=== PATIENT | female | born 1955 | race African-American/Black ===

== ENCOUNTER 2017-02-12 09:29 | Inpatient (IN) | payer MEDICARE, MEDICAID ==
[~2017-02-12] VITALS: Ht 152.4 cm; Wt 63.6 kg
--- NOTE | ~2017-02-12 | HEMODYNAMI ---
PATIENT:SARAH ROBERTS MEDICAL RECORD: [id number] : 57 LOCATION:[address] ADMISSION DATE: 02/12/17 Generatedon:02/16/201715:29 Patient name: SARAH ROBERTS Patient #: [id number] SSN: : 1955 Date of study: 02/16/2017 Page: Of Hemodynamic Procedure Report Patient Data Patient Demographics Procedure consent was obtained First Name: SARAH Gender: Female Last Name: ARMANDO : 1955 [facility] Initial: JOHN Age: 61 year(s) Patient #: [id number] Race: Black Additional ID: [id number] Contact details [address]: [address] [place] [address] State: [place] City: [place] Zip code: [address] Admission Admission Data Admission Date: 02/12/2017 Admission Time: 9:29 Room #: [facility] Procedure Procedure Types Cath Procedure Peripheral Cath Diagnostic Procedure Abd/Extremity Procedure Description Procedure Date Procedure Date: 02/16/2017 Procedure Start Time: 14:59 Procedure Staff Name Function Geoff Ureña MD Performing Physician Jamaal Steward RT Scrub Laquita Hernandez RN Nurse Jamaal Steward RT Monitor Procedure Data Cath Procedure Fluoroscopy Diagnostic fluoroscopy Total fluoroscopy Time: 2.4 time: 2.4 min min Diagnostic fluoroscopy Total fluoroscopy dose: 278 dose: 278 mGy mGy Contrast Material Contrast Material Type Amount (ml) Isovue 300 47 Entry Location Entry Primary Successful Side Size Upsize Upsize Entry Closure Succes sful Closure Location (Fr) 1 (Fr) 2 (Fr) Remarks Device Remarks Femoral Left 5 Fr Exoseal artery Diagnostic catheters Device Type Used For End Catheter Placement Merit UHF Pigtail VESSEL SIZING 5Fr 65CM catheter Procedure Medications Medication Administration Route Dosage Fentanyl I.V. 50 mcg Versed I.V. 1 mg Hemodynamics Rest Heart Rate: 91 (bpm) Snapshots Pre Cath Intra NCS Post Cath Vital Signs Time Heart Resp SPO2 NIBP (mmHg) Rhythm Pain Sedation Rate (ipm) (%) Status Level (bpm) 14:23:29 91 27 96 116/85(99) NSR 0 (11) 10(A) , No pain 14:27:29 90 27 97 115/91(101) NSR 0 (11) 10(A) , No pain 14:31:30 91 33 93 117/82(101) NSR 0 (11) 10(A) , No pain 14:35:32 92 28 91 118/87(103) NSR 0 (11) 10(A) , No pain 14:39:32 92 29 95 121/89(105) NSR 0 (11) 10(A) , No pain 14:43:32 92 26 97 121/94(102) NSR 0 (11) 10(A) , No pain 14:47:35 91 25 98 118/82(100) NSR 0 (11) 10(A) , No pain 14:51:37 88 17 99 123/89(109) NSR 0 (11) 10(A) , No pain 14:55:43 91 30 100 119/82(99) NSR 0 (11) 10(A) , No pain 14:59:46 91 27 98 127/84(106) NSR 0 (11) 10(A) , No pain 15:03:50 92 21 94 123/92(109) NSR 0 (11) 9(A) , No pain 15:07:52 93 25 95 122/93(109) NSR 0 (11) 9(A) , No pain 15:11:51 93 14 94 122/96(108) NSR 0 (11) 9(A) , No pain 15:15:55 93 15 93 114/87(110) NSR 0 (11) 9(A) , No pain 15:19:57 93 19 96 116/84(103) NSR 0 (11) 9(A) , No pain 15:23:59 92 18 96 122/86(101) NSR 0 (11) 9(A) , No pain 15:28:02 91 16 96 120/84(112) NSR 0 (11) 9(A) , No pain Medications Time Medication Route Dose Verified Delivered Reason Notes Effectivene ss by by 15:00:03 Fentanyl I.V. 50 Laquita Laquita for mcg Mary Mary sedation RN RN 15:00:14 Versed I.V. 1 mg Laquita Laquita for Mary Hernandez sedation RN finisher card tender Log Time Note 13:43:24 Time tracking: Regular hours 13:43:32 Plan of Care:Hemodynamics will remain stable., Cardiac rhythm will remain stable., Comfort level will be maintained., Respiratory function will remain adequate., Patient/ family verbilizes understanding of procedure., Procedure tolerated without complication., Recovers from procedure without complications.. 13:43:43 Patient received from PCU to [facility] 2 Alert and oriented. Tansferred to table in Supine position. 13:43:44 Correct patient and procedure confirmed by team. 13:43:45 Signed procedure consent form obtained from patient. 13:43:46 ECG and BP/O2 sat monitors applied to patient. 13:43:47 Full Disclosure recording started 13:43:48 - 13:43:53 H&P Date Dictated: 02/16/2017 Within 30 days and on chart.. 13:43:55 Pre-procedure instructions explained to patient. 13:43:56 Pre-op teaching completed and patient verbalized understanding. 13:43:58 Family in waiting room. 13:43:59 Patient NPO since Midnight. 13:44:06 Use device set IR Diagnostic 13:44:07 Acist Syringe opened to sterile field. 13:44:08 Acist Hand Control opened to sterile field. 13:44:08 Acist Manifold opened to sterile field. 13:44:09 Bag Decanter opened to sterile field. 13:44:09 Sterile Angiographic Pack opened to sterile field. 13:44:21 Is the patient allergic to Iodine/contrast media? No. 13:44:24 Is patient on blood thinner?No 13:44:25 Patient diabetic? Yes. 13:44:27 If diabetic: On Metformin? No 13:44:28 - 13:44:29 ----Pre-sedation anethsthesia assessment.---- 13:44:34 Previous problem with sedation/anesthesia? No ? 13:44:35 Snore? Yes 13:44:36 Sleep apnea? No 13:44:39 Deviated septum? No 13:44:41 Opens mouth fully? Yes 13:44:43 Sticks out tongue? Yes 13:44:51 Airway obstruction? Yes copd asthma 13:44:55 Dentures? No ? 13:53:14 Pre procedure: right dorsailis pedis pulse Inaccessible 13:53:19 Pre procedure: right posterior tibial pulse Inaccessible 13:53:33 Pre procedure: right dorsailis pedis pulse 0-Absent 13:53:39 Pre procedure: left posterior tibial pulse Doppler 13:53:49 pt has aka on right side 14:18:35 Vital chart was started 14:18:36 Baseline sample Acquired. 14:18:44 Rhythm: sinus rhythm 14:43:08 Jamaal Steward RT (R) (CV) sent for patient. Start room use. 14:57:09 Physician arrived 14:57:10 --------ALL STOP TIME OUT------ 14:57:10 Final Timeout: patient, procedure, and site verified with staff and physician. All members of the team are in agreement. 14:57:55 Left groin site verified by team. 14:58:39 Physical assessment completed. ASA score P 3 - A patient with severe systemic disease as per Geoff Ureña MD. 14:58:44 Sedation plan: IV Moderate Sedation Versed, Fentanyl 14:59:02 Procedure started. 14:59:30 Local anesthetic to left femerol artery with Lidocaine 1% by Geoff Ureña MD.INITIAL ACCESS ONLY 15:00:03 Fentanyl 50 mcg I.V. was administered by Laquita Hernandez RN; for sedation; 15:00:14 Versed 1 mg I.V. was administered by Laquita Hernandez RN; for sedation; 15:00:28 A 5 Fr sheath was inserted into the Left Femoral artery 15:00:36 Terumo 5Fr Marathon Sheath opened to sterile field. 15:00:36 Cook DOC .035 guide wire opened to sterile field. 15:00:37 PERCUTANEOUS ENTRY 19GA needle opened to sterile field. 15:00:57 A [email or web address] UHF Pigtail VESSEL SIZING 5Fr 65CM catheter was advanced over the wire and used for . 15:08:30 BasixTOUCH Inflation Syringe opened to sterile field. 15:08:30 Cook GILLETTE 260 guide wire opened to sterile field. 15::28 Entrust 8 x 40 Stent was deployed across Undefined1 . 15:10:56 Inflation number: 1 A Cordis Powerflex Pro 8.0 x 40 x 80cm balloon was prepped and advanced across the Undefined1, then inflated to 0 ANAND for 0:01 (min:sec). 15:15:44 ANGIOSEAL-VIP PLUS 6 FR opened to sterile field. 15:19:23 Sheath removed intact; hemostasis achieved with Exoseal to the Left Femoral artery. 15:19:38 Procedure ended.(Physican Out) 15:21:34 Fluoroscopy time 02.40 minutes. 15:21:38 Fluoroscopy dose: 278 mGy 15:21:38 Flurop Dose total: 278 15:21:44 Contrast amount:Isovue 300 47ml. 15:21:46 Sharps counted by scrub and verified by R.N. 15:21:48 Insertion/operative site no bleeding no hematoma. 15:21:53 Post-op/insertion site Left Femoral artery dressed using a 4 x 4 and Tegaderm. 15:21:55 Post Procedure Pulses reassessed and unchanged 15:22:02 Post-procedure physical assessment completed. ASA score P 3 - A patient with severe systemic disease as per Geoff Ureña MD. 15:22:04 Post procedure rhythm: unchanged. 15:25:09 Procedure and supply charges have been captured, reviewed, submitted an d are correct. 15:29:05 Report given to PCU. 15:29:09 Patient transfered to PCU with Bed. 15:29:54 Vital chart was stopped Intervention Summary Intervention Notes Time ActionType Lesion and Equipment Action# Pressure Duration Attributes Used 15:: Deploy self Undefined1 Entrust 8 1 expanding x 40 stent Stent 15::56 Inflate Undefined1 Cordis 1 0 00:01 balloon Powerflex Pro 8.0 x 40 x 80cm balloon Device Usage Item Name Manufacture Quantity Catalog Number Hospital Part Current Minimal Lot# / Charge Number Stock Stock Serial# Code Acist Syringe Acist 1 77133 [id number] 672278 028018 20 Medical Systems Inc Acist Hand Acist 1 81337 219196 619222 074786 5 Control Medical Systems Inc Acist Acist 1 26999 208247 432015 648053 5 Manifold Medical Systems Inc Bag Decanter Microtek 1 2002S 358172 87486 507749 5 Medical Inc. Sterile Cardinal 1 [id number] 767496 238743 5 Angiographic Health Pack Terumo 5Fr Terumo 1 [id number] 446675 010885 551216 40 Marathon Sheath Cook DOC .035 Cook Medical 1 [id number] 952721 159678 5 [id number] guide wire PERCUTANEOUS Cook Medical 1 [id number] 676316 481115 5 [id number] ENTRY 19GA needle Merit F Merit 1 [id number] 118556 217322 5 Pigtail Medical VESSEL SIZING 5Fr 65CM catheter BasixTOUCH Merit 1 [id number] 134251 993341 697151 5 Inflation Medical Syringe Cook GILLETTE Cook Medical 1 [id number] 550654 849388 5 [id number] 260 guide wire Entrust 8 x Ev3 1 [id number] 650493 967893 563099 5 [id number] 40 Stent [id number] Cordis Cardinal 1 [id number] 582041 318490 820279 5 Powerflex Pro Health 8.0 x 40 x 80cm balloon ANGIOSEAL-VIP St Mervin 1 [id number] 871300 608957 5 [id number] PLUS 6 FR Signature Audit [place] Stage Time Signature Unsigned Intra-Procedure 02/16/2017 Jamaal 3:29:51 PM Shuffield RT (R) (CV) Signatures Monitor : Jamaal Signature : Jaradield RT Date : Time : [facility] [place] [address] [place] [address]
--- NOTE | 2017-02-12 09:57 | NUR ---
ARRIVE TO ROOM VIA HOME ELECTRIC WHEELCHAIR. ALERT AND ORIENTED X4. TRANSFER TO BED FROM WHEELCHAIR WITH OUT ASSISTANCE. RT AKA. LT LEG COLD TO TOUCH. FAINT PULSE PALPATED. NONSKID SOCK PLACED ON LT FOOT. INSTRUCT NOT TO EAT OR DRINK ANYTHING UNTIL CTA AFRO AND DOPPLER COMPLETE. DENIES ANY NEEDS. CONTINUE ADMISSION PROCESS. BED LOCKED AND LOW. CALL LIGHT IN REACH. TWO SIDERAILS UP.
[2017-02-12] MEDS ORDERED: TEMAZEPAM30 MG PO (10:25)
[2017-02-12] MEDS ORDERED: LIPITOR20 MG PO (10:27)
[2017-02-12] MEDS ORDERED: PROVENTIL HFA6.7 GM INH (10:27)
[2017-02-12 10:28] LABS: BASOPHILS 0.1 % (0-2); EOSINOPHILS 0.6 % (0-7); HEMOGLOBIN 13.1 g/dL (12-16); IMMATURE GRANULOCYTES 0.1 % (0-5); LYMPHOCYTES 38.8 % (15-50); MCH 24.8 pg (26.0-34.0); MCHC 31.2 g/dL (31.0-37.0); MCV 79.4 fL (80.0-100.0); MEAN PLATELET VOLUME 9.9 fL (7.4-10.4); MONOCYTES 6.5 % (2-11); NEUTROPHILS 53.9 % (40-80); PLATELET COUNT 314 10x3/uL (130-400); RBC 5.29 10x6/uL (4.00-5.40); RDW 14.6 % (11.5-14.5)
[2017-02-12] MEDS ORDERED: COUMADIN5 MG PO (10:28)
[2017-02-12] MEDS ORDERED: CYCLOBENZAPRINE10 MG PO (10:30)
[2017-02-12] MEDS ORDERED: FLUTICASONE PRO16 GM NASAL (10:31)
[2017-02-12] MEDS ORDERED: HUMALOG MIX 50/53 ML SC ×2 (10:32→10:33)
[2017-02-12] MEDS ORDERED: LIDODERM 5 %1 PATCH TRANSDERM (10:35)
[2017-02-12] MEDS ORDERED: LEVEMIR100 U/M1 SC (10:35)
[2017-02-12] MEDS ORDERED: SYNTHROID137 MCG PO (10:36)
[2017-02-12] MEDS ORDERED: LYRICA50 MG PO (10:37)
[2017-02-12] MEDS ORDERED: LISINOPRIL5 MG PO (10:37)
[2017-02-12 10:38] LABS: APTT 70.6 SECONDS (22.8-39.4)
[2017-02-12] MEDS ORDERED: METOPROLOL TART25 MG PO (10:39)
[2017-02-12] MEDS ORDERED: PROTONIX40 MG PO (10:40)
[2017-02-12] MEDS ORDERED: MIRALAX17 GM PO (10:40)
[2017-02-12] MEDS ORDERED: ULTRAM50 MG PO (10:41)
[2017-02-12 10:51] LABS: ALBUMIN 3.6 g/dL (3.4-5.0); ALKALINE PHOSPHATASE 84 U/L (46-116); ALT (SGPT) 50 U/L (10-68); BILIRUBIN - TOTAL 0.21 mg/dL (0.2-1.3); CALC OSMOLALITY 285 mosm/kg (275-300); CALCIUM 10.1 mg/dL (8.5-10.1); CARBON DIOXIDE 26.5 mmol/L (21.0-32.0); CHLORIDE - SERUM 107 mmol/L (98-107); CREATININE - SERUM 0.8 mg/dL (0.6-1.3); GLUCOSE 148 mg/dL (74-106); POTASSIUM - SERUM 4.3 mmol/L (3.5-5.1); PROTEIN - SERUM 7.8 g/dL (6.4-8.2); SODIUM 142 mmol/L (136-145); UREA NITROGEN 12 mg/dL (7-18); eGFR NON AFRICAN AMERICAN 77 mL/min (90-120)
[2017-02-12 11:03] LABS: INR 8.14 (0.85-1.17); PROTIME 69.8 SECONDS (11.6-15.0)
[2017-02-12 12:00] VITALS: BP 102/72
[2017-02-12 12:13] LABS: APPEARANCE HAZY (CLEAR); BILIRUBIN NEGATIVE (NEGATIVE); COLOR BROWN (YELLOW); GLUCOSE NEGATIVE (NEGATIVE); KETONE NEGATIVE (NEGATIVE); LEUKOCYTE ESTERASE 1+ (NEGATIVE); NITRITE NEGATIVE (NEGATIVE); PROTEIN 1+ mg/dL (NEGATIVE); SPECIFIC GRAVITY 1.025 (1.005-1.020); UROBILINOGEN NORMAL (NORMAL)
[2017-02-12 12:15] LABS: EPITHELIAL CELLS RARE /hpf (0-5); RED CELLS - URINE >50 /hpf (0-5); WHITE CELLS - URINE RARE /hpf (0-5)
[2017-02-12 12:16] LABS: BACTERIA MANY /hpf (NONE SEEN)
[2017-02-12 12:17] LABS: YEAST OCC /hpf (NONE SEEN)
[2017-02-12 12:41] VITALS: BP 103/74; Ht 152.4 cm; Wt 63.6 kg
[2017-02-12 16:00] VITALS: BP 80/56
--- NOTE | 2017-02-12 17:19 | NUR ---
ALERT AND ORIENTED X4. TIBIAL PULSE FAINT. VERIFY PULSE WITH DOPPLER. TIBIAL PULSE MARKED. DOCTOR EXPLAIN INR TOO HIGH TO OPERATED. PLAN TO MONITOR INR FOR THERAPEUTIC RANGE BEFORE PROGRESSING WITH PLAN OF CARE. DENIES ANY NEEDS. BED LOCKED AND LOW. CALL LIGHT IN REACH. TWO SIDERAILS UP. SINUS TACH 112bpm ON TELEMETRY.
--- NOTE | 2017-02-12 19:44 | NUR ---
RESUMED CARE OF PT, LYING IN BED RESPIRATIONS EVEN AND UNLABORED ON ROOM AIR. RIGHT WRIST SALINE LOCKED. 114 ST ON TELEMETRY. COMPLAINS OF LEFT KNEE PAIN. WILL CONTINUE TO MONITOR. SEE NURSE ASSESSMENT. CALL LIGHT IN REACH.
--- NOTE | 2017-02-12 22:23 | NUR ---
NIGHT MEDS GIVEN, 54 UNITS OF LEVEMIER GIVEN FSBS 144, HUMALOG HELD. WILL CONTINUE TO MONITOR.
[2017-02-12 23:00] VITALS: BP 97/65
--- NOTE | 2017-02-13 00:45 | NUR ---
LYING IN BED WITH EYES CLOSED, CALL LIGHT IN REACH. WILL CONTINUE TO MONITOR.
[2017-02-13 01:51] VITALS: BP 100/80
--- NOTE | 2017-02-13 02:20 | NUR ---
2117: RESPIRATORY AT BEDSIDE TO GIVE TREATMENT, NURSE AT BEDSIDE TO OBTAIN FSBS. RESPIRATORY STATED HAVING A DIFFICULT TIME GETTING PULSE OX READING. @ 2000 VS PULSE OX WAS 94% ON ROOM AIR. 2126: BACK TO ADMINISTER INSULIN AND PT WAS ON 5.5 LPM VIA NC, CHECKED PULSE OX AND GOT A READING OF 99%. 2210: DECREASED O2 TO 4LPM, HOLDING O2 SATURATION @ 99% 2349: DECREASED O2 TO 3LPM, 98% 0100: 100% ON 1.5LPM 0215: 100% ON ROOM AIR.
--- NOTE | 2017-02-13 04:23 | NUR ---
AUTOMOBILE SALES REPRESENTATIVE AT BEDSIDE TO OBTAIN VITALS, CALL LIGHT IN REACH. WILL CONTINUE WITH PLAN OF CARE.
[2017-02-13 05:31] LABS: INR 6.59 (0.85-1.17); PROTIME 58.9 SECONDS (11.6-15.0)
[2017-02-13 05:36] VITALS: BP 99/63
--- NOTE | 2017-02-13 06:37 | NUR ---
NO CHANGES FROM PREVIOUSE ASSESSMENT, CALL LIGHT IN REACH.
--- NOTE | 2017-02-13 07:35 | NUR ---
ASSESSMENT COMPLETED. TELEMERTY SHOWS ST 103. RIGHT WRIST SL. RIGHT AKA JUST BELOW HIP. PT GETS UP TO BEDSIDE COMMODE BY HER SELF.LEFT LEG HAS SOME NUMBNESS TO CALF AREA. PT DENIES ANY NEEDS AT PRESENT TIME.
[2017-02-13 08:00] VITALS: BP 89/57
[2017-02-13 11:55] VITALS: BP 98/63
--- NOTE | 2017-02-13 13:50 | NUR ---
LYING QUIETLY WITH EYES CLOSED. NO DISTRESS NOTED. WILL MONITOR
--- NOTE | 2017-02-13 15:58 | NUR ---
UP ON SIDE OF BED. DENIES ANY NEEDS. CALL LIGHT IN REACH WITH SR UP. WILL MONITOR
[2017-02-13 16:00] VITALS: BP 103/69
--- NOTE | 2017-02-13 20:26 | NUR ---
PT RESTING IN BED. ALERT/ORIENTED. WEARING O2 @2 L/NC. SALINE LOCK TO RIGHT WRIST. SEE ASSESSMENT, MONITOR AND CPOC.
[2017-02-13 21:01] VITALS: BP 95/61
[2017-02-14 01:04] VITALS: BP 99/64
[2017-02-14 04:18] VITALS: BP 98/69
[2017-02-14 06:43] LABS: INR 3.42 (0.85-1.17); PROTIME 34.9 SECONDS (11.6-15.0)
[2017-02-14 08:00] VITALS: BP 102/63
--- NOTE | 2017-02-14 11:22 | NUR ---
ALERT AND ORIENTED X4. BATH AND LINEN CHANGE COMPLETE. UP IN WHEELCHAIR RIDING IN [place]. SINUS TACH 103bpm ON TELEMETRY. DENIES ANY NEEDS. URINE COLLECTED AND TAKEN TO LAB. CONTINUE PLAN OF CARE AND SAFETY PRECAUTIONS.
[2017-02-14 12:00] VITALS: BP 124/73
[2017-02-14 16:00] VITALS: BP 101/67
--- NOTE | 2017-02-14 17:06 | NUR ---
RESTING IN BED. ALERT AND ORIENTED X4. DENIES SOB OR PAIN. SINUS TACH 110bpm ON TELEMETRY. DENIES ANY NEEDS. CONTINUE PLAN OF CARE. BED LOCKED AND LOW. CALL LIGHT IN REACH. TWO SIDERAILS UP.
--- NOTE | 2017-02-14 19:36 | NUR ---
ASSESSMENT COMPLETEM A&O. SITTING UP IN BED WATCHING TV. RESPERATIONS EVEN ON 02 AT 2 LITER VIA NC. IV TO RIGHT WRIST SL. SITE CLEAN AND DRY. LIDOCAIN PATCH NOTED TO RIGHT AKA. LEFT LEG COOL TO THE TOUCH. PT DENIES PAIN OR NEEDS. BED LOW, CL IN REACH.
--- NOTE | 2017-02-14 21:53 | NUR ---
HS MEDS GIVEN WITH FRESH ICE WATER, BS 269, COVERED PER S/S. PT DENIES OTHER NEEDS, BED LOW, CL IN REACH.
--- NOTE | 2017-02-14 23:46 | NUR ---
METAL CONTROL COORDINATOR AT BEDSIDE TO OBTAIN VITALS, CALL LIGHT IN REACH. WILL CONTINUE WITH PLAN OF CARE.
[2017-02-15] VITALS: BP 107/65
--- NOTE | 2017-02-15 02:55 | NUR ---
RESTING WITH EYES CLOSED, RESPERATIONS EVEN, NO S/S DISTRESS NOTED.
[2017-02-15 04:00] VITALS: BP 97/67
[2017-02-15 05:57] LABS: INR 1.71 (0.85-1.17)
--- NOTE | 2017-02-15 07:15 | NUR ---
ASSESSMENT DONE. DENIES NEEDS.
--- NOTE | 2017-02-15 08:15 | NUR ---
RESTS IN BED EATING BRK. HAFSA NEEDS AT THJIS TIME. CALL LIGHT IN REACH. WILL MONITOR.
[2017-02-15 08:22] VITALS: BP 102/73
[2017-02-15 12:14] VITALS: BP 106/63
[2017-02-15 15:46] VITALS: BP 99/60
--- NOTE | 2017-02-15 17:22 | NUR ---
Patient Name: SARAH ROBERTS Admission Status: Urgent Accout number: [id number] Admission Date: 02-12-2017 : 1955 Admission Diagnosis:PAIN IN LEFT FOOT Attending: BRENDA Current LOS: 3 Anticipated DC Date: 02-15-2017 Planned Disposition: Home Primary Insurance: MEDICARE A & B Discharge Planning Comments: * Is the patient Alert and Oriented? Yes 0 * How many steps to enter\exit or inside your home? NONE 0 * PCP DR. RADHA WILLIS, [place], [place] 0 * Pharmacy [facility] 0 * Preadmission Environment Home Alone 0 * ADLs Independent 0 * Equipment Bedside Commode Shower Chair Wheelchair 0 WALKER 0 * Other Equipment ELECTRIC WHEELCHAIR NO MEDICAL EQUIPMENT PROVIDER PREFERENCE 0 * List name and contact numbers for known caregivers / representatives who currently or will assist patient after discharge: NYASIA ROSALES DTR, 0 * Community resources currently utilized Private Duty Care 0 * Please name any agencies selected above. [facility], DTR IS PT'S PAID CAREGIVER, ALL DAY EVERY DAY AND SOME NIGHTS PER PATIENT 0 * Additional services required to return to the preadmission environment? No 0 * Can the patient safely return to the preadmission environment? Yes 0 * Has this patient been hospitalized within the prior 30 days at any hospital? No 0 CM MET WITH PT IN ROOM TO DISCUSS DISCHARGE PLANNING AND NEEDS. PT REPORTS LIVING AT HOME INDEPENDENTLY AND ALONE. PT HAS [facility] WHO PAYS HER DAUGHTER CAREGIVER FOR PT EVERY DAY AND SOME NIGHTS. PT HAS BEDSIDE COMMODE, SHOWER CHAIR AND ELECTRIC WHEELCHAIR AND WALKER. PT REPORTS ABILITY TO TRANSFER SELF AND USE A WALKER FOR SHORT DISTANCES. CM DISCUSSED AVAILABILITY OF HOME HEALTH, REHAB SERVICES AND MEDICAL EQUIPMENT. PT DENIES DISCHARGE NEEDS, REPORTS SHE WILL NEED SCAT TRANSPORTATION ON DAY OF DISCHARGE FOR DISCHARGE HOME. PT PLANS TO DISCHARGE BACK TO HER APARTMENT WITH DAUGHTER PAID TIE PULLER CAREGIVER. CM TO ASSIST WITH ARRANGING MEDICAID TRANSPORTATION FOR DISCHARGE HOME; PT HAS ELECTRIC WHEELCHAIR WITH HER AND RODE THE MEDICAID BUS TO [place]. Project Structural Engineer: Hernando Yan
--- NOTE | 2017-02-15 18:18 | NUR ---
WITHOUT CHANGES OR DISTRESS NOTED AT THIS TIME DENIES NEEDS
[2017-02-15 19:00] VITALS: BP 111/72
--- NOTE | 2017-02-15 19:17 | NUR ---
UP IN W/C AROUND THE NURSES STATION, PT DENIES NEEDS.
--- NOTE | 2017-02-15 19:48 | NUR ---
RN ER AT BED SIDE, BATH IN PROGRESS.
--- NOTE | 2017-02-15 21:17 | NUR ---
HS MEDS GIVEN, BS 169, NO COVERAGE GIVEN DUE TO PT BEING NPO AFTER [place] FOR PROCEDURE. PT DENIES PAIN OR OTHER NEEDS, BED LOW, CL IN REACH.
[2017-02-16] VITALS (14 sets, daily range): BP systolic 99–138; BP diastolic 59–78
--- NOTE | 2017-02-16 02:10 | NUR ---
RESTING WITH EYES CLOSED, RESPERATIONS EVEN, NO S/S DISTRESS NOTED.
[2017-02-16 05:05] LABS: BASOPHILS 0.3 % (0-2); EOSINOPHILS 1.2 % (0-7); HEMATOCRIT 39.6 % (36.0-48.0); HEMOGLOBIN 12.3 g/dL (12-16); IMMATURE GRANULOCYTES 0.1 % (0-5); LYMPHOCYTES 41.4 % (15-50); MCH 24.2 pg (26.0-34.0); MCHC 31.1 g/dL (31.0-37.0); MONOCYTES 6.5 % (2-11); NEUTROPHILS 50.5 % (40-80); PLATELET COUNT 337 10x3/uL (130-400); RBC 5.08 10x6/uL (4.00-5.40); RDW 14.4 % (11.5-14.5); WBC 7.7 10x3/uL (4.8-10.8)
[2017-02-16 05:14] LABS: APTT 24.3 SECONDS (22.8-39.4)
[2017-02-16 05:17] LABS: INR 1.21 (0.85-1.17); PROTIME 15.2 SECONDS (11.6-15.0)
[2017-02-16 05:20] LABS: ANION GAP 13.7 mmol/L (8-16); CALCIUM 9.6 mg/dL (8.5-10.1); CARBON DIOXIDE 24.6 mmol/L (21.0-32.0); CREATININE - SERUM 0.9 mg/dL (0.6-1.3); POTASSIUM - SERUM 4.3 mmol/L (3.5-5.1)
--- NOTE | 2017-02-16 05:31 | NUR ---
BS 185 ON LAB DRAW, NO COVERAGE GIVEN DUE TO PT BEING NPO FOR PROCEDURE.
--- NOTE | 2017-02-16 12:46 | NUR ---
HAS BEEN UP IN WC. NOW RESTING IN BED. MONITOR SHOWS SR AT 93. WILL CONTINUE TO MONITOR.
--- NOTE | 2017-02-16 15:30 | NUR ---
RETURN FROM IR PER BED. LT GROIN DRSG C/D, PULSE PLAP
--- NOTE | 2017-02-16 18:39 | NUR ---
WITHOUT CHANGES OR DISTRESS NOTED AT THIS TIME. DENIES NEEDS.
--- NOTE | 2017-02-16 19:32 | NUR ---
INITIAL ROUNDS COMPLETEDA T 1920 HRS. PT IN MOTORIZED WHEELCAHIR IN HALLS. DENIES ANY DISCOMFORT. WILL CONTINUE TO MONITOR.
--- NOTE | 2017-02-16 21:56 | NUR ---
PM SNACK SERVED WITH PM MEDS. HUMALOG 6 UNITS GIVEN SUB-Q TO UPPER R ARM FOR BS 289. SCHEDULED LEVIMER GIVEN. ULTRAM 50 MG PO GIVNE FOR C/O L GROIN PAIN. WILL CONTINUE TO MONITOR. SR UP X2, CALL LIGHT WITHIN REACH.
[2017-02-17] VITALS: BP 95/65
--- NOTE | 2017-02-17 00:29 | NUR ---
PT AWAKE; DENIES ANY DISOCMFORT. NO CHANGES TO L GROIN OR L PEDAL PULSE NOTED. WILL CONTINUE TO MONITOR.
--- NOTE | 2017-02-17 02:18 | NUR ---
PT RESTING WITH EYES CLOSED. RESP EVEN AND REGULAR. SR UP X2, CALL LIGHT WITHIN REACH.
[2017-02-17 04:00] VITALS: BP 113/71
--- NOTE | 2017-02-17 04:49 | NUR ---
ULTRAM 50 MG PO GIVEN FOR C/O INCISIONAL PAIN. NO CHANGES TO L GROIN OR L PEDAL PULSES NOTED. WILL CONTINUE TO MONITOR.
[2017-02-17 05:25] LABS: INR 1.1 (0.85-1.17); PROTIME 14.1 SECONDS (11.6-15.0)
--- NOTE | 2017-02-17 06:40 | NUR ---
VSS THROUGHOUT NIGHT. PT STATED ULTRAM ALLEVIATED INCISIONAL PAIN. AM FSBS 165. SCHEDULED 50/50 GIVEN SUB-Q TO UPPER L ARM WELL 240CC OF APPLE JUICE. NEEDS MET; WILL CONTINUE TO MONITOR.
--- NOTE | 2017-02-17 07:46 | NUR ---
ASSESSMENT COMPLETED. TELEMERTY SHOWS ST AT 90. O2 AT 2 L/M PER NC. LEFT GROIN DRSG DRY AND INTACT. RIGHT FA SL, PATENT. DENIES ANY NEEDS. WILL MONITOR
[2017-02-17 08:00] VITALS: BP 107/80
[2017-02-17 12:00] VITALS: BP 96/57
--- NOTE | 2017-02-17 13:21 | NUR ---
UP TO BATHROOM. DENIES ANY NEEDS. CALL LIGHT IN REACH
--- NOTE | 2017-02-17 13:26 | HP ---
PATIENT: SRAAH ROBERTS [facility] MEDICAL RECORD: [id number] ACCOUNT: [id number] LOCATION:[address] : 57 ADMISSION DATE: 02/12/17 HISTORY AND PHYSICAL EXAMINATION SARAH Gallardo (61yo, F) ID# [id number]. Date/Time02/01/2017 02:[id number] 1955[facility] Dept.NPP[facility] ClinicProviderEDHENRIK DAVALOS MDInsuranceMed Primary: [place] ([place]) Insurance # : [id number] Employer Name : RETIRED Med Secondary: [place]) Insurance # : [id number] Employer Name : RETIRED Prescription: [facility] MEDICAID ADMINISTRATION - Member is eligible. Chief Complaint PVD - peripheral vascular disease initial appointment for PVD Patient's Care Team Primary Care Provider: STAN RAMIREZ [employer]: [address], [place] [address], , Vitals BP:100/70 sitting R arm 02/01/2017 02:07 pm 100/74 sitting L arm 02/01/2017 02:08 pmBP Cuff Size:adult 02/01/2017 02:07 pm adult 02/01/2017 02:08 pmHR:125,reg 02/01/2017 02:09 pmHt:5 ft 02/01/2017 02:09 pmWt:143 lbs 02/01/2017 02:09 pmNotes:had R leg amputated from "blood clot", now states LLE blood flow is faint and has pain in her leg and foot. 02/01/2017 02:10 pmBMI:27.9 02/01/2017 02:09 pmAllergies Reviewed Allergies NKDAMedications Reviewed Medications albuterol sulfate HFA 90 mcg/actuation aerosol inhaler Inhale 2 puff(s) every 4 hours by inhalation route.01/30/17 enteredKathy Wilsonatorvastatin 20 mg tablet Take 1 tablet(s) every day by oral route.01/30/17 enteredKathy WilsonCoumadin 5 mg tablet Take 1 tablet(s) every day by oral route.01/30/17 enteredKathy Wilsoncyclobenzaprine 10 mg tablet Take 1 tablet(s) 3 times a day by oral route.01/30/17 [facility] Allergy Relief 50 mcg/actuation nasal spray,suspension [place] 1 spray(s) every day by intranasal route.01/30/17 entered[facility] DowntownHumaLOG KwikPen 100 unit/mL subcutaneous Inject 24 unit(s) 3 times a day by subcutaneous route.01/30/[address] [facility]Radhavemir FlexTouch 100 unit/mL (3 mL) subcutaneous insulin pen Inject 54 unit(s) by subcutaneous route at bedtime.01/30/[address] [facility]levothyroxine 137 mcg capsule Take 1 capsule(s) every day by oral route.01/30/[address] HospitalLidoderm 5 % topical patch APPLY 1 PATCH BY TRANSDERMAL ROUTE ONCE DAILY (MAY WEAR UP TO 12HOURS.)01/30/[address] Hospitallisinopril 5 mg tablet Take 1 tablet(s) every day by oral route.01/30/[address] HospitalLyrica 50 mg capsule Take 1 capsule(s) 3 times a day by oral route.01/30/[address] Hospitalmetoprolol tartrate 25 mg tablet Take 2 tablet(s) twice a day by oral route.01/30/[address] HospitalMiralax 17 gram/dose oral powder HISTORY AND PHYSICAL [id number] SARAH ROBERTS Take by oral route.01/30/[address] Hospitalpantoprazole 40 mg tablet,delayed release Take 1 tablet(s) twice a day by oral route.01/30/[address] HospitalRestoril 30 mg capsule Take 1 capsule(s) every day by oral route as needed.01/30/[address] HospitaltraMADol 50 mg tablet Take 1 tablet(s) every 6 hours by oral route.01/30/17 [facility] oxygen 2L as directed Problems Reviewed Problems Chronic cerebrovascular accident - Onset: 02/01/2017 Diabetes mellitus - Onset: 02/01/2017 Limb pain at rest due to atherosclerosis of [place] artery - Onset: 02/01/2017 Peripheral arterial occlusive disease - Onset: 01/30/2017 Family History Discussed Family History Father- Heart disease ( age: 57)Social History Discussed Social History Cardiology Family history of heart disease?: N Smoking Status: Unknown if ever smoked High Cholesterol: Y High blood pressure: Y Exercise level: None Diabetes: Y Surgical History Reviewed Surgical History Amputation - 08/06/2015 - R" leg Removal of thyroid - 08/06/2009 stents in 2017 stomach surgery c_section x 2 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 HPI Peripheral Vascular Disease Reported by patient. HISTORY AND PHYSICAL [id number] SARAH ROBERTS Location: calf; foot Quality: cramping; burning; aching Severity: severe Alleviating Factors: rest; elevation Associated Symptoms: no skin discoloration; no fever atherosclerosis of the lower extremities with rest pain ROS Patient reports no incontinence, no difficulty urinating, no hematuria, and no increased frequency; stent right ureter. She reports no muscle aches, no muscle weakness, no arthralgias/joint pain, no back pain, and no swelling in the extremities; A-K amputation Right leg Rest pain left lower extremity . She reports no fever, no night sweats, no significant weight gain, no significant weight loss, and no exercise into lerance. She reports no dry eyes, no irritation, and no vision change. She reports no difficulty hearing and no ear pain. She reports no frequent nosebleeds and no nose/sinus problems. She reports no sore throat, no bleeding gums, no snoring, no dry mouth , no mouth ulcers, no oral abnormalities, and no teeth problems. She reports no jugular vein distension and no swollen glands. She reports no chest pain, no arm pain on exertion, no shortness of breath when walking, no shortness of breath when lying down, n o palpitations, and no known heart murmur. She reports no cough, no wheezing, no shortness of breath, and no coughing up blood. She reports no abdominal pain, no vomiting, normal appetite, no diarrhea, not vomiting blood, no nausea, and no constipation. S h e reports no abnormal mole, no jaundice, and no rashes. She reports no loss of consciousness, no weakness, no numbness, no seizures, no dizziness, and no headaches. She reports no depression, no sleep disturbances, feeling safe in relationship, and no alc ohol abuse. She reports no fatigue. She reports no swollen glands and no bruising. She reports no runny nose, no sinus pressure, no itching, no hives, and no frequent sneezing. ROS as noted in the HPI Physical Exam Patient is a 61-year-old female. Constitutional: General Appearance well nourished and developed and healthy-appearing; sitting in a motorized wheelchair. Level of Distress chronically ill. Ambulation ambulating normally and in wheelchair. Cardiovascular: Apical Impulse not displaced or no thrill. Heart Auscultation normal s1 and s2; no murmurs, rubs, or gallops; and RRR. Arterial Pulses no abdominal aorta bruits, femoral bruits, or popliteal bruits; popliteal not palpable (left) and dorsalis pedis not palpable (left); and 2+ bilateral, carotid 2+ bilateral, and femoral 2+ bilateral; high right AK amputation. Edema no edema or varicosities. Lungs: Repiratory Effort no dyspnea. Percussion no hyperresonance or dullness or flatness. Auscultation no wheezing, rhonchi, or rales / crackles and breathing sounds normal, good air movement, and CTA except as noted. Abdomen: Bowl Sounds normal. Inspection and Palpation no tenderness, guarding, masses, or rebound tenderness and soft and non-distended. Liver non-tender and no hepatomegaly. Spleen non-tender and no splenomegaly. Hernia none palpable. Musculoskeletal System: Gait And Stance right AK amputation. Digits and Nails normal nails and no cyanosis. Joints, Bones, and Muscles limited ROM and abnormal strength. Neurologic: Cranial Nerves grossly intact. Reflexes DTRs 2+ bilaterally throughout. HISTORY AND PHYSICAL [id number] SARAH ROBERTS JOHN Sensation abnormal (neuropathy). Lymph Nodes: Lymph Nodes no cervical LAD, supraclavicular LAD, axillary LAD, or inguinal LAD. Eyes: Lids and Conjunctivae no discharge or pallor and non-injected. Pupils PERRLA. Cornea grossly intact. EOM EOMI. Lens clear. Sclera non-icteric. Neck: Neck no masses, enlarged lymph nodes, or carotid bruits and supple and trachea midline. Thyroid no enlargement or nodules and non-tender. Skin: Inspection and Palpation no rash, lesions, ulcers, jaundice, or abnormal nevi. Assessment / Plan atherosclerosis lower extremity with rest pain 1. Limb pain at rest due to atherosclerosis of [place] artery M79.605: Pain in left leg 2. Diabetes mellitus E11.9: Type 2 diabetes mellitus without complications 3. Chronic cerebrovascular accident I63.8: Other cerebral infarction Discussion Notes atherosclerosis lower extremity rest pain Will need carotid Doppler study CT angiogram and pelvis lower extremity Admission hospital for workup pain control Return to Office to see Virgilio Davalos MD at [facility] on or around 02/15/2017 VIRGILIO DAVALOS MD at 1326 CC: [id number] DICTATION DATE: 02/01/17 1400 STAIR BUILDER: LIN 02/12/17 1213 ADM IN [place] [id number] [place] [id number]
[2017-02-17 16:00] VITALS: BP 93/61
--- NOTE | 2017-02-17 17:39 | NUR ---
UP IN WHEELCHAIR. DENIES ANY NEEDS. CALL LIGHT IN REACH WITH SR UP.WILL MONITOR.
--- NOTE | 2017-02-17 18:27 | NUR ---
UP IN HALLWAY WITH WHEELCHAIR. DENIES ANY NEEDS. WILL MONITOR
[2017-02-17 20:00] VITALS: BP 104/70
--- NOTE | 2017-02-17 21:57 | NUR ---
REC'D IN BATHROOM. ALERT AND ORIENTED X4. NO DISTRESS NOTED. DENIED PAIN AT THIS TIME. DENIED FURTHER NEEDS AT THIS TIME. INSTRUCTED TO CALL IF NEEDED ANYTHING. VERBALIZED UNDERSTANDING. BED LOW, LOCKED, CALL LIGHT IN REACH. WILL CONT TO MONITOR.
[2017-02-18 04:00] VITALS: BP 101/69
[2017-02-18 05:30] LABS: INR 1.21 (0.85-1.17); PROTIME 15.2 SECONDS (11.6-15.0)
--- NOTE | 2017-02-18 05:54 | NUR ---
RESTING IN BED. NO DISTRESS NOTED. WILL CONT TO MONITOR. BLD SUGAR 130. GAVE AM MEDS. DENIED PAIN, DENIED FURTHER NEEDS. BED LOW, LOCKED, CALL LIGHT IN REACH.
--- NOTE | 2017-02-18 07:38 | NUR ---
ASSESSMENT COMPLETED.TELEMERTY SHOWS SR AT 88. O2 PRN. LEFT GROIN WITH DRSG DRY AND INTACT.PPP. RIGHT FA SL. DENIES ANY NEEDS AT PRESENT TIME. SR UP WITH CALL LIGHT IN REACH. WILL MONITOR
[2017-02-18 08:38] VITALS: BP 89/61
[2017-02-18 12:36] VITALS: BP 107/77
--- NOTE | 2017-02-18 12:39 | NUR ---
UP IN CHAIR EATING LUNCH. DENIES ANY NEEDS. CALL LIGHT IN REACH WITH SR UP
[2017-02-18 20:00] VITALS: BP 81/60
--- NOTE | 2017-02-18 20:00 | NUR ---
PT UP IN SCOOTER IN ROOM. ALERT/ORIENTED. NONLABORED RESPIRATIONS ON ROOM AIR. DISCUSSED PLAN OF CARE/HS MEDS. SEE ASSESSMENT, MONITOR AND CPOC.
--- NOTE | 2017-02-18 22:02 | NUR ---
HS MEDS GIVEN. PT NOW IN BED AND WATCHING TV.
--- NOTE | 2017-02-18 22:53 | NUR ---
FSBS 221. SLIDING SCALE AND LEVEMIR ADMINISTERED.
[2017-02-19 04:00] VITALS: BP 90/69
[2017-02-19 07:07] LABS: PROTIME 17.6 SECONDS (11.6-15.0)
[2017-02-19 07:17] LABS: INR 1.46 (0.85-1.17)
--- NOTE | 2017-02-19 07:26 | NUR ---
AM ROUNDS- PT UP IN SCOOTER, BRUSHING HER TEETH. PT DENIES ANY NEEDS AT THIS TIME. RT FA IV SL. NAD NOTED, WILL CONTINUE TO MONITOR.
[2017-02-19 08:00] VITALS: BP 106/80
--- NOTE | 2017-02-19 08:34 | NUR ---
AM MEDS GIVEN AT THIS TIME. PT UP TO BRIA, STATES SHE JUST PLACED ON A LIDOCAINE PATCH THIS AM, TO LEAVE THE OTHER PATCH BY THE WINDOW. DENIES ANY NEEDS AT THIS TIME. CALL LIGHT IN REACH, NAD NOTED, WILL CONTINUE TO MONITOR.
[2017-02-19] MEDS ORDERED: ASPIRIN81 MG PO (09:19)
--- NOTE | 2017-02-19 10:27 | NUR ---
Patient Name: SARAH ROBERTS Encounter No: [id number] : 1955 Primary Insurance: MEDICARE A & B Anticipated DC Date: 02-20-2017 Planned Disposition: Home DCP follow-up note: CM RECEIVED DISCHARGE ORDER, MET WITH PT IN ROOM TO DISCUSS DISCHARGE NEEDS AND PLANNING. CM DISCUSSED AVAILABILITY OF HOME HEALTH, REHAB SERVICES AND MEDICAL EQUIPMENT. PT DENIES DISCHARGE NEEDS. MEDICAID BUS TO TRANSPORT HOME AT DISCHARGE. IMPORTANT MESSAGE FROM MEDICARE PROVIDED AND EXPLAINED. CM CALLED [facility], , SOPKE TO KYRIE WHO ADVISED THAT SHE DOES NOT HAVE WHEELCHAIR ACCESSIBLE VAN AVAILABLE TODAY TO POINTER MACHINE OPERATOR PT; PT PLACED ON SCHEDULE FOR TOMORROW, 02-20-17. BEDSIDE NURSE NOTIFIED. PT NOT IN ROOM, CM LEFT MESSAGE ON WHITE BOARD TO NOTIFY PT. [facility] ([facility]ICA[facility]) BUS TO POINTER MACHINE OPERATOR PT TOMORROW MORNING, 02-20-17, FOR TRANSPORTATION HOME. Hernando Yan, CASE MANAGEMENT
--- NOTE | 2017-02-19 11:19 | NUR ---
NOTIFIED TAINA/RN WITH DR. DAVALOS VIA PHONE THAT PT WILL NOT DC UNTIL TOMORROW AM WHEN MEDICAID VAN IS AVAILABLE FOR TRANSPORTATION
--- NOTE | 2017-02-19 11:31 | NUR ---
BLOOD SUGAR OF 208, 4UNITS OF HUMALOG GIVEN AND 12UNITS OF HUMALOG MIX 50/50 ORDERED. PT DENIES ANY NEEDS AT THIS TIME. CALL LIGHT IN REACH, NAD NOTED, WILL CONTINUE TO MONITOR.
[2017-02-19 12:17] VITALS: BP 127/86
--- NOTE | 2017-02-19 16:36 | NUR ---
BLOOD SUGAR OF 197, 2UNITS OF HUMALOG GIVEN PER S/S. AND 12UNITS OF NPH 50/50 ORDERED. PT IN BED, DENIES ANY NEEDS AT THIS TIME. CALL LIGHT IN REACH, NAD NOTED, WILL CONTINUE TO MONITOR.
[2017-02-19 20:00] VITALS: BP 101/64
--- NOTE | 2017-02-19 20:00 | NUR ---
PT RETURNED TO ROOM. ASSESSMENT COMPLETE. VOICES NO CO AT TIME.
--- NOTE | 2017-02-19 23:51 | NUR ---
SLEEPING NO DISTRESS NOTED. SR UP X 2 CALL LIGHT WITH IN REACH. AT SIDE.
--- NOTE | 2017-02-19 23:52 | NUR ---
WATCHING TV. VOICES NO CO AT TIME.
[2017-02-20] VITALS: BP 110/62
--- NOTE | 2017-02-20 00:27 | NUR ---
SLEEPING NO DISTRESS NOTED. SR UP X 2. CALL LIGHT WITH IN REACH.
--- NOTE | 2017-02-20 03:39 | NUR ---
SLEEPING NO DISTRESS NOTED. SR UP X 2. CALL LIGHT WITHIN REACH.
[2017-02-20 04:00] VITALS: BP 99/68
--- NOTE | 2017-02-20 04:41 | NUR ---
PT AWAKEN TO GIVE MEDS. VOICES NO CO AT TIME.
[2017-02-20 06:05] LABS: INR 1.75 (0.85-1.17); PROTIME 20.4 SECONDS (11.6-15.0)
--- NOTE | 2017-02-20 07:12 | NUR ---
AM ROUNDS- PT UP TO ELECTRIC SCOOTER. GETTING DRESSED. PT DENIES ANY NEEDS AT THIS TIME. CALL LIGHT IN REACH, NAD NOTED, WILL CONTINUE TO MONITOR.
--- NOTE | 2017-02-20 08:50 | NUR ---
PROVIDED VERBAL AND WRITTEN DISCHARGE INSTRUCTIONS TO PT. PT VEBALIZED UNDERSTANDING REGARDING DISCHARGE TEACHING. D/C RT FA IV, TIP INTACT. REMOVED HEART MONITOR AND GAVE IT TO [employer] PERSONNEL COUNSELOR. CALLED ER TO BRING PT'S WALLET THAT WAS TAKEN TO SAFE. NAD NOTED, CALL LIGHT IN REACH, WILL CONTINUE TO MONITOR.
--- NOTE | 2017-02-20 10:50 | NUR ---
Patient Name: SARAH ROBERTS Encounter No: [id number] : 1955 Primary Insurance: MEDICARE A & B Anticipated DC Date: 02-20-2017 Planned Disposition: Home DCP follow-up note: CM CALLED [facility], , SOPKE TO KYRIE WHO ADVISED THAT A WHEELCHAIR ACCESSIBLE VAN IS AVAILABLE AND WILL IVORY CARVER PT "SOME TIME TODAY". BEDSIDE NURSE NOTIFIED. PT NOTIFIED WHO DENIED FURHTER NEEDS. Hernando Yan, CASE MANAGEMENT
--- NOTE | 2017-02-20 11:04 | NUR ---
KEYA FROM ER ADMISSIONS CAME TO RETURN PT VALUABLES THAT WERE IN THE SAFE. PT UP TO SIDE OF BED, DENIES ANY NEEDS AT THIS TIME. CALL LIGHT IN REACH, NAD NOTED, WILL CONTINUE TO MONITOR.
--- NOTE | 2017-02-20 11:14 | NUR ---
BLOOD SUGAR OF 308, 8UNITS OF HUMALOG GIVEN PER S/S. PT DENIES ANY NEEDS AT THIS TIME, STATED SHE IS GOING TO RIDE AROUND UNTIL LUNCH GETS HERE. NAD NOTED, WILL CONTNUE TO MONITOR.
[2017-02-20 13:08] VITALS: BP 93/54
--- NOTE | 2017-02-20 17:00 | NUR ---
PT LEFT UNIT VIA ELECTRIC SCOOTER, NAD NOTED.
== END 2017-02-20 17:00 | disposition home or self-care (01) | DRG 254 ==
LOC: D.M2 09:29
PROVIDERS: Specialist; ADMIT Internal Medicine Cardiovascular Disease
PROC: 047C3ZZ Dilation of Right Common Iliac Artery, Percutaneous Approach (ICD-10-PCS; 2017-02-16)
PROC: 047D3DZ Dilation of Left Common Iliac Artery with Intraluminal Device, Percutaneous Approach (ICD-10-PCS; principal; 2017-02-16 14:15)
DX: I70.222 Atherosclerosis of native arteries of extremities with rest pain, left leg (principal); E11.40 Type 2 diabetes mellitus with diabetic neuropathy, unspecified; Z79.4 Long term (current) use of insulin; Z86.73 Personal history of transient ischemic attack (TIA), and cerebral infarction without residual deficits; Z89.611 Acquired absence of right leg above knee; K21.9 Gastro-esophageal reflux disease without esophagitis; T45.515A Adverse effect of anticoagulants, initial encounter; I65.22 Occlusion and stenosis of left carotid artery

== ENCOUNTER → 2017-04-19 10:08 | Outpatient (CLI) | payer MEDICARE, MEDICAID ==
[2017-02-12 12:41] VITALS: BMI 26.4
[~2017-04-19 10:08] MED LIST: ASPIRIN81 MG PO; COUMADIN5 MG PO; CYCLOBENZAPRINE10 MG PO; FLUTICASONE PRO16 GM NASAL; HUMALOG MIX 50/53 ML SC; LEVEMIR100 U/M1 SC; LIDODERM 5 %1 PATCH TRANSDERM; LIPITOR20 MG PO; LISINOPRIL5 MG PO; LYRICA50 MG PO; METOPROLOL TART25 MG PO; MIRALAX17 GM PO; PROTONIX40 MG PO; PROVENTIL HFA6.7 GM INH; SYNTHROID137 MCG PO; TEMAZEPAM30 MG PO; ULTRAM50 MG PO
== END | disposition home or self-care (01) ==
LOC: D.CT 10:00
DX: I65.23 Occlusion and stenosis of bilateral carotid arteries (principal)

== ENCOUNTER 2017-07-06 15:01 | Inpatient (IN) | payer MEDICARE, MEDICAID ==
[~2017-07-06] VITALS: Ht 152.4 cm; Wt 64.7 kg
--- NOTE | ~2017-07-06 | HEMODYNAMI ---
PATIENT:SARAH ROBERTS MEDICAL RECORD: [id number] : 57 LOCATION:[address] ADMISSION DATE: 07/06/17 Generatedon:07/09/201711:27 Patient name: SARAH ROBERTS Patient #: [id number] SSN: : 1955 Date of study: 07/09/2017 Page: Of Hemodynamic Procedure Report Patient Data Patient Demographics Procedure consent was obtained First Name: SARAH Gender: Female Last Name: ARMANDO : 1955 [facility] Initial: JOHN Age: 62 year(s) Patient #: [id number] Race: Black Additional ID: [id number] Contact details [address]: [address] [place] [address] State: [place] City: [place] Zip code: [address] Admission Admission Data Admission Date: 07/06/2017 Admission Time: 15:01 Room #: 2126 Procedure Procedure Types Cath Procedure Peripheral Cath Diagnostic Procedure Abd/Extremity Extremities Bilat Lower Extremity Procedure Description Procedure Date Procedure Date: 07/09/2017 Procedure Start Time: 9:20 Procedure Staff Name Function Jamaal Steward RT Monitor Chance Laws MD Performing Physician Loretta Clark RT Scrub Sujey Meyer RN Nurse Procedure Data Cath Procedure Fluoroscopy Diagnostic fluoroscopy Total fluoroscopy Time: time: 14.1 min 14.1 min Diagnostic fluoroscopy Total fluoroscopy dose: 386 dose: 386 mGy mGy Entry Location Entry Primary Successful Side Size Upsize Upsize Entry Closure Succes sful Closure Location (Fr) 1 (Fr) 2 (Fr) Remarks Device Remarks Femoral Left 5 Fr Exoseal artery Femoral Left 6 Fr Exoseal artery Short Diagnostic catheters Device Type Used For End Catheter Placement Merit ULTRA BOLUS FLUSH Abdominal 5Fr 65CM catheter aortogram Procedure Medications Medication Administration Route Dosage Versed I.V. 1 mg Fentanyl I.V. 50 mcg Ancef (1Gm/50ml NS) 1 g Versed I.V. 1 mg Fentanyl I.V. 50 mcg Heparin Bolus I.V. 4000 units Versed I.V. 1 mg Fentanyl I.V. 50 mcg Nitroglycerin IC/IA I.A. 200 Versed I.V. 1 mg Fentanyl I.V. 50 mcg Heparin Bolus I.V. 2000 units Hemodynamics Rest Heart Rate: 97 (bpm) Pressure Samples Time Site Value (mmHg) Purpose Heart Use Rate(bpm) 9:30 AO 142/90(112) Snapshot 103 9:30 AO 122/83(101) Snapshot 103 Snapshots Pre Cath Intra NCS Post Cath Vital Signs Time Heart Resp SPO2 etCO2 NIBP (mmHg) Rhythm Pain Sedation Rate (ipm) (%) (mmHg) Status Level (bpm) 8:55:31 96 17 98 26.9 124/87(102) NSR 0 (11) 10(A) , No pain 8:59:41 95 19 99 25.4 128/89(121) NSR 0 (11) 10(A) , No pain 9:03:50 98 26 97 29.2 129/86(105) NSR 0 (11) 10(A) , No pain 9:08:00 99 22 96 24.7 130/94(115) NSR 0 (11) 10(A) , No pain 9:12:10 98 16 98 18.7 127/96(114) NSR 0 (11) 10(A) , No pain 9:16:20 98 18 100 24.7 133/103(116) NSR 0 (11) 10(A) , No pain 9:20:30 100 29 24.7 132/98(113) NSR 0 (11) 10(A) , No pain 9:24:40 100 26 23.2 134/98(114) NSR 0 (11) 10(A) , No pain 9:28:50 102 19 100 11.9 140/101(121) NSR 0 (11) 10(A) , No pain 9:33:00 101 17 96 0 140/94(123) NSR 0 (11) 10(A) , No pain 9:37:09 100 15 98 0 139/102(117) NSR 0 (11) 10(A) , No pain 9:41:18 101 18 97 0 143/96(125) NSR 0 (11) 10(A) , No pain 9:45:27 101 16 97 24.7 138/95(117) NSR 0 (11) 10(A) , No pain 9:49:39 100 19 97 0 135/101(115) NSR 0 (11) 10(A) , No pain 9:53:47 99 21 97 27.7 140/100(116) NSR 0 (11) 10(A) , No pain 9:57:59 100 19 96 27.7 141/107(121) NSR 0 (11) 10(A) , No pain 10:02:11 100 20 94 10.4 137/99(134) NSR 0 (11) 10(A) , No pain 10:06:21 99 21 95 12.7 138/98(134) NSR 0 (11) 10(A) , No pain 10:10:33 101 19 97 4.4 145/106(125) NSR 0 (11) 10(A) , No pain 10:14:45 102 17 97 24.7 151/94(123) NSR 0 (11) 10(A) , No pain 10:19:01 104 23 49 11.2 156/115(132) NSR 0 (11) 10(A) , No pain 10:23:19 105 15 99 23.2 156/111(125) NSR 0 (11) 10(A) , No pain 10:27:37 107 19 97 26.2 159/108(132) NSR 0 (11) 10(A) , No pain 10:31:57 107 16 97 29.9 153/113(133) NSR 0 (11) 10(A) , No pain 10:36:15 107 17 98 19.4 157/111(135) NSR 0 (11) 10(A) , No pain 10:40:33 105 18 96 2.2 158/106(150) NSR 0 (11) 10(A) , No pain 10:44:49 106 21 96 22.4 153/107(120) NSR 0 (11) 10(A) , No pain 10:49:07 107 21 99 24.7 144/109(126) NSR 0 (11) 10(A) , No pain 10:53:17 105 20 96 28.4 149/101(132) NSR 0 (11) 10(A) , No pain 10:57:33 113 28 98 14.9 161/116(138) NSR 0 (11) 10(A) , No pain 11:01:55 110 19 100 11.9 164/117(138) NSR 0 (11) 10(A) , No pain 11:06:05 107 18 99 2.9 147/106(131) NSR 0 (11) 10(A) , No pain 11:10:21 106 18 99 24.6 154/105(131) NSR 0 (11) 10(A) , No pain 11:14:39 110 21 100 11.9 161/114(137) NSR 0 (11) 10(A) , No pain Medications Time Medication Route Dose Verified Delivered Reason Notes Effecti veness by by 9:24:53 Versed I.V. 1 mg Chance Sujey for Eusebia Meyer RN sedation 9:25:05 Fentanyl I.V. 50 mcg Chance Sujey for Eusebia Meyer RN sedation 9:28:52 Ancef I.V.P. 1 g Chance Sujey (1Gm/50ml NS) Eusebia Meyer RN, MD 9:52:29 Versed I.V. 1 mg Chance Sujey for Eusebia Meyer RN sedation 9:52:39 Fentanyl I.V. 50 mcg Chance Sujey for Eusebia Meyer RN sedation 9:58:02 Heparin Bolus I.V. 4000 Chance Sujey Per units Eusebia Meyer RN physician 10:12:15 Versed I.V. 1 mg Chance Sujey for Eusebia Meyer RN sedation 10:12:23 Fentanyl I.V. 50 mcg Chance Alonzoody for Eusebia Meyer RN sedation 10:43:41 Nitroglycerin I.A. 200MCG Chance Fletcher IC/IA Eusebia Laws MD, MD 10:46:04 Versed I.V. 1 mg Chance Sujey for Eusebia Meyer RN sedation 10:46:15 Fentanyl I.V. 50 mcg Chance Sujey for Eusebia Meyer RN sedation 10:53:28 Heparin Bolus I.V. 2000 Chance Sujey Per units Eusebia Meyer RN physician Procedure Log Time Note 8:41:20 Jamaal Steward RT (R) (CV) sent for patient. Start room use. 8:54:03 Time tracking: Regular hours 8:54:10 Plan of Care:Hemodynamics will remain stable., Cardiac rhythm will remain stable., Comfort level will be maintained., Respiratory function will remain adequate., Patient/ family verbilizes understanding of procedure., Procedure tolerated without complication., Recovers from procedure without complications.. 8:54:19 Patient received from [employer] to IR Alert and oriented. Tansferred to table in Supine position. 8:54:25 Correct patient and procedure confirmed by team. 8:54:27 Signed procedure consent form obtained from patient. 8:54:28 Vital chart was started 8:54:28 ECG and BP/O2 sat monitors applied to patient. 8:54:29 Baseline sample Acquired. 8:54:32 - 8:54:32 Full Disclosure recording started 8:54:35 H&P Date Dictated: 07/09/2017 Within 30 days and on chart.. 8:54:36 Pre-op teaching completed and patient verbalized understanding. 8:54:36 Pre-procedure instructions explained to patient. 8:54:38 Family unavailable. 8:54:41 Patient NPO since Midnight. 8:54:45 Is the patient allergic to Iodine/contrast media? No. 8:54:48 Was the patient premedicated? No 8:54:52 Is patient on blood thinner?No 8:54:53 Patient diabetic? Yes. 8:54:55 If diabetic: On Metformin? Yes 8:54:59 If on Metformin: Last Dose? 07/08/2017 8:55:01 - 8:55:02 ----Pre-sedation anethsthesia assessment.---- 8:55:08 Previous problem with sedation/anesthesia? No ? 8:55:11 Snore? Yes 8:55:12 Sleep apnea? Yes 8:55:14 Deviated septum? No 8:55:15 Opens mouth fully? Yes 8:55:16 Sticks out tongue? Yes 8:55:17 Airway obstruction? No ? 8:55:19 Dentures? No ? 8:55:25 Pre procedure: left dorsailis pedis pulse 0-Absent 8:55:32 Pre procedure: left posterior tibial pulse Doppler 8:55:46 PT HAS AKA ON RIGHT 8:55:51 Use device set IR Diagnostic 8:55:53 ACIST Hand Control (30545) opened to sterile field. 8:55:53 ACIST Syringe (85751) opened to sterile field. 8:55:54 ACIST Manifold (91850) opened to sterile field. 8:55:55 Bag Decanter (2002S) opened to sterile field. 8:55:58 Sterile Angiographic Pack opened to sterile field. 8:56:14 Patient pain scale 0/10 NO PAIN. 8:56:24 IV patent on arrival in left forearm with 0.9% NaCl at [facility]. 8:56:25 Sharps counted by scrub and verified by R.N. 8:56:26 Alarms reviewed by R. N. 8:56:29 Left groin area was prepped with chlora-prep and draped in sterile fashion 9:18:52 Physician arrived 9:18:53 --------ALL STOP TIME OUT------ 9:18:54 Final Timeout: patient, procedure, and site verified with staff and physician. All members of the team are in agreement. 9:18:56 Left groin site verified by team. 9:19:01 Sedation plan: IV Moderate Sedation Medication:Versed, Fentanyl 9:20:27 Procedure started. 9:20:31 Local anesthetic to left femerol artery with Lidocaine 1% by Chance Laws MD.INITIAL ACCESS ONLY 9:20:47 A 5 Fr sheath was inserted into the Left Femoral artery 9:20:52 Cook e-voloSON 145cm guide wire opened to sterile field. 9:20:53 Terumo 5Fr Jackson Sheath opened to sterile field. 9:20:53 Micropuncture VSI 4FR kit opened to sterile field. 9:20:54 TUBING, CONTRAST INJCTN HI PRES opened to sterile field. 9:24:53 Versed 1 mg I.V. was administered by Sujey Meyer RN; for sedation; 9:25:05 Fentanyl 50 mcg I.V. was administered by Sujey Meyer RN; for sedation ; 9:28:52 Ancef (1Gm/50ml NS) 1 g I.V.P. was administered by Sujey Meyer RN; ; 9:29:01 A Electro-LuminX ULTRA BOLUS FLUSH 5Fr 65CM catheter was advanced over the wire and used for Abdominal aortogram. 9:29:19 Zero performed for pressure channel P1 9:35:32 BasixTOUCH Inflation Syringe opened to sterile field. 9:36:09 Inflation number: 1 A CordCARDFREE Powerflex Pro 8.0 x 40 x 80cm balloon was prepped and advanced across the Undefined1, then inflated 9:49:10 Terumo 6Fr Jackson Sheath opened to sterile field. 9:49:34 A 6 Fr Short sheath was inserted into the Left Femoral artery 9:52:03 Micropuncture VSI 4FR kit opened to sterile field. 9:52:29 Versed 1 mg I.V. was administered by Sujey Meyer RN; for sedation; 9:52:39 Fentanyl 50 mcg I.V. was administered by Sujey Meyer RN; for sedation ; 9:53:57 Kiana Sci Choice PT Extra Support J 300cm .014 gu opened to sterile field. 9:58:02 Heparin Bolus 4000 units I.V. was administered by Sujey Meyer RN; Per physician; 9:58:24 CXI Catheter 90cm opened to sterile field. 9:58:[address] .035 145 glide wire opened to sterile field. 10:12:15 Versed 1 mg I.V. was administered by Sujey Meyer RN; for sedation; 10:12:23 Fentanyl 50 mcg I.V. was administered by Sujey Meyer RN; for sedation ; 10:15:33 Copilot Bleedback Control Valve opened to sterile field. 10:18:42 Inflation number: 2 A Saber 2 x 200 x150 balloon was prepped and advanced across the Undefined1, then inflated to 10:35:39 Inflation number: 3 A Saber 2.5 X 200 X 150 balloon was prepped and advanced across the Undefined1, then inflated 10:43:41 Nitroglycerin IC/IA 200MCG I.A. was administered by Chance Laws MD; ; 10:46:04 Versed 1 mg I.V. was administered by Sujey Meyer RN; for sedation; 10:46:15 Fentanyl 50 mcg I.V. was administered by Sujey Meyer RN; for sedation ; 10:53:28 Heparin Bolus 2000 units I.V. was administered by Sujey Meyer RN; Per physician; 11:06:45 EXOSEAL 6Fr (EX600) opened to sterile field. 11:07:58 Sheath removed intact; hemostasis achieved with Exoseal to the Left Femoral artery. 11:08:05 Sheath removed intact; hemostasis achieved with Exoseal to the Left Femoral artery. 11:08:11 EXOSEAL 5Fr (EX500) opened to sterile field. 11:08:30 Procedure ended.(Physican Out) 11:10:01 Fluoroscopy time 14.10 minutes. 11:10:08 Fluoroscopy dose: 386 mGy 11:10:08 Flurop Dose total: 386 11:16:24 Sharps counted by scrub and verified by R.N. 11:16:25 Insertion/operative site no bleeding no hematoma. 11:16:30 Post-op/insertion site Left Femoral artery dressed using a 4 x 4 and Tegaderm. 11:16:35 Post left femerol artery:stable 11:16:54 Post Procedure Pulses reassessed and unchanged 11:17:02 Post procedure rhythm: unchanged. 11:17:05 Post procedure instruction explained to patient.Patient verbalizes understanding. 11:17:07 Procedure and supply charges have been captured, reviewed, submitted an d are correct. 11:17:26 Full Disclosure recording stopped 11:27:18 Report given to [facility]. 11:27:21 Patient transfered to [facility] with Bed. Intervention Summary Intervention Notes Time ActionType Lesion and Equipment Action# Pressure Duration Attributes Used 9:36:09 Inflate Undefined1 Cordis 1 0 00:00 balloon Powerflex Pro 8.0 x 40 x 80cm balloon 10:18:42 Inflate Undefined1 Saber 2 x 2 0 00:00 balloon 200 x150 balloon 10:35:39 Inflate Undefined1 Saber 2.5 3 0 00:00 balloon X 200 X 150 balloon Device Usage Item Name Manufacture Quantity Catalog Number Hospital Part Current Min imal Lot# / Charge Number Stock Stock Serial# Code ACIST Syringe Acist 1 14295 [id number] [id number] [id number] 20 (86011) Medical Systems Inc ACIST Hand Acist 1 44314 464465 825557 916322 5 Control Medical (16225) Systems Inc ACIST Acist 1 30011 420723 015985 138471 5 Manifold Medical (08320) Systems Inc Bag Decanter Microtek 1 2001S 322383 88679 763369 5 (2001S) Medical Inc. Sterile Cardinal 1 [id number] 097576 588305 5 Angiographic Health Pack Cook [facility] 1 A48815 860007 151092 5 [id number] 145cm guide wire Micropuncture VSI VASCULAR 2 7266V 051628 652673 5 VSI 4FR kit SOLUTIONS SHEATH 5FR Terumo 1 XPE329 685419 259207 246597 40 Jackson (HWI124) TUBING, Merit 1 [id number] 077978 778678 264826 5 CONTRAST Medical INJCTN HI PRES Merit ULTRA Merit 1 [id number] 088353 135686 5 BOLUS FLUSH Medical 5Fr 65CM catheter BasixTOUCH Merit 1 XS3388 858173 727855 025879 5 Inflation Medical Syringe Cordis Cardinal 1 [id number] 683285 010583 645630 5 Powerflex Pro Health 8.0 x 40 x 80cm balloon SHEATH 6FR Terumo 1 LFG014 482174 287672 523424 40 Jackson (JDO016) Kiana Sci Kiana 1 [id number] 400011 229966 299792 5 [id number] Choice PT Scientific Extra Support J 300cm .014 gu Cook [email or web address] Medical 1 M28994 917047 352914 5 4573629 ROADRUNNER .035 145 glide wire CXI Catheter Sanovation 1 Y51530 608931 627650 956390 5 3202283 90cm Copilot Khan 1 6363894 086427 232457 828863 5 Bleedback Vascular Control Valve Saber 2 x 200 Cardinal 1 [id number] 849941 246427 5 x150 balloon Health Saber 2.5 X Cardinal 1 [id number] 038453 209400 5 200 X 150 Health balloon EXOSEAL 6Fr Cardinal 1 EX600 292926 523247 715524 10 [id number] (EX600) Health EXOSEAL 5Fr Cardinal 1 EX500 972362 262029 997779 10 [id number] (EX500) Health Signature Audit [place] Stage Time Signature Unsigned Intra-Procedure 07/09/2017 Jamaal 11:27:37 AM Bin RT (R) (CV) Signatures Monitor : Jamaal Signature : Bin RT Date : Time : [place] [id number] [place] [id number]
--- NOTE | 2017-07-06 15:19 | NUR ---
RECEIVED PT TO ROOM 2125 VIA ELECTRIC WHEELCHAIR. PT C/O OF PAIN TO LT FOOT, COULD NOT HEAR A PEDAL PULSE WITH DOPPLER. WAS ONLY ABLE TO HEAR DORSALIS PEDIS PULSE. FOOT COLD TO TOUCH. 20G STARTED TO RT FA X1 STICK. PT TOLERATED PROCEDURE WELL. WILL ASSESS PT AND START PLAN OF CARE.
--- NOTE | 2017-07-06 15:46 | HP ---
PATIENT: [facility]AAH ROBERTS [facility] MEDICAL RECORD: [id number] ACCOUNT: [id number] LOCATION:[address] : 57 ADMISSION DATE: 07/06/17 HISTORY AND PHYSICAL EXAMINATION SARAH Gallardo (62yo, F) ID# [id number]. Date/Time07/06/2017 01:30YYFZN08 1955[facility] Dept.NPP_[facility] ClinicProviderEDHENRIK DAVALOS MDInsuranceMed Primary: [place] ([place]) Insurance # : [id number] Employer Name : RETIRED Med Secondary: [place]) Insurance # : [id number] Employer Name : RETIRED Prescription: INFRX - Member is eligible. Prescription: [employer] [employer] - Member is eligible. Chief Complaint Followup: Limb pain at rest due to atherosclerosis of washoe artery Followup: Peripheral arterial occlusive disease PT REQUESTS APPT BC SHE IS HAVING SEVERE PAIN LLE, AND HER DIABETIC DR TOLD HER TO SEE DR DAVALOS Patient's Care Team Primary Care Provider: STAN RAMIREZ BOTTLE CAPPER: [address], [place] [address], , Vitals BP:112/74 07/06/2017 01:46 pmHR:132 07/06/2017 01:46 pmHt:5 ft 07/06/2017 01:40 pmWt:134 lbs 07/06/2017 01:46 pmNotes:STARTING LAST SUNDAY HAS SEVERE PAIN FOOT AND LEG LLE. RED AND COLD.07/06/2017 01:47 pmBMI:26.2 07/06/2017 01:46 pmAllergies Reviewed Allergies NKDASome allergies listed in Documents: #[id number], #[id number] could not be added to this patient's chart. Please review these documents and add these allergies to the patient's chart manually as needed.Medications Reviewed Medications ACETAMINOPHEN/CODEINE 300-30 MG TABS01/03/17 filledUPRE[facility] MEDICARE FORMULARYalbuterol sulfate HFA 90 mcg/actuation aerosol inhaler Inhale 2 puff(s) every 4 hours by inhalation route.01/30/17 enteredKathy WilsonAMOXICILLIN 500 MG CAPS10/16/16 filledUPREHS MEDICARE FORMULARYatorvastatin 20 mg tablet Take 1 tablet(s) every day by oral route.01/30/17 [facility] WilsonATORVASTATIN CALCIUM 20 MG TABS05/04/17 filledUPRE[facility] MEDICARE FORMULARYATORVASTATIN CALCIUM 40 MG TABS09/07/16 filledUP[facility] MEDICARE FORMULARYCEPHALEXIN 500 MG CAPS04/03/17 filledUP[facility] MEDICARE FORMULARYCoumadin 5 mg tablet Take 1 tablet(s) every day by oral route.01/30/17 [facility] Wilsoncyclobenzaprine 10 mg tablet Take 1 tablet(s) 3 times a day by oral route.01/30/17 [facility]Formerly [facility] SystemCYCLOBENZAPRINE HCL 10 MG TABS108/08/16 filledUPBER[facility] MEDICARE FORMULARYFlonase Allergy Relief 50 mcg/actuation nasal spray,suspension [place] 1 spray(s) every day by intranasal route.01/30/17 enteredFormerly [facility] SystemGABAPENTIN 600 MG TABS109/01/16 filledUPREHS MEDICARE FORMULARYHUMALOG KWIKPEN 100 UNIT/ML SOPN108/08/16 filledUPRE[facility] MEDICARE FORMULARYHumaLOG KwikPen 100 unit/mL subcutaneous Inject 24 unit(s) 3 times a day by subcutaneous route.01/30/17 [facility] WilsonHYDROCODONE/ACETAMINOPHEN 5-325 PFPEAB44/23/17 filledUPRE[facility] MEDICARE FORMULARYHYDROCODONE/ACETAMINOPHEN 7.5-325 MG TABS04/03/17 filledUP[facility] MEDICARE FORMULARYLevemir FlexTouch 100 unit/mL (3 mL) subcutaneous insulin pen Inject 54 unit(s) by subcutaneous route at bedtime.01/30/17 [facility] HISTORY AND PHYSICAL [id number] SARAH ROBERTS WilsonLEVEMIR FLEXTOUCH 100 UNIT/ML SOPN04/21/16 filledUPRE[facility] MEDICARE FORMULARYLEVOFLOXACIN 500 MG TABS01/03/17 filledUP[facility] MEDICARE FORMULARYlevothyroxine 137 mcg capsule Take 1 capsule(s) every day by oral route.01/30/17 enteredFormerly [facility] SystemLEVOTHYROXINE SODIUM 137 MCG TABS1 filledUPREHS MEDICARE FORMULARYLidoderm 5 % topical patch APPLY 1 PATCH BY TRANSDERMAL ROUTE ONCE DAILY (DECEMBER WEAR UP TO 12HOURS.)01/30/17 [facility] Wilsonlisinopril 5 mg tablet Take 1 tablet(s) every day by oral route.01/30/17 [facility] WilsonLISINOPRIL 5 MG TABS108/08/16 filledUP[facility] MEDICARE [facility]ARYLYRICA 50 MG CAPS06/08/17 filledUP[facility] MEDICARE FORMULARYLyrica 50 mg capsule Take 1 capsule(s) 3 times a day by oral route.01/30/17 [facility] tartrate 25 mg tablet Take 2 tablet(s) twice a day by oral route.01/30/17 [facility] WilsonMiralax 17 gram/dose oral powder Take by oral route.01/30/17 [facility] Hospitalpantoprazole 40 mg tablet,delayed release Take 1 tablet(s) twice a day by oral route.01/30/17 [facility] HospitalPOTASSIUM CHLORIDE ER 10 MEQ TBCR01/03/17 filledUP[facility] MEDICARE FORMULARYREPATHA SURECLICK 140 MG/ML SOAJ108/22/16 filled[facility] FORMULARYRestoril 30 mg capsule Take 1 capsule(s) every day by oral route as needed.01/30/17 [facility] WilsonROSUVASTATIN CALCIUM 10 MG TABS03/29/17 filledUP[facility] MEDIC[facility] FORMULARYROSUVASTATIN CALCIUM 20 MG TABS12/03/16 filledUP[facility]ICARE FORMULARYTEMAZEPAM 30 MG CAPS06/14/17 filledUP[facility] MEDICARE FORMULARYtraMADol 50 mg tablet Take 1 tablet(s) every 6 hours by oral route.01/30/17 [facility] WilsonTRAMADOL HCL 50 MG TABS05/04/17 filledUPRE[facility] MEDICARE FORMULARYTRESIBA FLEXTOUCH 200 UNIT/ML SOPN108/08/16 filledUP[facility] MEDICARE FORMULARYVENTOLIN HFA 108 (90 Base) MCG/JBDVMUC75/15/17 filledUP[facility] MEDICARE FORMULARYWARFARIN SODIUM 1 MG TABS01/13/17 filledUP[facility] MEDICARE FORMULARYWARFARIN SODIUM 5 MG TABS01/13/17 filledUP[facility] oxygen 2L as directed Vaccines Reviewed Vaccines Some vaccines listed in Documents: #[id number], #[id number] could not be added to this patient's chart. Please review these documents and add these vaccines to the patient's chart manually as needed. Problems Reviewed Problems Cerebrovascular disease - Onset: 04/19/2017 Chronic cerebrovascular accident - Onset: 02/01/2017 Diabetes mellitus - Onset: 02/01/2017 Limb pain at rest due to atherosclerosis of washoe artery - Onset: 02/01/2017 Peripheral arterial occlusive disease - Onset: 01/30/2017 Family History Discussed Family History Father- Heart disease ( age: 57)Social History Discussed Social History Cardiology Family history of heart disease?: N Smoking Status: Unknown if ever smoked High Cholesterol: Y HISTORY AND PHYSICAL [id number] SARAH ROBERTS High blood pressure: Y Exercise level: None Diabetes: Y Surgical History Reviewed Surgical History Amputation - 08/06/2015 - R" leg Removal of thyroid - 08/06/2009 stents in 2017 stomach 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 HPI Peripheral Vascular Disease Reported by patient. Location: calf; foot Quality: burning; aching Severity: severe Aggravating Factors: walking; sleeping Associated Symptoms: weakness; skin discoloration atherosclerosis of the lower extremities with rest pain ROS Patient reports no incontinence, no difficulty urinating, no hematuria, and no increased frequency; stent right ureter. She reports no muscle aches, no muscle weakness, no arthralgias/joint pain, no back pain, and no swelling in the extremities; A-K amputation Right leg Rest pain left lower extremity . She reports no fever, no night sweats, no significant weight gain, no significant weight loss, and no exercise intolerance. She reports no dry eyes , no irritation, and no vision change. She reports no difficulty hearing and no ear pain. She reports no frequent nosebleeds and no nose/sinus problems. She reports no sore throat, no bleeding gums, no snoring, no dry mouth, no mouth ulcers, no oral abnor m alities, and no teeth problems. She reports no jugular vein distension and no swollen glands. She reports no chest pain, no arm pain on exertion, no shortness of breath when walking, no shortness of breath when lying down, no palpitations, and no known he a rt murmur. She reports no cough, no wheezing, no shortness of breath, and no coughing up blood. She reports no abdominal pain, no vomiting, normal appetite, no diarrhea, not vomiting blood, no nausea, and no constipation. She reports no abnormal mole, no j aundice, and no rashes. She reports no loss of consciousness, no HISTORY AND PHYSICAL [id number] SARAH ROBERTS weakness, no numbness, no seizures, no dizziness, and no headaches. She reports no depression, no sleep disturbances, feeling safe in relationship, and no alcohol abuse. She reports no fatig ue. She reports no swollen glands and no bruising. She reports no runny nose, no sinus pressure, no itching, no hives, and no frequent sneezing. ROS as noted in the HPI Physical Exam Patient is a 62-year-old female. Constitutional: General Appearance well nourished and developed and healthy-appearing; sitting in a motorized wheelchair. Level of Distress chronically ill. Ambulation ambulating normally and in wheelchair. Cardiovascular: Apical Impulse not displaced or no thrill. Heart Auscultation normal s1 and s2; no murmurs, rubs, or gallops; and RRR. Arterial Pulses no abdominal aorta bruits, femoral bruits, or popliteal bruits; popliteal not palpable (left) and dorsalis pedis not palpable (left); and 2+ bilateral, carotid 2+ bilateral, and femoral 2+ bilateral; high right AK amputation. Edema no edema or varicosities. Lungs: Repiratory Effort no dyspnea. Percussion no hyperresonance or dullness or flatness. Auscultation no wheezing, rhonchi, or rales / crackles and breathing sounds normal, good air movement, and CTA except as noted. Abdomen: Bowl Sounds normal. Inspection and Palpation no tenderness, guarding, masses, or rebound tenderness and soft and non-distended. Liver non-tender and no hepatomegaly. Spleen non-tender and no splenomegaly. Hernia none palpable. Musculoskeletal System: Gait And Stance right AK amputation. Digits and Nails normal nails and no cyanosis. Joints, Bones, and Muscles limited ROM and abnormal strength; left foot is cold and ischemic. Neurologic: Cranial Nerves grossly intact. Reflexes DTRs 2+ bilaterally throughout. Sensation abnormal (neuropathy). Lymph Nodes: Lymph Nodes no cervical LAD, supraclavicular LAD, axillary LAD, or inguinal LAD. Eyes: Lids and Conjunctivae no discharge or pallor and non-injected. Pupils PERRLA. Cornea grossly intact. EOM EOMI. Lens clear. Sclera non-icteric. Neck: Neck no masses or enlarged lymph nodes and supple, trachea midline, and carotid bruits (bilateral). Thyroid no enlargement or nodules and non-tender. Skin: Inspection and Palpation no rash, lesions, ulcers, jaundice, or abnormal nevi. Assessment / Plan atherosclerosis with rest left lower extremity 1. Limb pain at rest due to atherosclerosis of washoe artery M79.605: Pain in left leg 2. Peripheral arterial occlusive disease I73.9: Peripheral vascular disease, unspecified PERIPHERAL ARTERIAL DISEASE OF THE LEG: CARE INSTRUCTIONS Discussion Notes HISTORY AND PHYSICAL [id number] SARAH ROBERTS admission to the hospital Hold Coumadin Re-intervention left iliac BRITTON DAVALOS MD at 1546 CC: [id number] DICTATION DATE: 07/06/17 1330 AUDIO VISUAL COORDINATOR: DM 07/06/17 1529 ADM IN [facility] [address] [place] [address]
[2017-07-06] MEDS ORDERED: COUMADIN5 MG PO (15:54)
[2017-07-06] MEDS ORDERED: NEURONTIN600 MG PO (15:55)
[2017-07-06] MEDS ORDERED: TEMAZEPAM30 MG PO (15:55)
[2017-07-06 16:22] VITALS: BP 106/68
[2017-07-06 17:01] VITALS: BMI 26.2
--- NOTE | 2017-07-06 18:14 | NUR ---
EKG DONE AT THIS TIME. SHOWING SINUS TACH 126. PT IN IN BED, TALKING ON THE PHONE, DENIES ANY NEEDS AT THIS TIME. CALL LIGHT IN REACH, NAD NOTED.
--- NOTE | 2017-07-06 20:15 | NUR ---
C/O PAIN IN LEFT FOOT. FOOT IS COLD AND TENDER TO TOUCH.
[2017-07-06 20:59] VITALS: BP 119/77
--- NOTE | 2017-07-07 03:27 | NUR ---
PT RESTING QUIETLY, EYES CLOSED. RESP EVEN, UNLABORED. NO DISTRESS NOTED. CONTINUE RESIDENT ATHLETIC TRAINER'S PLAN OF CARE.
--- NOTE | 2017-07-07 03:43 | NUR ---
PATIENT IS RESTING COMFORTABLY. NO PAIN REPORTED AT THIS TIME.BED LOW, CALL LIGHT IN REACH.
[2017-07-07 04:00] VITALS: BP 114/71
[2017-07-07 05:16] LABS: HEMATOCRIT 39.1 % (36.0-48.0); HEMOGLOBIN 12.2 g/dL (12-16); MCH 23.4 pg (26.0-34.0); MCHC 31.2 g/dL (31.0-37.0); MEAN PLATELET VOLUME 10.1 fL (7.4-10.4); RBC 5.21 10x6/uL (4.00-5.40); RDW 15.2 % (11.5-14.5); WBC 7.8 10x3/uL (4.8-10.8)
[2017-07-07 05:28] LABS: INR 0.98 (0.85-1.17); PROTIME 12.6 SECONDS (11.6-15.0)
[2017-07-07 05:39] LABS: ALBUMIN 2.8 g/dL (3.4-5.0); ALKALINE PHOSPHATASE 68 U/L (46-116); ALT (SGPT) 16 U/L (10-68); BILIRUBIN - TOTAL 0.13 mg/dL (0.2-1.3); CALC OSMOLALITY 282 mosm/kg (275-300); CALCIUM 8.7 mg/dL (8.5-10.1); CARBON DIOXIDE 28.3 mmol/L (21.0-32.0); CHLORIDE - SERUM 104 mmol/L (98-107); CREATININE - SERUM 0.7 mg/dL (0.6-1.3); GLUCOSE 166 mg/dL (74-106); POTASSIUM - SERUM 3.8 mmol/L (3.5-5.1); PROTEIN - SERUM 6.8 g/dL (6.4-8.2); SODIUM 140 mmol/L (136-145); UREA NITROGEN 12 mg/dL (7-18); eGFR NON AFRICAN AMERICAN 90 mL/min (90-120)
--- NOTE | 2017-07-07 07:25 | NUR ---
ASSESSMENT COMPLETED. NO TELEMERTY. RIGHT FA IV WITH NS AT 30AND MORPHINE 0.5MG EVERY 10MIN WITH A 12MG 4 HOUR LOCKOUT. ALERT AND ORIENTED. LEFT LOWER LEG COLD TO TOUCH. SR UP WITH CALL LIGHT IN REACH. WILL MONITOR
--- NOTE | 2017-07-07 07:30 | NUR ---
resting quietly resp unlabored nad noted
[2017-07-07 07:54] VITALS: BP 125/78
[2017-07-07 12:30] VITALS: BP 120/68
[2017-07-07 15:49] VITALS: BP 137/84
--- NOTE | 2017-07-07 17:37 | NUR ---
LYING QUIETLY WITH NO COMPLAINTS. WILL MONITOR
--- NOTE | 2017-07-07 19:39 | NUR ---
RESUMED CARE OF PT, LYING IN BED RESPIRATIONS EVEN AND UNLABORED ON ROOM AIR. RIGHT FOREARM INFUSING NS @ 30 AND MORPHINE PIPE RACKER. NO NEEDS AT THIS TIME, CALL LIGHT IN REACH. WILL CONTINUE TO MONITOR. SEE NURSE ASSESSMENT.
[2017-07-07 21:24] VITALS: BP 127/82
[2017-07-08] VITALS: BP 109/76
--- NOTE | 2017-07-08 00:45 | NUR ---
UP ON SIDE OF BED, VERY DISORIENTED. ABLE TO REORIENT AFTER SEVERAL MINUTES OF EXPLAINING WHERE SHE WAS AND WHY SHE WAS HERE. PT WAS ADAMENT THAT SHE WAS AT HER FACILITY IN [place]. WILL MONITOR CLOSELY. CALL LIGHT IN REACH.
--- NOTE | 2017-07-08 03:13 | NUR ---
LYING IN BED WITH EYES CLOSED, CALL LIGHT IN REACH. WILL CONTINUE TO MONITOR.
[2017-07-08 04:00] VITALS: BP 119/70
[2017-07-08 04:14] LABS: INR 0.97 (0.85-1.17); PROTIME 12.5 SECONDS (11.6-15.0)
--- NOTE | 2017-07-08 06:38 | NUR ---
NO CHANGES FROM PREVIOUS ASSESSMENT, CALL LIGHT IN REACH. WILL CONTINUE TO MONITOR.
--- NOTE | 2017-07-08 07:30 | NUR ---
RESTING QUIETLY EYES CLOSED RESP UNLABORED NAD NOTED
[2017-07-08 09:34] VITALS: BP 102/83
--- NOTE | 2017-07-08 09:34 | NUR ---
ASSESSMENT COMPLETED. NO TELEMERTY. RIGHT FA WITH NS AT 30 AND BRAND STRATEGY MANAGER MORPHINE PUM AT 1/10/4HR LOCOUT. RIGHT BKA. LEFT LOWER LEG ISCEMIA, COOD TO TOUCH. DENIES ANY NEEDS. CALL LIGHT IN REACH WITH SR UP
[2017-07-08 12:16] VITALS: BP 134/86
[2017-07-08 13:02] LABS: BASOPHILS 0.2 % (0-2); HEMATOCRIT 40.4 % (36.0-48.0); HEMOGLOBIN 12.7 g/dL (12-16); IMMATURE GRANULOCYTES 0.2 % (0-5); LYMPHOCYTES 38.4 % (15-50); MCH 23.3 pg (26.0-34.0); MCHC 31.4 g/dL (31.0-37.0); MCV 74.3 fL (80.0-100.0); MEAN PLATELET VOLUME 9.5 fL (7.4-10.4); NEUTROPHILS 55.2 % (40-80); PLATELET COUNT 286 10x3/uL (130-400); RBC 5.44 10x6/uL (4.00-5.40); RDW 14.9 % (11.5-14.5); WBC 9.6 10x3/uL (4.8-10.8)
[2017-07-08 13:12] LABS: CALC OSMOLALITY 285 mosm/kg (275-300); CALCIUM 9.5 mg/dL (8.5-10.1); CARBON DIOXIDE 27.1 mmol/L (21.0-32.0); CHLORIDE - SERUM 103 mmol/L (98-107); CREATININE - SERUM 0.8 mg/dL (0.6-1.3); SODIUM 138 mmol/L (136-145); UREA NITROGEN 12 mg/dL (7-18); eGFR NON AFRICAN AMERICAN 77 mL/min (90-120)
[2017-07-08 13:13] LABS: GLUCOSE 276 mg/dL (74-106)
[2017-07-08 13:14] LABS: APTT 23.6 SECONDS (22.8-39.4); INR 0.96 (0.85-1.17); PROTIME 12.4 SECONDS (11.6-15.0)
[2017-07-08 16:12] VITALS: BP 124/72
--- NOTE | 2017-07-08 17:06 | NUR ---
LYING QUIETLY. DENIES ANY NEEDS CALL LIGHT IN REACH WITH SR UP. TELEMETRY NURSE MORPHINE IN USE
--- NOTE | 2017-07-08 19:30 | NUR ---
RESUMED CARE OF PT, LYING IN BED RESPIRATIONS EVEN AND UNLABORED ON ROOM AIR. RIGHT FOREARM INFUSING NS @ 30 AND DOBUTAMINE @ 5.3. PLAN OF CARE DISCUSSED. WILL CONTINUE TO MONITOR. SEE NURSE ASSESSMENT. NPO AT MIDNIGHT.
--- NOTE | 2017-07-08 19:37 | NUR ---
RESUMED CARE OF PT, LYING IN BED RESPIRATIONS EVEN AND UNLABORED ROOM AIR. RIGHT FOREARM INFUSING NS @ 30 AND MORPHINE FACING CUTTING MACHINE OPERATOR. CALL LIGHT IN REACH. PLAN OF CARE DISCUSSED. WILL CONTINUE TO MONITOR. SEE NURSE ASSESSMENT.
[2017-07-08 21:46] VITALS: BP 131/84
--- NOTE | 2017-07-08 23:33 | NUR ---
LYING IN BED WITH EYES CLOSED, CALL LIGHT IN REACH. WILL CONTINUE TO MONITOR.
[2017-07-09] VITALS (8 sets, daily range): BP systolic 116–146; BP diastolic 74–99; Ht 152.4 cm; Wt 64.7 kg
--- NOTE | 2017-07-09 06:04 | NUR ---
BED BATH AND LINENS CHANGED, CALL LIGHT IN REACH. WILL CONTINUE TO MONITOR.
[2017-07-09 06:54] LABS: INR 0.96 (0.85-1.17); PROTIME 12.4 SECONDS (11.6-15.0)
--- NOTE | 2017-07-09 07:30 | NUR ---
ASSESSMENTDONE. DENIES NEEDS.
[2017-07-09 07:58] LABS: BASOPHILS 0.2 % (0-2); EOSINOPHILS 1.6 % (0-7); HEMATOCRIT 40.5 % (36.0-48.0); HEMOGLOBIN 12.7 g/dL (12-16); IMMATURE GRANULOCYTES 0.2 % (0-5); LYMPHOCYTES 38.1 % (15-50); MCH 23.3 pg (26.0-34.0); MCHC 31.4 g/dL (31.0-37.0); MCV 74.2 fL (80.0-100.0); MEAN PLATELET VOLUME 9.8 fL (7.4-10.4); MONOCYTES 6.7 % (2-11); NEUTROPHILS 53.2 % (40-80); PLATELET COUNT 318 10x3/uL (130-400); RBC 5.46 10x6/uL (4.00-5.40); RDW 14.7 % (11.5-14.5); WBC 9.7 10x3/uL (4.8-10.8)
[2017-07-09 08:00] LABS: CALC OSMOLALITY 274 mosm/kg (275-300); CALCIUM 9.1 mg/dL (8.5-10.1); CARBON DIOXIDE 24.3 mmol/L (21.0-32.0); CHLORIDE - SERUM 102 mmol/L (98-107); CREATININE - SERUM 0.6 mg/dL (0.6-1.3); POTASSIUM - SERUM 4.5 mmol/L (3.5-5.1); SODIUM 135 mmol/L (136-145); UREA NITROGEN 12 mg/dL (7-18); eGFR NON AFRICAN AMERICAN > 90 mL/min (90-120)
[2017-07-09 08:02] LABS: GLUCOSE 196 mg/dL (74-106)
--- NOTE | 2017-07-09 08:30 | NUR ---
TO IR PER BED
--- NOTE | 2017-07-09 14:57 | NUR ---
SLEEPING AT PRESENT. NO APPARENT DISTRESS. WILL CONTINUE TO MONITOR.
--- NOTE | 2017-07-09 16:50 | NUR ---
WITHOUT CHANGES OR AISTRESS NOTED AT THIS TIME.
[2017-07-10 02:14] VITALS: BP 99/85
[2017-07-10 05:55] VITALS: BP 112/76
[2017-07-10 06:54] LABS: INR 1.12 (0.85-1.17)
[2017-07-10 06:55] LABS: APTT 47.8 SECONDS (22.8-39.4)
--- NOTE | 2017-07-10 07:30 | NUR ---
HEPARIN DRIP INCREASED TO 9ML PER HOUR = 9 UNITS PER HOUR PER PROTOCOL. PTT RESULTED AT 47.8. PROTOCOL INITIATED AFTER NOC NURSE RECEIVED ORDERS FROM AT THIS TIME.
[2017-07-10 07:43] VITALS: BP 101/73
--- NOTE | 2017-07-10 09:40 | NUR ---
MEDICATED FOR PAIN WITH ULTRAM UPON REQUEST AT THIS TIME. NO DISTRESS.
[2017-07-10 11:35] VITALS: BP 111/60
--- NOTE | 2017-07-10 11:40 | NUR ---
NEW MORPHINE SYRINGE TO PACKAGE DELIVERY DRIVER PUMP AT THIS TIME. NO DISTRESS.
--- NOTE | 2017-07-10 11:48 | NUR ---
FSBS 189. 4 UNITS HUMULIN ADMINISTERED PER SLIDING SCALE. NO DISTRESS.
--- NOTE | 2017-07-10 13:28 | NUR ---
STILL WAITING FOR PTT TO RESULT ON PATIENT. LAB WAS NOT DRAWN UNTIL 9620
--- NOTE | 2017-07-10 13:36 | NUR ---
PTT RESULTED AT THIS TIME. PER PROTOCOL, HEPARIN DRIP INCREASED BY 100/UNITS AN HOUR. HEPARIN IS NOW INFUSING AT 10 UNITS/HR.
--- NOTE | 2017-07-10 15:50 | NUR ---
NEW HEPARIN BAG HUNG AT THIS TIME. BANDAID PROVIDED TO PATIENT UPON REQUEST FOR LONG FAKE NAILS COMING OFF AND HURTING HER NAILBED. CALL LIGHT WITHIN REACH. NO DISTRESS.
--- NOTE | 2017-07-10 17:09 | NUR ---
FSBS 198. 4 UNITS HUMULIN ADMINISTERED PER SLIDING SCALE. NO DISTRESS.
--- NOTE | 2017-07-10 18:55 | NUR ---
PTT RESULTED. NO CHANGE TO CURRENT RATE PER PROTOCOL! HEPARIN FLOWSHEET DOCUMENTED.
--- NOTE | 2017-07-10 19:31 | NUR ---
PT ASLEEP. RESPIRATIONS EVEN AND UNLABORED 18. PT HAS ELECTRIC WHEELCHAIR AT BEDSIDE. HEPARIN INFUSING AT 10, NS AT 30 TO RIGHT FOREARM. CARTON MACHINE OPERATOR AVALIBLE IN REACH. PT HAS NO S/S OF DISTRESS. BED LOW AND CALL LIGHT IN REACH. WILL CPOC
[2017-07-10 21:50] VITALS: BP 110/60
--- NOTE | 2017-07-10 23:06 | NUR ---
PT WOKE YELLING FOR GRANDBABY. PT THOUGHT SHE WAS AT HOME AND HER GRANDBABY WAS LAYING WITH HER AND WHEN SHE WOKE UP SHE WAS GONE. PT NOW REORIENTED. AAO. DENIES ANY NEEDS. NO S/S OF DISTRESS. WILL CPOC
[2017-07-11 00:20] VITALS: BP 107/69
--- NOTE | 2017-07-11 00:30 | NUR ---
PT UP TO BEDSIDE COMMODE. PT WEAK, MAX ASSISTANCE WITH TRANSFER. PT URINE IS CONCENTRATED, BROWN URINE..PT DENIES ANY ABD PAIN. PT BACK IN BED. BED LOW AND CALL LIGHT IN REACH. WILL CPOC
[2017-07-11 04:33] VITALS: BP 122/79
--- NOTE | 2017-07-11 05:03 | NUR ---
PT UP TO BSC. ASSISTANCE NEEDED. IF PT IS ABLE TO TAKE HER TIME SHE IS ONLY X1. PT C/O LLE HURTING DURING TRANSFER. URINE CONCENTRATED BROWN/ BLOODY. PT DENIES ANY NEEDS AT THIS TIME. WILL CPOC
[2017-07-11 06:34] LABS: APTT 123.3 SECONDS (22.8-39.4); INR 1.66 (0.85-1.17); PROTIME 19.1 SECONDS (11.6-15.0)
--- NOTE | 2017-07-11 06:52 | NUR ---
PT APTT IS 123.3. HOLDING HEPARIN FOR 30 MINUTES AND DECREASING BY 200 UNITS PER HOUR. HEPARIN AT 10 WILL DECREASE TO 8. PT SITTING WITH HOB 45 EATING GRAMCRACKERS. FSBS WAS 209 COVERED WITH 8 UNITS. PT DENIES ANY NEEDS. NO S/S OF DISTRESS. WILL CPOC
[2017-07-11 08:21] VITALS: BP 138/75
[2017-07-11 11:34] VITALS: BP 103/64
--- NOTE | 2017-07-11 13:21 | NUR ---
THIS AM, PT HAS AMBULATED TO BR WITH ASSISTANCE AND USE OF WALKER. LEFT FOOT IS COOL. GOOD BLANCHING, PEDIAL PULSE IS PRESENT BUT WEAK. HEPARIN GTT INFUSING PER PROTOCOL. SEE ASSESSMENT FOR FURTHER EVAL.
--- NOTE | 2017-07-11 13:31 | NUR ---
MS EXTRUSION ENGINEER HAS FALLEN OFF PER PHARMACY. Regan MARIA RN CALLED AND ORDERS RECEIVED TO LEAVE EXTRUSION ENGINEER OFF AND USE TRAMADOL. TRAMADOL GIVEN TO PT. ALSO PTT RESULTS IN. PTT IS 63.3. HEPARIN GTT RATE INCREASED TO 9 PER PROTOCOL. PTT ORDERED FOR 1929. RATE VERIFIED BY Benson SHAW RN.
[2017-07-11 16:14] VITALS: BP 92/57
--- NOTE | 2017-07-11 18:52 | NUR ---
UP TO BR WITH ASSIST AND WALKER. SMALL BM. URINE IS BLOOD TINGED.
--- NOTE | 2017-07-11 19:48 | NUR ---
PT AWAKE, ALERT, ORIENTED, ASKING FOR HER HS MEDS R/T BEING READY TO GO TO SLEEP. PT DENIES ANY OTHER NEEDS, CONTINUE TO MONITOR CLOSELY.
[2017-07-11 20:00] VITALS: BP 108/72
--- NOTE | 2017-07-11 20:28 | NUR ---
PTT RESULTS 07/11/17 @ 1900 IS 69.7. PER HEPARIN FLOW SHEET THAT RATE IS NOT CHANGED AND NEXT PTT TO BE DRAWN WITH AM LABS.
[2017-07-12 00:21] VITALS: BP 127/70
[2017-07-12 04:58] VITALS: BP 138/73
[2017-07-12 05:14] LABS: INR 0.98 (0.85-1.17); PROTIME 12.6 SECONDS (11.6-15.0)
--- NOTE | 2017-07-12 07:17 | NUR ---
PT IS POSITIVE FOR A MODERATE AMOUNT OF BLOOD IN HER URINE.
--- NOTE | 2017-07-12 07:25 | NUR ---
ASSESSMENT CCOMPLETED. NO TELEMERTY OR O2. RIGHT FA IV WITH NS AT 30. RIGHT BKA. LEFT LEG ELEVATED. PPP BUT WEAK TO LEFT LEG. HEPARIN DRIP INFUSING INTO THR RIGHT FA. NS AT 30.NO NEEDSS VOICED
[2017-07-12 08:23] LABS: HEMATOCRIT 36.5 % (36.0-48.0); HEMOGLOBIN 11.6 g/dL (12-16); MCH 23.2 pg (26.0-34.0); MCHC 31.8 g/dL (31.0-37.0); MCV 73.1 fL (80.0-100.0); MEAN PLATELET VOLUME 10.1 fL (7.4-10.4); RBC 4.99 10x6/uL (4.00-5.40); RDW 14.8 % (11.5-14.5); WBC 7.6 10x3/uL (4.8-10.8)
[2017-07-12 08:31] LABS: CALC OSMOLALITY 282 mosm/kg (275-300); CALCIUM 9.1 mg/dL (8.5-10.1); CARBON DIOXIDE 24.4 mmol/L (21.0-32.0); CHLORIDE - SERUM 106 mmol/L (98-107); CREATININE - SERUM 0.7 mg/dL (0.6-1.3); GLUCOSE 182 mg/dL (74-106); POTASSIUM - SERUM 4.2 mmol/L (3.5-5.1); SODIUM 140 mmol/L (136-145); UREA NITROGEN 10 mg/dL (7-18); eGFR NON AFRICAN AMERICAN 90 mL/min (90-120)
[2017-07-12 09:15] VITALS: BP 95/66
[2017-07-12 11:53] VITALS: BP 101/60
[2017-07-12 11:58] LABS: INR 2.19 (0.85-1.17); PROTIME 23.7 SECONDS (11.6-15.0)
--- NOTE | 2017-07-12 12:20 | NUR ---
HEP DRIP DCD PER ORDERS.
--- NOTE | 2017-07-12 13:41 | NUR ---
Nutrition Follow Up: Pt was unavailable at the time of RD visit. Interview deferred. Pt is eating 78% meal avg on an AHA diet. +BM 07/11/17. Wt stable. Labs reviewed - Glucose elevated. Meds noted. Will change diet to AHA ADA to aid in glucose control. RD following.
--- NOTE | 2017-07-12 13:50 | NUR ---
SITTING UP IN CHAIR. NO DISTRESS NOTED. WILL CONTINUE TO MONITOR.
--- NOTE | 2017-07-12 16:41 | NUR ---
Patient Name: SARAH ROBERTS Admission Status: Urgent Accout number: [id number] Admission Date: 07-06-2017 : 1955 Admission Diagnosis:PAIN IN LEFT FOOT Attending: BRITTON DAVALOS Current LOS: 6 Anticipated DC Date: 07-13-2017 Planned Disposition: Inpatient Rehab Primary Insurance: MEDICARE A & B PLANNED EXTERNAL PROVIDER: [facility] Discharge Planning Comments: * Is the patient Alert and Oriented? Yes 0 * How many steps to enter\exit or inside your home? NONE 0 * P[facility] RAD[facility] WILLIS[facility] [place] [facility] * Pharmacy [facility] [place] [facility] * Preadmission Environment Home Alone 0 * ADLs Independent 0 * Equipment Bedside Commode Other Shower Chair Walker Wheelchair 0 * Other Equipment ELECTRIC WHEELCHAIR NO MEDICAL EQUIPMENT PROVIDER PREFERENCE 0 * List name and contact numbers for known caregivers / representatives who currently or will assist patient after discharge: NYASIA ROSALES DTR, 0 * Community resources currently utilized Private Duty Care 0 * Please name any agencies selected above. [facility], DTR IS PT'S CAREGIVER, ALL EVERY DAY, SOME NIGHTS NEEDED 0 * Additional services required to return to the preadmission environment? Yes * Can the patient safely return to the preadmission environment? Yes 0 * Has this patient been hospitalized within the prior 30 days at any hospital? No 0 CM RECEIVED ORDER FOR INPATIENT REHAB PRESCREENING. CM MET WITH PT IN ROOM TO DISCUSS DISCHARGE PLANNING AND NEEDS. PT REPORTS LIVING AT HOME INDEPENDENTLY AND ALONE. PT'S DAUGHTER IS PAID CAREGIVER THROUGH [facility] AND CARES FOR PT DURING DAYTIME HOURS 7 DAYS PER WEEK AND CAN STAY AT NIGHT IF NEEDED. PT REPORTS HAVING ALL NEEDED MEDICAL EQUIPMENT WITH NO PROVIDER PREFERENCE. PT HAS NO OTHER OUTSIDE SERVICES ASSISTING IN THE HOME. CM DISCUSSED AVAILABILITY OF HOME HEALTH, REHAB SERVICES AND MEDICAL EQUIPMENT. PT WOULD LIKE TO STAY AT [facility] FOR REHAB AND RETURN HOME INDEPENDENTLY. PT CALLED HER DAUGHTER WHO AGREED WITH PLAN. PT DENIES FURTHER DISCHARGE NEEDS AT THIS TIME. PT REPORTS MEDICAID TRANSPORT WILL PICK HER UP FOR DISCHARGE HOME. IMPORTANT MESSAGE FROM MEDICARE PROVIDED AND EXPLAINED. CM SPOKE TO [facility], THEY PLAN TO ACCEPT PT FOR REHAB.AT DISCHARGE. PT NOTIFIED, IN AGREEMENT WITH DISCHARGE TO INPATIENT REHAB. NOTIFY [facility] WHEN DISCHARGE ORDER IS RECEIVED; REHAB WILL CONTACT MED 2 NURSE WITH ROOM NUMBER WHEN READY TO ACCEPT PT AND NURSE REPORT. Gospel Worker: Hernando Yan
--- NOTE | 2017-07-12 16:42 | NUR ---
Rehab Note- Acute Rehab Prescreen order received. The patient is a good acute rehab candidate. Visited with the patient, she is interested in [facility] Acute Rehab. Will plan on accepting the patient when she is medically stable and ready for discharge from the acute hospital. Thank you for this referral! Aga Spencer RN Clinical Liaison, [facility] Rehab
[2017-07-12 16:53] VITALS: BP 103/68
--- NOTE | 2017-07-12 18:18 | NUR ---
UP IN BED. DENIES ANY NEEDS. PT SAT UP IN CHAIR FOR 2 HOURS TODAY. CALL LIGHT IN REACH WITH SR UP
[2017-07-12 22:42] VITALS: BP 102/70
[2017-07-13 05:19] VITALS: BP 107/71
--- NOTE | 2017-07-13 05:43 | NUR ---
NURSE ROUNDS 21:00 - PT LYING IN BED, AWAKE, ALERT, ORIENTED, REQUESTING HER HS MEDS. PT STATES SHE IS LOOKING FORWARD TO GOING TO REHAB, NO NEEDS. CONTINUE TO MONITOR CLOSELY.
--- NOTE | 2017-07-13 05:52 | NUR ---
PT DID USE BED TYLER AROUND 0400 THIS A.M. TO VOID. THERE IS STILL BLOOD PRESENT IN PTS URINE, HOWEVER, NOT MUCH THE NIGHT BEFORE. PT DENIES ANY URINARY S/S AT THIS TIME.
--- NOTE | 2017-07-13 06:35 | NUR ---
PT RESTING COMFORTABLY, STATES THE NITRO TO HER LLE DOES HELP AND SHE CAN TELL A DIFFERENCE WITH HER CIRCULATION AND PAIN. NO NEEDS AT THIS TIME, CONTINUE TO MONITOR CLOSELY.
[2017-07-13 06:45] LABS: INR 2.36 (0.85-1.17); PROTIME 25.2 SECONDS (11.6-15.0)
--- NOTE | 2017-07-13 07:20 | NUR ---
RECEIVED REPORT ON PATIENT. MORNING ROUNDS MADE. PATIENT LAYING IN BED WITH EYES CLOSED. HER CHEST RISES AND FALLS EQUALLY BILAT. NAD NOTED AT THIS TIME. CPOC.
[2017-07-13 10:27] VITALS: BP 124/64
[2017-07-13] MEDS ORDERED: COUMADIN5 MG PO (11:14)
[2017-07-13] MEDS ORDERED: NITRO-BID60 GM TOPICAL (11:15)
[2017-07-13 11:56] VITALS: BP 121/80
--- NOTE | 2017-07-13 13:56 | NUR ---
SITTING UP IN CHAIR. EATING LUNCH WILL CONTINUE TO MONITOR.
--- NOTE | 2017-07-13 15:25 | NUR ---
PATIENT STATES SHE ALREADY HAS HAD A FLU SHOT
--- NOTE | 2017-07-13 16:48 | NUR ---
PATIENT SITTING UP IN BED, WATCHING TV. WENT OVER DISCHARGE PAPERWORK WITH PATIENT, ALL QUESTIONS ANSWERED. IV DC'D WITH TIP OF CATHETER INTACT. PRESSURE HELD TO SITE AND BANDAGE APPLIED. HELPED PATIENT GATHER ALL BELONGINGS. PATIENT TRANSPORTED TO REHAB VIA HER PRIVATE ELECTRIC WHEELCHAIR.
== END 2017-07-13 16:30 | DRG 253 ==
LOC: D.M2 15:01
PROVIDERS: General Practice; Radiology Diagnostic Radiology; ADMIT Internal Medicine Cardiovascular Disease
PROC: 047L3ZZ Dilation of Left Femoral Artery, Percutaneous Approach (ICD-10-PCS; 2017-07-09)
PROC: 047Q3ZZ Dilation of Left Anterior Tibial Artery, Percutaneous Approach (ICD-10-PCS; 2017-07-09)
PROC: 047S3ZZ Dilation of Left Posterior Tibial Artery, Percutaneous Approach (ICD-10-PCS; 2017-07-09)
PROC: 047N3ZZ Dilation of Left Popliteal Artery, Percutaneous Approach (ICD-10-PCS; 2017-07-09)
PROC: B41G1ZZ Fluoroscopy of Left Lower Extremity Arteries using Low Osmolar Contrast (ICD-10-PCS; 2017-07-09)
PROC: 047D3ZZ Dilation of Left Common Iliac Artery, Percutaneous Approach (ICD-10-PCS; principal; 2017-07-09 09:00)
DX: E11.51 Type 2 diabetes mellitus with diabetic peripheral angiopathy without gangrene (principal); T82.856A Stenosis of peripheral vascular stent, initial encounter; I70.222 Atherosclerosis of native arteries of extremities with rest pain, left leg; Y83.8 Other surgical procedures as the cause of abnormal reaction of the patient, or of later complication, without mention of misadventure at the time of the procedure; E11.40 Type 2 diabetes mellitus with diabetic neuropathy, unspecified; I65.22 Occlusion and stenosis of left carotid artery

== ENCOUNTER 2017-07-13 18:00 | Inpatient (IN) | payer MEDICARE ==
[~2017-07-13] VITALS: Ht 152.4 cm; Wt 60.8 kg
[~2017-07-13 18:00] MED LIST changes: +NEURONTIN600 MG PO; +NITRO-BID60 GM TOPICAL
[2017-07-13 19:30] VITALS: BP 122/78
--- NOTE | 2017-07-13 19:30 | NUR ---
PT RESTING IN BED WITH EYES OPEN. ALERT AND ORIENTED X 3. DENIES ACUTE DISCOMFORT AT THIS TIME. VSS. ADMIT PAPERWORK SIGNED, AND UNIT ORIENTATION COMPLETED. PT STATES SHE IS IN REHAB BECAUSE HER LEFT LEG IS TO WEAK TO GO HOME AT THIS TIME. SR'S ARE UP X 2 IN BED. CALL LIGHT AND BEDSIDE TABLE ARE WITHIN EASY REACH.
--- NOTE | 2017-07-13 21:26 | NUR ---
RESTING QUIETLY IN BED WITH EYES CLOSED. RESPS ARE EVEN AND UNLABORED. NO ACUTE DISTRESS NOTED.
[2017-07-13 22:27] VITALS: BP 122/78; BMI 26.2
--- NOTE | 2017-07-13 23:56 | NUR ---
PT RESTING IN BED WITH EYES OPEN. VOICED COMPLAINT OF NO PAIN RELIEF FROM PAIN MEDS. WILL MONITOR CLOSELY.
--- NOTE | 2017-07-14 01:40 | NUR ---
RESTING IN BED, EYES CLOSED, IN PARTIAL LEFT SIDELYING POSITION.
--- NOTE | 2017-07-14 06:12 | NUR ---
PT RESTING IN BED WITH EYES OPEN. VOICED COMPLAINT OF LEFT FOOT PAIN LEVEL OF 8. STATED IT GOT BETTER LAST NIGHT, BUT BEGAN COMING BACK ON STRONG THIS AM. MEDICATED PER OCT.
[2017-07-14 07:12] LABS: BASOPHILS 0.2 % (0-2); EOSINOPHILS 1.7 % (0-7); HEMATOCRIT 37.9 % (36.0-48.0); HEMOGLOBIN 11.7 g/dL (12-16); IMMATURE GRANULOCYTES 0.2 % (0-5); MCH 22.8 pg (26.0-34.0); MCHC 30.9 g/dL (31.0-37.0); MCV 73.7 fL (80.0-100.0); MONOCYTES 5.7 % (2-11); NEUTROPHILS 50.2 % (40-80); RBC 5.14 10x6/uL (4.00-5.40); RDW 14.6 % (11.5-14.5)
[2017-07-14 07:14] LABS: PLATELET COUNT 405 10x3/uL (130-400)
[2017-07-14 07:26] LABS: CALC OSMOLALITY 287 mosm/kg (275-300); CALCIUM 9.3 mg/dL (8.5-10.1); CARBON DIOXIDE 24.5 mmol/L (21.0-32.0); CHLORIDE - SERUM 102 mmol/L (98-107); CREATININE - SERUM 0.8 mg/dL (0.6-1.3); POTASSIUM - SERUM 4.3 mmol/L (3.5-5.1); SODIUM 140 mmol/L (136-145); UREA NITROGEN 12 mg/dL (7-18); eGFR NON AFRICAN AMERICAN 77 mL/min (90-120)
[2017-07-14 07:27] LABS: GLUCOSE 255 mg/dL (74-106)
[2017-07-14 07:37] LABS: INR 2.34 (0.85-1.17)
[2017-07-14 09:52] VITALS: BP 142/90
[2017-07-14 13:07] VITALS: BMI 26.1
--- NOTE | 2017-07-14 15:20 | NUR ---
RESTING QUIETLY IN BED. PAIN MEDS GIVEN ORDERED AND REQUESTED.
--- NOTE | 2017-07-14 18:42 | NUR ---
RESTING QUIETLY IN BED. CALL LIGHT IN REACH. BED IN LOWEST POSITION.
--- NOTE | 2017-07-14 19:30 | NUR ---
PT IS RESTING IN BED WITH EYES OPEN. ALERT AND ORIENTED X 3. VOICED COMPLAINT OF LEFT FOOT PAIN LEVEL OF 4 AT THIS TIME. RIGHT LEG INCISION IS HEALING WELL. SR'S ARE UP X 3 IN BED. CALL LIGHT AND BEDSIDE TABLE ARE WITHIN EASY REACH.
[2017-07-14 22:48] VITALS: BP 106/67
--- NOTE | 2017-07-14 23:00 | NUR ---
RESTING IN BED WITH EYES CLOSED. NO DISTRESS NOTED.
--- NOTE | 2017-07-15 01:00 | NUR ---
PT IS RESTING QUIETLY IN BED WITH EYES CLOSED. RESPS ARE EVEN AND UNLABORED. NO ACUTE DISTRESS NOTED.
--- NOTE | 2017-07-15 03:20 | NUR ---
RESTING IN BED WITH EYES CLOSED.
[2017-07-15 06:56] LABS: INR 2.4 (0.85-1.17); PROTIME 25.5 SECONDS (11.6-15.0)
--- NOTE | 2017-07-15 08:16 | NUR ---
SITTING UP IN BED EATING BREAKFAST. BED ALARM IN PLACE. DENIES NEEDS.
[2017-07-15 08:45] VITALS: BP 137/88
--- NOTE | 2017-07-15 14:14 | NUR ---
NITRO PAST APPLIED TO FOOT AND TOES ORDERED.MOD ASST TO TRANSFER
--- NOTE | 2017-07-15 16:23 | NUR ---
RESTING IN BED, EYES CLOSED. BED LOW. BED ALARM IN PLACE
--- NOTE | 2017-07-15 22:06 | NUR ---
RECHECK PT'S BP IS 108/65, P-102.
[2017-07-16 01:49] VITALS: BP 108/65
--- NOTE | 2017-07-16 02:12 | NUR ---
REST IN BED, CALL LIGHT IN REACH.
--- NOTE | 2017-07-16 05:10 | NUR ---
RESTING IN BED WITH EYES CLOSED. NO S/S OF DISTRESS OBSERVED. CALL LIGHT AND OVERBED TABLE IN REACH.
--- NOTE | 2017-07-16 05:49 | NUR ---
PT BEDSCALE WEIGHT IS 137 LB, 3 OUNCE.
[2017-07-16 07:21] LABS: BASOPHILS 0.1 % (0-2); EOSINOPHILS 1.2 % (0-7); HEMATOCRIT 38.5 % (36.0-48.0); HEMOGLOBIN 11.8 g/dL (12-16); IMMATURE GRANULOCYTES 0.1 % (0-5); LYMPHOCYTES 42.9 % (15-50); MCH 22.6 pg (26.0-34.0); MCHC 30.6 g/dL (31.0-37.0); MCV 73.9 fL (80.0-100.0); MEAN PLATELET VOLUME 9.4 fL (7.4-10.4); MONOCYTES 5.6 % (2-11); NEUTROPHILS 50.1 % (40-80); PLATELET COUNT 444 10x3/uL (130-400); RBC 5.21 10x6/uL (4.00-5.40); RDW 14.9 % (11.5-14.5); WBC 9.8 10x3/uL (4.8-10.8)
[2017-07-16 07:30] LABS: INR 2.65 (0.85-1.17); PROTIME 27.6 SECONDS (11.6-15.0)
[2017-07-16 07:40] LABS: CALC OSMOLALITY 283 mosm/kg (275-300); CALCIUM 9.5 mg/dL (8.5-10.1); CARBON DIOXIDE 25.1 mmol/L (21.0-32.0); CHLORIDE - SERUM 103 mmol/L (98-107); CREATININE - SERUM 0.8 mg/dL (0.6-1.3); GLUCOSE 262 mg/dL (74-106); POTASSIUM - SERUM 4.4 mmol/L (3.5-5.1); SODIUM 137 mmol/L (136-145); UREA NITROGEN 16 mg/dL (7-18); eGFR NON AFRICAN AMERICAN 77 mL/min (90-120)
--- NOTE | 2017-07-16 07:55 | NUR ---
RESTING QUIETLY IN BED. CALL LIGHT IN REACH. BED IN LOWEST POSITION.
--- NOTE | 2017-07-16 18:34 | NUR ---
LAYING IN BED TALKING ON PHONE. CALL LIGHT IN REACH
--- NOTE | 2017-07-16 19:09 | NUR ---
PT. IN BED WITH HOB UP FOR COMFORT AND IS WATCHING TV. PT WANTS HER NURSE TO COME TALK WITH HER ABOUT HER LEFT FOOT PAIN AND HER ORDERED PAIN MEDS. INFORMED PT'S NURSE, DEDE RENEE OF PT'S REQUEST.
--- NOTE | 2017-07-16 22:27 | NUR ---
PT IS RESTING IN BED WITH EYES OPEN. ALERT AND ORIENTED X 3. DENIES ACUTE DISCOMFORT AT THIS TIME. VOICED RIGHT FOOT PAIN LEVEL OF 2. SR'S ARE UP X 2 IN BED. CALL LIGHT AND BEDSIDE TABLE ARE WITHIN EASY REACH.
[2017-07-16 22:47] VITALS: BP 128/79
--- NOTE | 2017-07-17 02:51 | NUR ---
PT RESTING IN BED WITH EYES CLOSED.
--- NOTE | 2017-07-17 06:30 | NUR ---
PT IS RESTING IN BED WITH EYES CLOSED. NO ACUTE DISTRESS NOTED.
[2017-07-17 06:32] LABS: INR 3.04 (0.85-1.17); PROTIME 30.7 SECONDS (11.6-15.0)
--- NOTE | 2017-07-17 08:00 | NUR ---
EATING LUNCH.CL IN REACH.
--- NOTE | 2017-07-17 08:00 | NUR ---
SHIFT ASSMT COMPLETED.BREAKFAST MEAL GIVEN.DENIES NEEDS AT PRESENT.
[2017-07-17 08:44] VITALS: BP 92/64
--- NOTE | 2017-07-17 09:30 | NUR ---
OBSERVED URINE WINE COLORED.STATES HAS DONE THIS BEFORE WHILE ON COUMADIN.REPORTED TO .
--- NOTE | 2017-07-17 15:52 | NUR ---
CALLED YASH HOLLEY TO REPORT BLOOD IN URINE;WINE COLORED.INR 3.04.STATED TO HOLD COUMADIN TODAY.
[2017-07-17 16:49] LABS: HEMATOCRIT 39.3 % (36.0-48.0); HEMOGLOBIN 12.2 g/dL (12-16); MCH 22.9 pg (26.0-34.0); MCV 73.9 fL (80.0-100.0); MEAN PLATELET VOLUME 9.2 fL (7.4-10.4); RBC 5.32 10x6/uL (4.00-5.40); RDW 15.1 % (11.5-14.5); WBC 11.3 10x3/uL (4.8-10.8)
[2017-07-17 17:12] LABS: APPEARANCE HAZY (CLEAR); COLOR BROWN (YELLOW); NITRITE NEGATIVE (NEGATIVE); SPECIFIC GRAVITY 1.015 (1.005-1.020)
[2017-07-17 17:13] LABS: BILIRUBIN NEGATIVE (NEGATIVE); GLUCOSE 250 mg/dL (NEGATIVE); KETONE NEGATIVE (NEGATIVE); PROTEIN 1+ mg/dL (NEGATIVE); UROBILINOGEN NORMAL (NORMAL)
[2017-07-17 17:16] LABS: BACTERIA MANY /hpf (NONE SEEN); EPITHELIAL CELLS 0-5 /hpf (0-5); RED CELLS - URINE >50 /hpf (0-5); WHITE CELLS - URINE 25-50 /hpf (0-5); YEAST >1+ WITH HYPHAE /hpf (NONE SEEN)
--- NOTE | 2017-07-17 17:22 | NUR ---
CALLED AND STATED WILL COME AND SEE PT.
[2017-07-17 18:09] VITALS: Ht 152.4 cm; Wt 60.8 kg
--- NOTE | 2017-07-17 18:17 | NUR ---
CAME AND SEEN PT.IN AND OUT CATH PERFORMED,WINE COLORED URINE COLLECTED AND TAKEN TO LAB.NIYA WELL.
[2017-07-17 19:30] VITALS: BP 101/61
--- NOTE | 2017-07-17 21:40 | NUR ---
PT IN BED WITH HOB UP FOR COMFORT. WATCHING TV. ALERT & ORIENTED. NO O2. NO IV. TRACY ALARM ON. BED IN LOWEST POSITION AND CALL LIGHT WIHTIN REACH.
--- NOTE | 2017-07-18 01:40 | NUR ---
RESTING IN BED, EYES CLOSED.
--- NOTE | 2017-07-18 03:32 | NUR ---
ASKED PT IF SHE HAS VOIDED. PT STATES SHE HAS NOT. WILL BLADDER SCAN PT.
--- NOTE | 2017-07-18 03:46 | NUR ---
PT VOIDED 350ML OF RED COLORED URINE.
--- NOTE | 2017-07-18 05:50 | NUR ---
PT IN BED WITH HOB UP FOR COMFORT. WATCHING TV. BED IN LOWEST POSITION AND CALL LIGHT WITHIN REACH. TRACY ALARM ON.
[2017-07-18 07:11] LABS: INR 3.19 (0.85-1.17); PROTIME 31.9 SECONDS (11.6-15.0)
--- NOTE | 2017-07-18 08:00 | NUR ---
SHIFT ASSMT COMPLPETED.UP OOB INTO WC INDEPENDENTLY.BREAKFAST GIVEN.STATES NO CHANGES IN LLE;REPORTS STILL VERY PAINFUL AND SENSITIVE.
[2017-07-18 08:48] VITALS: BP 102/54
--- NOTE | 2017-07-18 12:24 | RHP ---
PATIENT: SARAH ROBERTS MEDICAL RECORD: [id number] ACCOUNT: [id number] LOCATION:[facility]1119 : 57 ADMISSION DATE: 07/13/17 REHABILITATION HISTORY AND PHYSICAL EXAMINATION POST ADMISSION PHYSICIAN EXAMINATION ADMITTING DIAGNOSES: Extremity pain and pain syndrome. HISTORY OF PRESENT ILLNESS: The patient admitted to inpatient rehab for pain syndrome secondary to a left lower extremity status post arteriogram with DEOILING MACHINE OPERATOR and GREGG. She is a 62-year-old female with known peripheral vascular disease and diabetes and history of right mdtfm-zoe-ddsd amputation, previously bilateral iliac stenting with a 2-week history of worsening lower extremity pain below the knee prior to her acute hospitalization. CTA done at an outside facility reported stenosis within previous stented artery. Initially, the patient was able to bear weight on the left lower extremity, but was unable when she was admitted to the acute hospital. She states that her left extremity began having increasing pain. She had an appointment to see Dr. Desai to discuss possible treatment options. She has been in the hospital since being admitted to the acute hospital floor from his office. She has been seen by interventional radiology, has had intervention of left lower extremity, an arteriogram. She lives alone in her own apartment using a rolling walker and was able to do well, bearing weight on her left lower extremity, but now has increasing pain. She continues to have pain to her left foot. She stated that her right lower extremity was amputated in 2016 and had to have a second amputation secondary to infection. She states that her prosthetic leg for right lower extremity has been having problems getting it on. She states that she does well in her home with just a rolling walker, but transfers well to a motorized wheelchair and uses it outside the home. She has been on a blood thinner and heparin drip is now therapeutic, and currently on Coumadin and aspirin regimen, which has been monitored closely. She has home O2, but only uses it p.r.n. She would like to return back home at her prior level of functioning or better. 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 PAST MEDICAL HISTORY: Significant for CVA, neuropathy, diabetes, peripheral arterial disease, thyroid problems, asthma, weakness, home O2 dependence, tobacco use, hematuria, depression and anxiety. PAST SURGICAL HISTORY: Includes renal stents. She has had a right sghdr-xrc-kuqg amputation, hysterectomy, and thyroid surgery. ALLERGIES: No known drug allergies. CURRENT MEDICATIONS: Include Synthroid 25 mcg daily along with a 112 mcg. She is on Coumadin 5 mg daily. She is on lisinopril 5 mg daily. She is on an insulin combination of 50/50 24 units t.i.d. with meals. She is on aspirin chewable 81 mg daily, Nitro-Bid to apply as needed, Ultram 50 mg q.6 hours p.r.n., Restoril 30 mg at bedtime, Lyrica 50 mg t.i.d., metoprolol 50 mg b.i.d., Neurontin 600 mg t.i.d., cyclobenzaprine 10 mg t.i.d., Ventolin inhaler as needed, polyethylene glycol 17 grams in 8 ounce of water daily. HABITS: She does have a history of tobacco use. HISTORY AND PHYSICAL [id number] SARAH ROBERTS FAMILY HISTORY: Noncontributory. SOCIAL HISTORY: The patient hopes to return back home and get back to her prior level of functioning. REVIEW OF SYSTEMS: GENERAL: She does complain of some weakness. HEENT: She denies cold, cough, or congestion. CARDIOVASCULAR: She denies chest pain. PHYSICAL EXAMINATION: VITAL SIGNS: Stable, afebrile. GENERAL: An elderly female, in no acute distress, alert upon exam. HEENT: Normocephalic and atraumatic. Mucosa moist. NECK: Supple. No lymphadenopathy. LUNGS: Clear at this time. HEART: Regular rate and rhythm. ABDOMEN: Benign. EXTREMITIES: She does have a noted right lbxah-ach-mzrh amputation. NEUROLOGIC: She does have decreased sensation, especially in her left lower extremity. LABORATORY DATA: Her white count is 9.0, H&H of 11 and 37, and platelet count was noted to be 405. Her sodium is 140, potassium 4.3, BUN and creatinine of 12 and 0.8. Her blood sugar is noted to be 255. Her INR today on 5 mg of Coumadin is 2.34. ASSESSMENT: This is a 62-year-old female patient admitted to rehab with a working diagnosis of pain secondary to severe left lower extremity peripheral vascular disease. The patient has potential to make improvement. We instituted the following multidisciplinary therapies including to, but not limited to physical, occupational, respiratory, speech, nutritional services, prosthetics and orthotics. Given her complex condition and risk for more complications, rehabilitation services cannot be provided at a lower level of care such as group home facility. PLAN: 1. Admit to [facility] for intensive inpatient therapy to include the following disciplines: A. Physical therapy to improve gait, all transfer skills and bed mobility to a modified independent level. B. Occupational therapy to improve activities of daily living to a modified independent level. C. Case management to assist with discharge planning and placement options. D. Nutrition to assist with nutritional needs. E. Rehabilitation nursing to assist in monitoring the patient's underlying medical conditions and to assist with any type of bowel or bladder management. 2. The patient's current medications and medical care will be continued. 3. The patient will be placed on standard fall precautions. 4. The patient's estimated length of stay is approximately 7-10 days. 5. We will monitor the patient closely and treat as needed. TRANSINT:[id number] Voice Confirmation ID: [id number] DOCUMENT ID: [id number] HISTORY AND PHYSICAL [id number] SARAH ROBERTS notes whether there has been none or any medical/functional change since admission: - No change since pre-admission ewelina. JORGE attests patient continues to be appropriate for IRF: - Continues to be appropriate. EDISON MONSALVE MD at 1224 CC: [id number] DICTATION DATE: 07/14/17 1230 LABOR RELATIONS MANAGER: 07/14/17 1527 ADM IN [place] [id number] [place] [address]
--- NOTE | 2017-07-18 16:00 | NUR ---
UP IN WC IN ROOM.DENIES NEEDS.
[2017-07-18 19:45] VITALS: BP 112/86
--- NOTE | 2017-07-18 20:00 | NUR ---
PT IN BED WITH HOB UP FOR COMFORT. WATCHING TV. ALERT & ORIENTED. NO O2. NO IV. BED IN LOWEST POSITION AND CALL LIGHT WITHIN REACH.
--- NOTE | 2017-07-18 23:45 | NUR ---
RESTING IN BED ON RIGHT SIDE. RESPIRATIONS ARE QUIET AND UNLABORED.
--- NOTE | 2017-07-19 03:24 | NUR ---
PT LYING IN BED. EYES CLSOED. CHEST RISING AND FALLING. BED IN LOWEST POSITON AND CALL LIGHT WITHIN REACH.
--- NOTE | 2017-07-19 05:18 | NUR ---
PT LYING IN BED. EYES CLOSED. RESPIRATIONS ARE EVEN AND UNLABORED. BED IN LOWEST POSITION AND CALL LIGHT WITHIN REACH.
[2017-07-19 07:02] LABS: INR 2.72 (0.85-1.17); PROTIME 28.2 SECONDS (11.6-15.0)
--- NOTE | 2017-07-19 07:32 | NUR ---
RESTING QUIETLY IN BED. CALL LIGHT IN REACH. BED IN LOWEST POSITION.
[2017-07-19 08:08] VITALS: BP 102/68
--- NOTE | 2017-07-19 11:10 | NUR ---
PATIENT DISCHARGING FROM REHAB AND ADMITTING TO ACUTE FLOOR FOR PENDING SURGERY.
--- NOTE | 2017-07-19 19:10 | NUR ---
PM ROUNDS MADE, PT TALKING ON PHONE, INFORMED PT THAT I WILL BE BACK SHORTLY TO DO ASSESSMENT, PT VERBALIZES UNDERSTANDING, REQUESTS ICE CREAM WHEN I RETURN
[2017-07-19 19:30] VITALS: BP 128/56
--- NOTE | 2017-07-19 20:08 | NUR ---
ASSESSMENT PER FLOW SHEET, PT REPORTS FLATUS, BM TODAY AND VOIDING BY SELF WITH NO DIFFICULTY, PT USES BEDSIDE COMMODE, ADM PAIN MED PO PER MD ORDERS, REQUESTED AND SERVED ICE CREAM, PT REPORTS BEDDING IS WET, COMPLETE BED CHANGED, DENIES FURTHER NEEDS, BED IN LOW POSITION, SIDE RAILS X 2, CALL LIGHT IN REACH, BED ALARM ON AND WORKING PROPERLY
--- NOTE | 2017-07-19 21:15 | NUR ---
ADM 2100 MEDS PER MD ORDERS, SEE EMAR, INFORMED PT THAT SHE WILL BE TRANSFERRED UPSTAIRS, PT "VERY HAPPY" ABOUT THAT, READY TO GET THIS LEG TAKEN CARE OF, NOEMI THOMPSON IN ROOM GATHERING ALL BELONGINGS UP FOR TRANSFER
--- NOTE | 2017-07-19 22:00 | NUR ---
PT DISCHARGED FROM REHAB AND TRANSFERRED TO [facility], ROOM 2222 PER THIS RN, VIA OWN ELECTRIC WC, PT ASSISTED TO BED, ALL BELONGINGS PLACED IN CLOSET, CELL PHONE PLACED ON BEDSIDE TABLE PER PT, PT REQUESTED AND PROVIDED EXTRA PILLOW, PT ORIENTED TO ROOM, BED IN LOW POSITION, SIDE RAILS X 2, CALL LIGHT IN REACH, REPORT GIVEN TO JAMEY IZAGUIRRE
== END 2017-07-19 21:50 | disposition short-term general hospital (02) | DRG 300 ==
LOC: D.REHAB 18:00
PROVIDERS: Internal Medicine Cardiovascular Disease; ADMIT Emergency Medicine
DX: I70.222 Atherosclerosis of native arteries of extremities with rest pain, left leg (principal); J98.11 Atelectasis; F17.200 Nicotine dependence, unspecified, uncomplicated; E11.40 Type 2 diabetes mellitus with diabetic neuropathy, unspecified; M79.672 Pain in left foot; Z89.611 Acquired absence of right leg above knee; E11.65 Type 2 diabetes mellitus with hyperglycemia; I65.22 Occlusion and stenosis of left carotid artery

== ENCOUNTER 2017-07-19 22:04 | Inpatient (IN) | payer MEDICARE, MEDICAID ==
[~2017-07-19] VITALS: Ht 152.4 cm; Wt 65.1 kg
[2017-07-20] VITALS (8 sets, daily range): BP systolic 93–146; BP diastolic 60–87; Ht 152.4 cm; Wt 65.1 kg
--- NOTE | 2017-07-20 00:15 | NUR ---
IV STARTED BY JAMEY ZAYAS IN LEFT FA USING 22 GUAGE CATHETER IN ONE STICK. IV FLUIDS AND CRIMINAL ATTORNEY STARTED PER ORDER.
[2017-07-20 05:40] LABS: BASOPHILS 0.2 % (0-2); EOSINOPHILS 1.9 % (0-7); HEMATOCRIT 37.9 % (36.0-48.0); HEMOGLOBIN 11.5 g/dL (12-16); IMMATURE GRANULOCYTES 0.1 % (0-5); LYMPHOCYTES 46.9 % (15-50); MCH 22.7 pg (26.0-34.0); MCHC 30.3 g/dL (31.0-37.0); MCV 74.9 fL (80.0-100.0); MEAN PLATELET VOLUME 9.7 fL (7.4-10.4); MONOCYTES 7.4 % (2-11); NEUTROPHILS 43.5 % (40-80); PLATELET COUNT 403 10x3/uL (130-400); RBC 5.06 10x6/uL (4.00-5.40); RDW 15.3 % (11.5-14.5); WBC 8.4 10x3/uL (4.8-10.8)
[2017-07-20 06:09] LABS: ANION GAP 11.2 mmol/L (8-16); CALCIUM 9.6 mg/dL (8.5-10.1); CARBON DIOXIDE 28.1 mmol/L (21.0-32.0); CREATININE - SERUM 0.9 mg/dL (0.6-1.3); POTASSIUM - SERUM 4.3 mmol/L (3.5-5.1)
[2017-07-20 06:16] LABS: INR 1.76 (0.85-1.17)
--- NOTE | 2017-07-20 08:00 | NUR ---
ASSESSMENT PER FLOW SHEET. PT WITHOUT DISTRESS.NPO FOR SURGERY TODAY
--- NOTE | 2017-07-20 11:25 | NUR ---
CALL TO DR. ENGLAND OFFICE RE.. PT IS DECLINING SURGERY AND WISHES TO HAVE SECOND OPINION.
--- NOTE | 2017-07-20 11:34 | NUR ---
Patient Name: SARAH ROBERTS Admission Status: Elective Accout number: [id number] Admission Date: 07-19-2017 : 1955 Admission Diagnosis:ATHSCL [place] ARTERIES OF EXTREMITIES W REST PAIN, LEFT Attending: HANNA ALVARADO Current LOS: 1 Anticipated DC Date: 07-24-2017 Planned Disposition: Home Primary Insurance: MEDICARE A & B Discharge Planning Comments: CM MET WITH PATIENT AND FAMILY REGARDING D/C NEEDS AND PLANS. PATIENT STATED SHE LIVES ALONE AND SOMEONE IN FAMILY WILL DRIVE HER HOME AT DISCHARGE. PATIENT STATED SHE HAS NO STEPS OR STAIRS AT HER HOME. PATIENT STATED SHE IS INDEPENDENT FOR THE MOST PART BUT HAS SUPERIOR CARE FOR 5-6 HRS A DAY. PATIENT HAS A WALKER, WHEELCHAIR, GLUCOMETER, NEBULIZER, AND OXYGEN AT HOME. PATIENTS PCP IS DR. WATKINS AT [place] AND USES [facility] IN [place]. CM WILL CONTINUE TO FOLLOW PATIENT WITH D/C NEEDS AND PLANS. PCP DR. WATKINS IN [facility] IN [facility] [phone] (FAMILY) NYASIA [phone] (DAUGHTER) Ultrasound Tester: Niccizac Jaime Is the patient Alert and Oriented? Yes 0 * How many steps to enter\exit or inside your home? 0 0 * PCP DR. WATKINS IN [place] 0 * Pharmacy [facility] IN [facility] 0 * Preadmission Environment Home Alone 0 * ADLs Partial Dependent 0 * Partial ADLs (Assistance needed) Ambulation Bathing Dressing 0 * Equipment Glucometer Nebulizer Oxygen Walker Wheelchair 0 * Other Equipment PORTABLE O2 0 * List name and contact numbers for known caregivers / representatives who currently or will assist patient after discharge: ABHIJEET [phone] (FAMILY) NYASIA (DAUGHTER) [phone] 0 * Community resources currently utilized Other 0 * Please name any agencies selected above. [facility] 5-6 HRS A DAY 0 * Additional services required to return to the preadmission environment? Yes 0 * Can the patient safely return to the preadmission environment? Yes 0 * Has this patient been hospitalized within the prior 30 days at any hospital? No 0 Grand Total: 0
--- NOTE | 2017-07-20 15:00 | NUR ---
PT AND FAMILY DECLING SURGERY AGAIN AFTER RESCHEDULED FOR THIS AFTERNOON.
--- NOTE | 2017-07-20 18:00 | NUR ---
PT REMAINS WITHOUT CHANGE FROM INITIAL SHIFT ASSESSMENT.CONT PLAN OF CARE
--- NOTE | 2017-07-20 19:00 | NUR ---
REPORT RECEIVED AND CARE OF PT ASSUMED. PT SITTING UP IN BED WATCHING TV. IV IN LEFT FA PATENT WITH 1/2 NS INFUSING AT 30 ML / HR. MASTER BLACK BELT - DILAUDID IN USE FOR PAIN CONTROL. WILL MONITOR FOR NEEDS. CALL LIGHT WITHIN REACH.
--- NOTE | 2017-07-20 21:35 | NUR ---
HS MEDICATIONS GIVEN .WILL CONTINUE TO MONITOR FOR NEEDS.
[2017-07-20 23:08] LABS: BASOPHILS 0.2 % (0-2); EOSINOPHILS 1.8 % (0-7); HEMATOCRIT 38.4 % (36.0-48.0); HEMOGLOBIN 11.8 g/dL (12-16); IMMATURE GRANULOCYTES 0.1 % (0-5); LYMPHOCYTES 43.6 % (15-50); MCH 22.6 pg (26.0-34.0); MCHC 30.7 g/dL (31.0-37.0); MCV 73.6 fL (80.0-100.0); MEAN PLATELET VOLUME 9.2 fL (7.4-10.4); MONOCYTES 6.3 % (2-11); PLATELET COUNT 438 10x3/uL (130-400); RBC 5.22 10x6/uL (4.00-5.40); RDW 14.8 % (11.5-14.5); WBC 8.5 10x3/uL (4.8-10.8)
[2017-07-20 23:18] LABS: INR 1.13 (0.85-1.17)
--- NOTE | 2017-07-21 01:50 | NUR ---
PT CAME OUT IN HALLWAY IN HER WHEELCHAIR...STATES SHE HAS BEEN YELLING FOR HELP FOR OVER AN HOUR. THIS NURSE AND 2 OTHERS HAVE BEEN IN THIS CORNER OF UNIT ALL NIGHT...NO YELLS HEARD. ASSISTED PT BACK IN BED AND TURNED ON BED ALARM TO BE ALERTED IF PT GETS UP WITHOUT ASKING FOR ASSISTANCE. WILL CONTINUE TO MONITOR FOR NEEDS.
[2017-07-21 04:00] VITALS: BP 94/53
[2017-07-21 07:00] LABS: INR 1.07 (0.85-1.17); PROTIME 13.5 SECONDS (11.6-15.0)
[2017-07-21 07:16] LABS: CALC OSMOLALITY 277 mosm/kg (275-300); CALCIUM 9.8 mg/dL (8.5-10.1); CARBON DIOXIDE 27.9 mmol/L (21.0-32.0); CHLORIDE - SERUM 102 mmol/L (98-107); CREATININE - SERUM 0.8 mg/dL (0.6-1.3); GLUCOSE 241 mg/dL (74-106); POTASSIUM - SERUM 4.6 mmol/L (3.5-5.1); SODIUM 135 mmol/L (136-145); UREA NITROGEN 12 mg/dL (7-18); eGFR NON AFRICAN AMERICAN 77 mL/min (90-120)
--- NOTE | 2017-07-21 07:20 | NUR ---
REPORT RECEIVED FROM ROAD CROSSING GUARD NURSE. CALL LIGHT IN REACH.
[2017-07-21 07:29] LABS: BASOPHILS 0.1 % (0-2); EOSINOPHILS 1.7 % (0-7); HEMATOCRIT 37.9 % (36.0-48.0); HEMOGLOBIN 11.6 g/dL (12-16); IMMATURE GRANULOCYTES 0.1 % (0-5); LYMPHOCYTES 40.1 % (15-50); MCH 22.5 pg (26.0-34.0); MCHC 30.6 g/dL (31.0-37.0); MCV 73.6 fL (80.0-100.0); MEAN PLATELET VOLUME 9.6 fL (7.4-10.4); MONOCYTES 5.3 % (2-11); NEUTROPHILS 52.7 % (40-80); PLATELET COUNT 455 10x3/uL (130-400); RBC 5.15 10x6/uL (4.00-5.40); RDW 14.8 % (11.5-14.5); WBC 8.9 10x3/uL (4.8-10.8)
[2017-07-21 07:47] VITALS: BP 90/64
--- NOTE | 2017-07-21 08:10 | NUR ---
ASSESSMENT COMPLETED. CALL LIGHT IN REACH. WILL CONTINUE WITH PLAN OF CARE.
--- NOTE | 2017-07-21 08:21 | NUR ---
PATIENT SITTING UP IN BED TALKING ON PHONE AT THIS TIME. NO COMPLAINTS. CALL LIGHT WITHIN REACH.
--- NOTE | 2017-07-21 10:19 | NUR ---
AM MEDS ADMINISTERED. CALL LIGHT IN REACH.
[2017-07-21 12:15] VITALS: BP 100/74
--- NOTE | 2017-07-21 12:50 | NUR ---
EATING LUNCH AT THIS TIME. NO NEEDS VOICED. CALL LIGHT IN REACH.
--- NOTE | 2017-07-21 14:20 | NUR ---
RIDING IN HALLWAY IN HER AT THIS TIME. AT NURSE'S STATION TALKING AND LAUGHING WITH THE STAFF.
[2017-07-21 15:35] VITALS: BP 102/72
--- NOTE | 2017-07-21 15:55 | NUR ---
VERY UPSET. CALLED HER FAMILY AND STATED THAT SHE DIDN'T GET A BATH, DID NOT EAT LUNCH, AND DID NOT GET HER SHEETS CHANGED. PATIENT DID EAT LUNCH, AND REFUSED HELP WITH GETTING HER LINENS CHANGED. RURAL CARRIER ASSOCIATE STATED THEY GAVE HER A BED BATH. CALMED PATIENT DOWN AND IS NOW GETTING A BATH PER PATIENT ACCOUNTING REPRESENTATIVE.
--- NOTE | 2017-07-21 15:55 | NUR ---
REHAB PRESCREEN: THE PATIENT WOS ORGINALLY SENT FROM REHAB TO ACUTE FLOOR DUE TO THE PAIN IN THE FOOT, FOR JENNIFER WAS UNABLE TO PERFORM IN THERAPY. SINCE THE PATIENT HAS DECLINED THE SURGERY THEN THERE IS NO CHANGE IN WHICH SHE WOULD QUALIFY FOR REAHB. IT STANDS SHE IS NOT A CANDIDATE FOR INPATIENT REHAB. IF ANYTHING CHANGES WE WOULD BE GLAD TO RE EVAL HER. THANK YOU FOR THIS EVAL. ROSE MARIE MOSHER LPN REHAB CARE CLINICAL LIAISON
--- NOTE | 2017-07-21 16:28 | NUR ---
AFTERNOON MEDS ADMINISTERED. ATIVAN 1 MG SIVP PER SEVERE ANXIETY. FSBS 234. ALSO IS GETTING BED BATH AND LINENS CHANGED. CALL LIGHT IN REACH.
--- NOTE | 2017-07-21 19:00 | NUR ---
REPORT RECEIVED AND CARE OF PT ASSUMED. PT SITTING UP AT BEDSIDE. IV IN LEFT FA PATENT WITH 1/2 NS INFUSING AT 30 ML/HR. SENIOR ANALYST MARKET INTELLIGENCE / DILAUDID IN USE FOR PAIN CONTROL. WILL MONITOR [place] FOR NEEDS. BED ALARM IN USE.
[2017-07-21 19:30] VITALS: BP 101/61
--- NOTE | 2017-07-21 21:05 | NUR ---
HS MEDICAITONS GIVEN. FSBS 257 THIS CHECK REQUIRING COVERAGE WITH 6 UNITS OF INSULIN PER SLIDING SCALE. WILL CONTINUE TO MONITOR FOR NEEDS.
[2017-07-22 00:18] VITALS: BP 105/58
--- NOTE | 2017-07-22 01:01 | NUR ---
PT RESTING QUIETLY IN SEMI ANN'S POSITION. WILL CONTINUE TO MONITOR FOR NEEDS. BED ALARM IN USE.
[2017-07-22 03:30] VITALS: BP 116/74
--- NOTE | 2017-07-22 06:07 | NUR ---
PT REFUSED TO HAVE AM LABS DRAWN...YELLING AT TECH TO LEAVE HER ALONE.
--- NOTE | 2017-07-22 07:20 | NUR ---
REPORT RECEIVED FROM DEPENDENCY PROGRAM DIRECTOR NURSE. CALL LIGHT IN REACH.
--- NOTE | 2017-07-22 08:30 | NUR ---
ASSESSMENT COMPLETED. CALL LIGHT IN REACH. WILL CONTINUE WITH PLAN OF CARE.
--- NOTE | 2017-07-22 08:41 | NUR ---
PATIENT SITTING UP IN BED EATING AT THIS TIME. IV INTACT. NO COMPLAINTS. CALL LIGHT WITHIN REACH.
[2017-07-22 09:10] LABS: BASOPHILS 0.2 % (0-2); EOSINOPHILS 0.3 % (0-7); HEMATOCRIT 39.4 % (36.0-48.0); HEMOGLOBIN 12.4 g/dL (12-16); IMMATURE GRANULOCYTES 0.2 % (0-5); MCHC 31.5 g/dL (31.0-37.0); MEAN PLATELET VOLUME 9.5 fL (7.4-10.4); MONOCYTES 4.2 % (2-11); NEUTROPHILS 70.1 % (40-80); PLATELET COUNT 450 10x3/uL (130-400); RDW 14.7 % (11.5-14.5); WBC 9.1 10x3/uL (4.8-10.8)
[2017-07-22 09:25] LABS: ANION GAP 15.8 mmol/L (8-16); CALCIUM 9.8 mg/dL (8.5-10.1); CARBON DIOXIDE 23.1 mmol/L (21.0-32.0); CREATININE - SERUM 0.9 mg/dL (0.6-1.3); POTASSIUM - SERUM 3.9 mmol/L (3.5-5.1)
--- NOTE | 2017-07-22 10:13 | NUR ---
AM MEDS ADMINISTERED. CALL LIGHT IN REACH.
[2017-07-22 11:44] VITALS: BP 94/66
--- NOTE | 2017-07-22 12:46 | NUR ---
FSBS 283. HUMALOG 4 UNITS SUBQ TO RIGHT ARM. ZOSYN IVPB. CALL LIGHT IN REACH.
--- NOTE | 2017-07-22 14:55 | NUR ---
FAMILY IN ROOM AT THIS TIME. NO NEEDS VOICED. WILL BRING AFTERNOON MEDS IN JUST A BIT.
--- NOTE | 2017-07-22 15:08 | NUR ---
AFTERNOON MEDS ADMINISTERED PER ORDER. CALL LIGHT IN REACH.
[2017-07-22 16:20] VITALS: BP 132/81
--- NOTE | 2017-07-22 16:51 | NUR ---
RIDING IN HALLWAYS IN WITH FAMILY AT SIDE.
--- NOTE | 2017-07-22 18:06 | NUR ---
4 UNITS INSULIN FOR BS OF 239. WARM BLANKET GIVEN TO PATIENT. NO CHANGES IN INITIAL ASSESSMENT. CALL LIGHT IN REACH. BED ALARM ON. WILL CONTINUE WITH PLAN OF CARE.
--- NOTE | 2017-07-22 19:00 | NUR ---
REPORT RECEIVED AND CARE OF PT ASSUMED. PT SITTING UP IN BED WATCHING TV. IV IN LEFT FA PATENT WITH 1/2 NS INFUSING AT 30 ML / HR. BED ALARM IN PLACE.
[2017-07-22 19:30] VITALS: BP 95/65
--- NOTE | 2017-07-22 20:27 | NUR ---
HS MEDICATIONS GIVEN. WILL CONTINUE TO MONITOR FOR NEEDS.
--- NOTE | 2017-07-22 20:28 | NUR ---
GAVE RESTORIL 30 MG PO WITH HS MEDS PER REQUEST PER PRN ORDER.
--- NOTE | 2017-07-22 20:30 | NUR ---
FSBS 241 THIS CHECK REQUIRING COVERAGE WITH 4 UNITS OF INSULIN PER SLIDING SCALE.
[2017-07-22 23:30] VITALS: BP 86/57
--- NOTE | 2017-07-23 00:05 | NUR ---
PT SPO2 88% AT THIS ASSESSMENT. PLACED O2 AT 2L AND CAME UP TO 94%. NOTIFIED RT TO EVAL PT. WILL CONTINUE TO MONITOR CLOSELY.
[2017-07-23 04:01] VITALS: BP 85/56
[2017-07-23 06:57] LABS: BASOPHILS 0.2 % (0-2); EOSINOPHILS 1.5 % (0-7); HEMATOCRIT 36.9 % (36.0-48.0); HEMOGLOBIN 11.2 g/dL (12-16); IMMATURE GRANULOCYTES 0.2 % (0-5); LYMPHOCYTES 39.3 % (15-50); MCH 22.4 pg (26.0-34.0); MCHC 30.4 g/dL (31.0-37.0); MCV 73.8 fL (80.0-100.0); MEAN PLATELET VOLUME 9.6 fL (7.4-10.4); MONOCYTES 7.4 % (2-11); NEUTROPHILS 51.4 % (40-80); PLATELET COUNT 411 10x3/uL (130-400); RDW 14.8 % (11.5-14.5); WBC 8.3 10x3/uL (4.8-10.8)
[2017-07-23 07:04] LABS: INR 1.27 (0.85-1.17); PROTIME 15.4 SECONDS (11.6-15.0)
[2017-07-23 07:07] LABS: CALC OSMOLALITY 284 mosm/kg (275-300); CALCIUM 10.1 mg/dL (8.5-10.1); CARBON DIOXIDE 24.7 mmol/L (21.0-32.0); CHLORIDE - SERUM 105 mmol/L (98-107); CREATININE - SERUM 0.8 mg/dL (0.6-1.3); GLUCOSE 280 mg/dL (74-106); POTASSIUM - SERUM 4.3 mmol/L (3.5-5.1); SODIUM 137 mmol/L (136-145); eGFR NON AFRICAN AMERICAN 77 mL/min (90-120)
[2017-07-23 07:08] LABS: UREA NITROGEN 15 mg/dL (7-18)
--- NOTE | 2017-07-23 07:45 | NUR ---
ASSESSMENT PER FLOW SHEET.PT WITHOUT DISTRESS.DENIES NEEDS AT PRESENT.CALL LIGHT IN REACH
[2017-07-23 09:10] VITALS: BP 102/67
[2017-07-23] MEDS ORDERED: COUMADIN5 MG PO (09:32)
--- NOTE | 2017-07-23 10:42 | NUR ---
RECEIVED DISCHARGE ORDERS ON PATIENT TO GO HOME. PATIENT WAS NOT ACCEPTED BACK DOWNSTAIRS TO INPATIENT REHAB, CM OFFERED SKILLED FACILITY AND PATIENT JUST WANTED TO GO BACK HOME. SCHEDULED [facility] FOR OIL WELL PUMPER CONF # [id number] WHEN I WENT BACK TO TELL THE PATIENT THAT SCAT WAS SET UP, SHE QUESTIONED ABOUT SURGERY AND DR DAVALOS. TAINA WITH DR DAVALOS ([phone]) PAGED AND AKED TO COME SPEAK WITH PATIENT AND DAUGHTER. TAINA STATED THAT SHE WOULD BE BY AROUND 11 TO COME TALK TO PATIENT. PATIENT KEEPS TALKING IN CIRCLES ON WHAT SHE WANTS TO DO OR HAVE. CM WILL CONTINUE TO FOLLOW AND ASSIST WITH DISCHARGE PLANNING NEEDS [facility] # [phone] CONF # [id number]
--- NOTE | 2017-07-23 10:56 | NUR ---
FAMILY AT BEDSIDE.PT REMAINS WITHOUT DISTRESS.CALL LIGHT IN REACH
--- NOTE | 2017-07-23 11:09 | NUR ---
IV DCD WITH CATH TIP INTACT.
--- NOTE | 2017-07-23 11:45 | NUR ---
DISCHARGE INSTRUCTIONS WITH PT AND DAUGHTER,STATES UNDERSTANDING.PT WISHES TO WAIT IN FRONT OF HOSPITAL FOR BUS.DAUGHTER AT SIDE.PT WITHOUT DISTRESS.LEFT UNIT IN HER PERSONAL MOTORIZED WHEELCHAIR.
--- NOTE | 2017-07-23 12:22 | NUR ---
PT BACK ON UNIT AND IS REQUESTING US KEEP HER CHAIR HERE. INFORMMED PT AND FAMILY WE CAN NOT STORE WHEELCHAIR HERE AT HOSPITAL.PT IS NOT GOING TO TAKE BUS, SHE WILL GO TO [facility] PER DAUGHTER.
--- NOTE | 2017-07-23 13:13 | NUR ---
[facility] TRANSPORTATION WAS SET UP AND PATIENT'S DAUGHTER HERE AT BEDSIDE AND TOOK HER MOM HOME. CM CALLED [facility] TO CANCEL THE PARK MANAGER. PATIENTS ELECTRIC WHEELCHAIR HERE AT THE HOSPITAL AND HER SON WILL BE BY TO PARK MANAGER
== END 2017-07-23 12:00 | disposition home or self-care (01) | DRG 301 ==
LOC: D.MS 22:04
PROVIDERS: Anesthesiology; Internal Medicine Cardiovascular Disease; ADMIT Orthopaedic Surgery
DX: I70.222 Atherosclerosis of native arteries of extremities with rest pain, left leg (principal); E11.40 Type 2 diabetes mellitus with diabetic neuropathy, unspecified; I65.22 Occlusion and stenosis of left carotid artery; Z89.611 Acquired absence of right leg above knee; J45.909 Unspecified asthma, uncomplicated; I10 Essential (primary) hypertension; E03.9 Hypothyroidism, unspecified; E11.65 Type 2 diabetes mellitus with hyperglycemia; I73.9 Peripheral vascular disease, unspecified

== ENCOUNTER → 2018-10-10 11:05 | Outpatient (CLI) | payer MEDICARE, MEDICAID ==
[2017-07-20 09:09] VITALS: BMI 28.0
== END | disposition home or self-care (01) ==
LOC: D.US 11:05
PROVIDERS: ATTEND Internal Medicine Cardiovascular Disease
DX: I65.21 Occlusion and stenosis of right carotid artery (principal)

== ENCOUNTER 2018-11-04 10:01 | Inpatient (IN) | payer MEDICARE, MEDICAID ==
[~2018-11-04] VITALS: Ht 152.4 cm; Wt 55.1 kg
[2018-11-04] VITALS (13 sets, daily range): BP systolic 103–141; BP diastolic 69–87; BMI 23.4
--- NOTE | ~2018-11-04 | OP ---
PATIENT NAME: SARAH ROBERTS MEDICAL RECORD: [id number] :57 [facility] ADMISSION DATE:11/04/18 SURGEON: VIRGILIO DAVALOS MD DATE OF OPERATION: 11/05/2018 SURGEON: Virgilio Davalos MD ANESTHESIA: General endotracheal, Dr. Dowling. OPERATION PERFORMED: Right carotid endarterectomy with patch angioplasty. PREOPERATIVE DIAGNOSIS: Severe right internal carotid artery stenosis. POSTOPERATIVE DIAGNOSIS: Severe right internal carotid artery stenosis. INDICATION FOR OPERATION: Severe right internal carotid artery stenosis. FINDINGS AT OPERATION: Severe greater than 90% right internal carotid artery stenosis. ESTIMATED BLOOD LOSS: Less than 100 mL. FINDINGS OF THE OPERATION: There were no EEG changes with clamping or unclamping of the carotid artery. DESCRIPTION OF PROCEDURE: After informed consent, adequate preoperative medication evaluation, the patient was brought to the operating room and placed on the table in supine position. After induction of general endotracheal anesthesia and application of appropriate monitoring devices, the right neck was prepped and draped in a sterile field utilizing Betadine scrub, alcohol, and Betadine solution. Betadine-impregnated drape was also used. An oblique incision was made in the skin crease. Dissection carried down to the fascia. Hemostasis was maintained with electrocautery. Facial vein was identified and divided. Utilizing sharp dissection, the common carotid, internal and external carotid arteries were dissected free of surrounding structures protecting the neurological structures. The patient was given a calculated dose of heparin. After 3 minutes, clamps were applied. After 2 minutes, no EEG change. The arteriotomy was made and extended with Campo scissors. Artery underwent endarterectomy sharply. Artery underwent extensive debridement and irrigation. Utilizing a CorMatrix vascular patch and running 7-0 Prolene suture, the arteriotomy was closed with a patch angioplasty technique. All maneuvers to remove trapped air performed. Clamps removed sequentially. There were no EEG changes. The patient was given a calculated dose of protamine to reverse the heparin. Hemostasis was achieved. A #7 Dwight-Limon drain was left in the depths of wound and brought through the base of the neck. Neck was again irrigated. Instrument count and sponge count were correct times 2. Neck was closed in layers utilizing 3-0 Vicryl on the platysma, 5-0 subcuticular Monocryl on the skin. Sterile dressings were applied. The patient tolerated the procedure well and was transferred to the CV ICU in satisfactory condition. TRANSINT:[id number] Voice Confirmation ID: [id number] DOCUMENT ID: [id number] OPERATIVE REPORT [id number] SARAH ROBERTS EDWARD MD CC: [id number] DICTATION DATE: 11/05/1856 FORMING AND ASSEMBLING SUPERVISOR: 11/05/18 1213 ADM IN [facility] [id number] [place] [address]
--- NOTE | 2018-11-04 14:00 | NUR ---
PT ARRIVED IN THE UNIT VIA DIRECT ADMIT. DELAY IN PT BEING TRANSFERED IN THE COMPUTER. PT SETTLED IN. VSS. CALL LIGHT IN REACH. MONTSERRAT HARVEY.
--- NOTE | 2018-11-04 15:24 | NUR ---
PT TRANSFERED TO XR FOR PA AND LATERAL.
[2018-11-04 15:41] LABS: HEMATOCRIT 39.7 % (36.0-48.0); HEMOGLOBIN 12.5 g/dL (12-16); MCH 23.3 pg (26.0-34.0); MCHC 31.5 g/dL (31.0-37.0); MCV 74.1 fL (80.0-100.0); MEAN PLATELET VOLUME 10.2 fL (7.4-10.4); RBC 5.36 10x6/uL (4.00-5.40); RDW 15.2 % (11.5-14.5); WBC 7.2 10x3/uL (4.8-10.8)
[2018-11-04] MEDS ORDERED: PLAVIX75 MG PO (15:44)
[2018-11-04 15:59] LABS: INR 1.02 (0.85-1.17); PROTIME 12.9 SECONDS (11.6-15.0)
[2018-11-04 16:00] LABS: APTT 24.5 SECONDS (22.8-39.4)
[2018-11-04 16:16] LABS: ALBUMIN 3.4 g/dL (3.4-5.0); ANION GAP 14.1 mmol/L (8-16); BILIRUBIN - TOTAL 0.2 mg/dL (0.2-1.3); CALCIUM 9.6 mg/dL (8.5-10.1); CARBON DIOXIDE 25.5 mmol/L (21.0-32.0); CREATININE - SERUM 1.4 mg/dL (0.6-1.3); POTASSIUM - SERUM 3.6 mmol/L (3.5-5.1); PROTEIN - SERUM 8.3 g/dL (6.4-8.2)
--- NOTE | 2018-11-04 18:27 | NUR ---
INSULIN GTT STARTED ORDERED.
--- NOTE | 2018-11-04 19:45 | NUR ---
REC'D TO CARE, PATIENT FINANCIAL COORDINATOR PER FLOWSHEET. PT ALERT AND ORIENTED, PRE-OP TEACHING DONE. PT DENIES NEEDS. VSS. HIGH AKA BOTH LEGS NOTED. PT ABLE TO REPOSITION SELF WITH OUT DIFFICULTY. ALARMS ON AND C/L IN REACH.
--- NOTE | 2018-11-04 20:15 | NUR ---
PT VOIDED 200ML HAZY YELLOW URINE ON CLEAN BEDPAN, SAMPLE TO LAB. NAVID-CARE PER PT.
--- NOTE | 2018-11-04 21:04 | NUR ---
ADMIN HS MEDS PER MD ORDERS. PT DENIES OTHER NEEDS.
[2018-11-04 21:07] LABS: APPEARANCE CLEAR (CLEAR); BILIRUBIN NEGATIVE (NEGATIVE); COLOR YELLOW (YELLOW); GLUCOSE 1000 mg/dL (NEGATIVE); KETONE NEGATIVE (NEGATIVE); NITRITE NEGATIVE (NEGATIVE); PROTEIN TRACE mg/dL (NEGATIVE); UROBILINOGEN NORMAL (NORMAL)
[2018-11-04 21:23] LABS: RED CELLS - URINE OCC /hpf (0-5)
[2018-11-04 21:24] LABS: BACTERIA MODERATE /hpf (NONE SEEN); EPITHELIAL CELLS 0-5 /hpf (0-5); YEAST >1+ WITH HYPHAE /hpf (NONE SEEN)
--- NOTE | 2018-11-04 22:56 | NUR ---
ADMIN PRN ULTRAM FOR PT C/O CHRONIC PAIN. DENIES OTHER NEEDS.
[2018-11-05] VITALS (39 sets, daily range): BP systolic 93–140; BP diastolic 54–81; Ht 152.4 cm; Wt 55.1 kg
--- NOTE | 2018-11-05 01:00 | NUR ---
PT RESTING WITH EYES CLOSED, VSS. NO SIGN OF DISTRESS.
--- NOTE | 2018-11-05 03:00 | NUR ---
REASSESSMENT PER FLOWSHEET. PT R WRIST IV SITE TENDER - D/C'D INTACT. NEW 20GA PIV SITED TO L FA X 2 STICKS - IFVS RESUMED. NO OTHER CHANGES. PT DENIES NEEDS. ALARMS ON AND C/L IN REACH.
[2018-11-05] MEDS ORDERED: AMBIEN5 MG PO (04:39)
[2018-11-05] MEDS ORDERED: NORVASC2.5 MG PO (04:40)
[2018-11-05] MEDS ORDERED: CHLORTHALIDONE25 MG PO (04:40)
[2018-11-05] MEDS ORDERED: TRESIBA FL100 UNIT/1 SC (04:42)
[2018-11-05] MEDS ORDERED: NITROSTAT0.4 MG SL (04:43)
--- NOTE | 2018-11-05 05:00 | NUR ---
PRE-OP BATH AND HIBICLENSE WIPES DONE. PT VOIDED 350ML CLEAR, YELLOW URINE. NAVID-CARE DONE.
--- NOTE | 2018-11-05 05:40 | NUR ---
PRE-OP MEDS GIVEN. CARDIO NEURO HERE TO PREP EEG. JEWLERY AND COIN BAG SENT TO [facility] PER PT REQUEST.
[2018-11-05 06:30] LABS: HEMATOCRIT 38.6 % (36.0-48.0); HEMOGLOBIN 12.3 g/dL (12-16); MCH 23.4 pg (26.0-34.0); MCHC 31.9 g/dL (31.0-37.0); MCV 73.4 fL (80.0-100.0); MEAN PLATELET VOLUME 9.8 fL (7.4-10.4); PLATELET COUNT 302 10x3/uL (130-400); RBC 5.26 10x6/uL (4.00-5.40); RDW 15.2 % (11.5-14.5)
--- NOTE | 2018-11-05 06:31 | NUR ---
PT TO OR VIA BED.
--- NOTE | 2018-11-05 07:27 | NUR ---
CELL PHONE IN THE PTS BEDSIDE DRAWER KEEPS GOING OFF. FAMILY AT THE PTS BEDSIDE BUT THE PT IS IN THE OR. RECOMMENDED THE FAMILY TAKE THE CELL PHONE. PTS TITUS FOLD ALREADY IN THE HOSPITAL [facility] AND EXPLAINED THIS TO THE FAMILY.
[2018-11-05 07:53] LABS: ALBUMIN 3.4 g/dL (3.4-5.0); ANION GAP 16.2 mmol/L (8-16); BILIRUBIN - TOTAL 0.19 mg/dL (0.2-1.3); CALCIUM 9.5 mg/dL (8.5-10.1); CARBON DIOXIDE 24.3 mmol/L (21.0-32.0); POTASSIUM - SERUM 3.5 mmol/L (3.5-5.1)
[2018-11-05 08:40] LABS: LYMPHOCYTES 52 % (15-50); MONOCYTES 6 % (2-11); NEUTROPHILS 42 % (40-80); PLATELET ESTIMATE NORMAL; PLATELET MORPHOLOGY NORMAL PLT MORPH
--- NOTE | 2018-11-05 10:28 | NUR ---
1007-REC'D PT BACK TO ICU. NITRO GTT AT 30CC/HR B/P 128/63. HR 90. FSBS 306. INSULIN GTT AT 4U/H. FAMILY AT BS. DR DAVALOS AT BS. CXR COMPLETE. O2 TITRATED FROM SIMPLE MASK TO 4LNC. PT AWAKE AND ORIENTED. VISITING WITH FAMILY.
[2018-11-05 13:41] LABS: APPEARANCE SL CLDY (CLEAR); BILIRUBIN NEGATIVE (NEGATIVE); COLOR YELLOW (YELLOW); GLUCOSE 250 mg/dL (NEGATIVE); KETONE NEGATIVE (NEGATIVE); NITRITE NEGATIVE (NEGATIVE); PROTEIN NEGATIVE (NEGATIVE); SPECIFIC GRAVITY 1.015 (1.005-1.020); UROBILINOGEN NORMAL (NORMAL)
[2018-11-05 13:42] LABS: BACTERIA MODERATE /hpf (NONE SEEN); EPITHELIAL CELLS 0-5 /hpf (0-5); MUCUS <1+ /lpf (NONE SEEN); RED CELLS - URINE 0-5 /hpf (0-5); YEAST >1+ WITH HYPHAE /hpf (NONE SEEN)
--- NOTE | 2018-11-05 18:37 | NUR ---
1230-PT TAKING IN CL DIET WITH OUT DIFFICULTY. NO NAUSEA NOTED. INSULIN GTT INFUSING PER INTENSIVE INSULIN PROTOCOL. NITRO GTT AT 10CC/HR TO KEEP SBO 90 TO 140 ORDERED.
--- NOTE | 2018-11-05 18:39 | NUR ---
1400-INTENSIVE INSULIN GTT PROTOCOL AND Q1H FSBS CONTINUE. NITRO GTT AT 5CC/HR. PT ALERT AND ORIENTED. NO NEURO DEFICITS.
--- NOTE | 2018-11-05 18:40 | NUR ---
1630- MEAL TRAY SERVED AND PT FEEDS SELF WITH OUT PROBLEMS. INSULIN PROTOCOL GTT USED. NITRO TITRATED TO 7CC/HR TO KEEP SBP BELOW 140.
--- NOTE | 2018-11-05 19:15 | NUR ---
REC'D TO CARE, CAREER TECHNICAL SUPERVISOR PER FLOWSHEET. PT AWAKE AND ORIENTED, NEURO WNL. VSS. IVFS INFUSING TO L DLSC, DSG C/D/I - SEE FLOWSHEET, WILL TITRATE GTTS PER MD ORDERS. R NECK DSG C/D/I. CRITICORE BLAND PATENT CLEAR, YELLOW URINE WITH SEDIMENT NOTED. B/L AKA NOTED. PT DENIES NEEDS. ALARMS ON AND C/L IN REACH.
--- NOTE | 2018-11-05 20:50 | NUR ---
DR. DAVALOS NOTIFIED OF INSULIN GTT AT 18 UN/HR. STATUS REPORT GIVEN. NO NEW ORDERS.
--- NOTE | 2018-11-05 21:00 | NUR ---
DR. DAVALOS UPDATED ON PT, ARGATROBAN GTT RATE, AND NOTIFIED OF PT WITH SOB WHEN TRYING TO VOID AND PT REQUESTS BLAND. NEW ORDER FOR BLAND PLACEMENT REC'D.
--- NOTE | 2018-11-05 22:13 | NUR ---
BATH AND LINEN CHANGE DONE. NAVID-CARE DONE. PT REPOSITIONED UP IN BED TO R WITH PILLOWS. VSS. PT DENIES NEEDS. ALARMS ON AND C/L IN REACH.
--- NOTE | 2018-11-05 23:24 | NUR ---
REASSESSMENT PER FLOWSHEET, NO ACUTE CHANGES. NEURO WNL. R NECK SITE C/D/I. PT DENIES NEEDS. VSS. C/L IN REACH.
[2018-11-06] VITALS (22 sets, daily range): BP systolic 92–130; BP diastolic 54–84
--- NOTE | 2018-11-06 01:19 | NUR ---
PT TO L SIDE WITH MINIMAL ASSIST. VSS. BACK TO REST EASILY.
--- NOTE | 2018-11-06 03:05 | NUR ---
REASSESSMENT PER FLOWSHEET, NO ACUTE CHANGES. PT REPOSITIONED UP IN BED. NEURO WNL. R NECK SITE C/D/I WITH MINIMAL SWELLING NOTED. PT DENIES NEEDS. C/L IN REACH.
--- NOTE | 2018-11-06 05:00 | NUR ---
PT GIVEN DIET SPRITE AND JERROD MCGEE WITH STACI LE.
[2018-11-06 05:58] LABS: BASOPHILS 0.2 % (0-2); EOSINOPHILS 0.1 % (0-7); HEMATOCRIT 31.9 % (36.0-48.0); IMMATURE GRANULOCYTES 0.2 % (0-5); LYMPHOCYTES 36.9 % (15-50); MCH 23.1 pg (26.0-34.0); MCHC 30.7 g/dL (31.0-37.0); MCV 75.1 fL (80.0-100.0); MEAN PLATELET VOLUME 9.3 fL (7.4-10.4); MONOCYTES 6.6 % (2-11); PLATELET COUNT 251 10x3/uL (130-400); RBC 4.25 10x6/uL (4.00-5.40); RDW 15.7 % (11.5-14.5)
[2018-11-06 06:02] LABS: HEMOGLOBIN 9.8 g/dL (12-16); WBC 9.9 10x3/uL (4.8-10.8)
[2018-11-06 06:15] LABS: ALBUMIN 2.7 g/dL (3.4-5.0); ANION GAP 13.5 mmol/L (8-16); BILIRUBIN - TOTAL 0.21 mg/dL (0.2-1.3); CALCIUM 8.1 mg/dL (8.5-10.1); CARBON DIOXIDE 24.7 mmol/L (21.0-32.0); CREATININE - SERUM 0.9 mg/dL (0.6-1.3); POTASSIUM - SERUM 3.2 mmol/L (3.5-5.1); PROTEIN - SERUM 6.8 g/dL (6.4-8.2)
--- NOTE | 2018-11-06 09:31 | NUR ---
IV INSULIN PROTOCOL USED FOR CONTINOUS IV INSULIN INFUSION.
--- NOTE | 2018-11-06 11:33 | NUR ---
BLAND CATH DCD. ART LINE R WRIST DCD. PRESSURE HELD AND DSNG APPLIED. NO BLEED, NO HEMATOMA. UP TO CHAIR WITH PT. DR DAVALOS HERE. CONTINUE TO TITRATE INSULIN GTT PER PROTOCOL.
--- NOTE | 2018-11-06 14:48 | NUR ---
REC'D ORDERS TO CONSULT DR HERNANDEZ. PAGED DR HERNANDEZ AND REC'D CALL BACK. REPORTED CONSULT TO DR HERNANDEZ AND REC'D ORDERS.
--- NOTE | 2018-11-06 14:49 | NUR ---
BS 118. INTENSIVE INSULIN PROTOCOL USED ORDERED. INSULIN OFF PER ORDERS. 1 HR LATER FSBS 252. INSULIN GTT PER PROTOCOL USED.
--- NOTE | 2018-11-06 14:52 | NUR ---
PT BECOMING LOUD AND YELLING AT THIS RN AND STATES" TO MANY CUPS LAYING AROUND." BED SIDE TABLE CLEARED OFF. FRESH WATER AND SNACKS GIVEN REQUESTED. PT CONTINUES TO C/O ROOM "NASTY."
--- NOTE | 2018-11-06 16:54 | NUR ---
DR VUONG HERE. REC'D NEW ORDERS. DCD IV INSULIN AND STARTED SSI SCALE. PT TALKING ON PHONE AND YELLING. REFUSING SALINE FLUSH AFTER DCD IV INFUSION.
--- NOTE | 2018-11-06 17:03 | MORECARE ---
CASE MANAGEMENT DISCHARGE SUMMARY PATIENT: SARAH ROBERTS JOHN UNIT: [id number] ADM DATE: 11/04/18 AGE: 63 : 57 SEX: F ROOM/BED: [facility] AUTHOR: EVELYNE RAND PHYSICIAN: REFERRING PHYSICIAN: BRITTON DAVALOS MD DATE OF SERVICE: 11/06/18 Discharge Plan Patient Name: SARAH ROBERTS Facility: [facility]:[place] : 1955 Planned Disposition: Home Anticipated Discharge Date: Discharge Date: Expected LOS: Initial Reviewer: [email or web address] Initial Review Date: 11/06/2018 Generated: 11/06/18 6:03 pm Patient Name: SARAH ROBERTS Page [phone] at 1703 All edits/amendments must be made on the electronic document DICTATION DATE: 11/06/181702 BLANKET CUTTING MACHINE OPERATOR: LIN 11/06/181702 RPT#: [id number] DC DATE: STATUS: ADM IN [facility] [address] [place] [address] END OF REPORT
--- NOTE | 2018-11-06 17:11 | MORECARE ---
CASE MANAGEMENT DISCHARGE SUMMARY PATIENT: SARAH ROBERTS JOHN UNIT: [id number] ADM DATE: 11/04/18 AGE: 63 : 57 SEX: F ROOM/BED: [facility] AUTHOR: EVELYNE RAND PHYSICIAN: REFERRING PHYSICIAN: BRITTON DAVALOS MD DATE OF SERVICE: 11/06/18 Discharge Plan Patient Name: SARAH ROBERTS Facility: [facility]:[place] : 1955 Planned Disposition: Home Anticipated Discharge Date: Discharge Date: Expected LOS: Initial Reviewer: [email or web address] Initial Review Date: 11/06/2018 Generated: 11/06/18 6:11 pm DCPIA - Discharge Planning Initial Assessment Updated by [email or web address]: Kamryn Higgins on 11/06/18 5:05 pm * Is the patient Alert and Oriented? Yes * How many steps to enter\exit or inside your home? * PCP STAN MUKHERJEE * Pharmacy [facility]. * Preadmission Environment Home Alone * ADLs Independent * Other Equipment HOME 02 / PORTABLE, ELECTRIC W/C, MANUAL W/C, SLIDE BOARD, OVER COMMODE CHAIR, SHOWER CHAIR, --DME IS [facility] [phone] * List name and contact numbers for known caregivers / representatives who currently or will assist patient after discharge: NYASIA ROSALES - DAUGHTER- [phone] * Verbal permission to speak to the caregivers and representatives has been obtained from the patient. N/A * Community resources currently utilized Home Health * Please name any agencies selected above. [facility] * Additional services required to return to the preadmission environment? No * Can the patient safely return to the preadmission environment? Yes * Has this patient been hospitalized within the prior 30 days at any hospital? No Last DP export: 11/06/18 4:03 pm Patient Name: SARAH ROBERTS Page [phone] at 1711 All edits/amendments must be made on the electronic document DICTATION DATE: 11/06/181709 CAFE SERVER: LIN 11/06/181709 RPT#: [id number] DC DATE: STATUS: ADM IN [facility] [address] [place] [address] END OF REPORT
--- NOTE | 2018-11-06 17:26 | MORECARE ---
CASE MANAGEMENT DISCHARGE SUMMARY PATIENT: SARAH ROBERTS JOHN UNIT: [id number] ADM DATE: 11/04/18 AGE: 63 : 57 SEX: F [facility] AUTHOR: GIORGI,DOC PHYSICIAN: REFERRING PHYSICIAN: BRITTON DAVALOS MD DATE OF SERVICE: 11/06/18 Discharge Plan Patient Name: SARAH ROBERTS Facility: [facility]:[place] : 1955 Planned Disposition: Home Anticipated Discharge Date: Discharge Date: Expected LOS: Initial Reviewer: [email or web address] Initial Review Date: 11/06/2018 Generated: 11/06/18 6:25 pm Comments DCP- Discharge Planning Updated by [email or web address]: Kamryn Higgins on 11/06/18 4:[address] Patient Name: SARAH ROBERTS Admission Status: Elective Accout number: [id number] Admission Date: 11-04-2018 : 1955 Admission Diagnosis:OCCLUSION AND STENOSIS OF RIGHT CAROTID ARTERY Attending: BRITTON DAVALOS Current LOS: 2 Anticipated DC Date: Planned Disposition: Home Primary Insurance: MEDICARE A & B Discharge Planning Comments: CM met with patient at bedside after explaining CM role and obtaining verbal consent. Patient lives at home alone and plans to return there upon discharge. Patient feels this would be a safe discharge. CM discussed availability / needs of home health and medical equipment. Patient was requesting new slide board, smaller portable oxygen, and tippers for manual wheelchair. CM contacted [facility] [phone]. They stated that patient just received a slide board 04/2018, and she had got manual w/c 2015 and electric w/c 2014. DME stated that if she got tippers for manual chair that medicare may come back and charge her for that chair. Medicare usually will not pay for manual after they have received an electric wheelchair. Tippers are 125.00 for set. CM contacted [facility] [phone] for transportation home on Sunday11/08/18 order # [id number]. [facility] will call before arrival to CVU nurses station. CM will continue to follow and assist as needed with discharge planning / needs. Machine Tool Dresser: Kamryn Higgins DCPIA - Discharge Planning Initial Assessment Updated by [email or web address]: Kamryn Higgins on 11/06/18 5:05 pm * Is the patient Alert and Oriented? Yes * How many steps to enter\exit or inside your home? * PCP STAN MUKHERJEE * Pharmacy [facility]. * Preadmission Environment Home Alone * ADLs Independent * Other Equipment HOME 02 / PORTABLE, ELECTRIC W/C, MANUAL W/C, SLIDE BOARD, OVER COMMODE CHAIR, SHOWER CHAIR, --DME IS [facility] [phone] * List name and contact numbers for known caregivers / representatives who currently or will assist patient after discharge: NYASIA ROSALES - DAUGHTER- [phone] * Verbal permission to speak to the caregivers and representatives has been obtained from the patient. N/A * Community resources currently utilized Home Health * Please name any agencies selected above. [facility] * Additional services required to return to the preadmission environment? No * Can the patient safely return to the preadmission environment? Yes * Has this patient been hospitalized within the prior 30 days at any hospital? No Last DP export: 11/06/18 4:11 pm Patient Name: SARAH ROBERTS Page [phone] at 1726 All edits/amendments must be made on the electronic document DICTATION DATE: 11/06/181724 SUPERVISING LIBRARIAN: LIN 11/06/181724 RPT#: [id number] DC DATE: STATUS: ADM IN [facility] [address] [place] [address] END OF REPORT
--- NOTE | 2018-11-06 19:40 | NUR ---
OOB TO BATHROOM INDEPENDENTLY. VOIDED THEN BACK TO BED. [facility] DELIVERED HER DINNER TRAY. FSBS 346 PRIOR TO EATING.
--- NOTE | 2018-11-06 21:20 | NUR ---
PT REFUSED ALL HER PM MEDS EXCEPT NEURONTIN AND AMBIEN. STATES THAT SHE DOENT NEED THEM.
[2018-11-07] VITALS (19 sets, daily range): BP systolic 92–140; BP diastolic 51–112
--- NOTE | 2018-11-07 05:00 | NUR ---
PT OOB AND BATHED AND CHANGED CLOTHES. BLOOD DRAWN AND SENT TO LAB.
[2018-11-07 05:18] LABS: BASOPHILS 0.2 % (0-2); EOSINOPHILS 1.1 % (0-7); HEMATOCRIT 35.8 % (36.0-48.0); HEMOGLOBIN 11.1 g/dL (12-16); IMMATURE GRANULOCYTES 0.2 % (0-5); MCH 23.3 pg (26.0-34.0); MCV 75.2 fL (80.0-100.0); MEAN PLATELET VOLUME 9.6 fL (7.4-10.4); MONOCYTES 6.3 % (2-11); NEUTROPHILS 44.2 % (40-80); PLATELET COUNT 281 10x3/uL (130-400); RBC 4.76 10x6/uL (4.00-5.40); RDW 16.2 % (11.5-14.5); WBC 9.3 10x3/uL (4.8-10.8)
[2018-11-07 05:33] LABS: ALBUMIN 3.1 g/dL (3.4-5.0); ANION GAP 12.9 mmol/L (8-16); BILIRUBIN - TOTAL 0.18 mg/dL (0.2-1.3); CARBON DIOXIDE 29.2 mmol/L (21.0-32.0); POTASSIUM - SERUM 3.1 mmol/L (3.5-5.1); PROTEIN - SERUM 7.7 g/dL (6.4-8.2)
--- NOTE | 2018-11-07 10:02 | NUR ---
NUTRITION F/U CHART REVIEWED. PT UP TO POWER CHAIR, OUT OF ROOM. TOLRATING DIABETIC DIET PER NURSING REPORT. RD FOLLOWING
--- NOTE | 2018-11-07 11:10 | NUR ---
PT UP IN WHEELCHAIR WANDERING AROUND ROOM.
--- NOTE | 2018-11-07 17:26 | NUR ---
PT UP IN PERSONAL WHEELCHAIR. DINNER HAS BEEN EATEN. PT WATCHING TELEVISION.
--- NOTE | 2018-11-07 19:00 | NUR ---
REPORT RECEIVED AND ASSESSMENT COMPLETED. SEE FLOWSHEET FOR FULL DETAILS. VSS. WILL MONITOR THROUGHOUT SHIFT.
--- NOTE | 2018-11-07 22:58 | NUR ---
PT RESTING IN ROOM QUIETLY. VSS. WILL MONITOR
[2018-11-08] VITALS (8 sets, daily range): BP systolic 91–124; BP diastolic 61–84
--- NOTE | 2018-11-08 01:00 | NUR ---
NO CHANGES IN PT STATUS AT THIS TIME. VSS. WILL CONITUE TO MONITOR
--- NOTE | 2018-11-08 03:11 | NUR ---
PT REMAINS RESTING IN ROOM VSS. BED IN LOW POSITION CALL LIGHT IN REACH. WILL MONITOR
--- NOTE | 2018-11-08 09:55 | NUR ---
PT BEING DISCHARGED . REQUESTING SIRENA AND ALISTAIR FROM [facility]. CALLED [facility] CONFIRMED THEY ARE IN POSSESSION OF PT BELONGINGS AND WILL GET THEM UP TO PATIENT SHORTLY
--- NOTE | 2018-11-08 10:10 | NUR ---
PT BELONGINGS OPENED AND VERIFIED BY HERSELF AND NURSE. RETURNED ALL AND ARE NOW IN HER POSSESSION.
--- NOTE | 2018-11-08 12:20 | NUR ---
CVL REMOVED. TIP INTACT. NO BLEEDING.
--- NOTE | 2018-11-08 14:25 | MORECARE ---
CASE MANAGEMENT DISCHARGE SUMMARY PATIENT: SARAH ORBERTS JOHN UNIT: [id number] ADM DATE: 11/04/18 AGE: 63 : 57 SEX: F ROOM/BED: [facility] AUTHOR: GIORGI,DOC PHYSICIAN: REFERRING PHYSICIAN: BRITTON DAVALOS MD DATE OF SERVICE: 11/08/18 Discharge Plan Patient Name: SARAH ROBERTS Facility: [facility]:[place] : 1955 Planned Disposition: Home Anticipated Discharge Date: Discharge Date: Expected LOS: Initial Reviewer: [id number] Initial Review Date: 11/06/2018 Generated: 11/08/18 3:25 pm Comments DCP- Discharge Planning Updated by [id number]: Kamryn Higgins on 11/08/18 1:[address] Patient Name: SARAH ROBERTS Encounter No: [id number] : 1955 Primary Insurance: MEDICARE A & B Anticipated DC Date: Planned Disposition: Home External Planned Provider: : Feliberto/Felisa CELAYA EXPLAINED AND SERVED 11/08/18 @ 1209. CM has contacted [facility] several times today since they haven't arrived yet to fruit or nut picker patient. DCP follow-up note: Patient and family in agreement with discharge plan. No changes to plan. Case management will follow and assist as needed. Kamryn Higgins DCP- Discharge Planning Updated by [email or web address]: Kamryn Higgins on 11/06/18 4:[address] Patient Name: SARAH ROBERTS Admission Status: Elective Accout number: [id number] Admission Date: 11-04-2018 : 1955 Admission Diagnosis:OCCLUSION AND STENOSIS OF RIGHT CAROTID ARTERY Attending: BRITTON DAVALOS Current LOS: 2 Anticipated DC Date: Planned Disposition: Home Primary Insurance: MEDICARE A & B Discharge Planning Comments: CM met with patient at bedside after explaining CM role and obtaining verbal consent. Patient lives at home alone and plans to return there upon discharge. Patient feels this would be a safe discharge. CM discussed availability / needs of home health and medical equipment. Patient was requesting new slide board, smaller portable oxygen, and tippers for manual wheelchair. CM contacted [facility] [phone]. They stated that patient just received a slide board 04/2018, and she had got manual w/c 2015 and electric w/c 2014. DME stated that if she got tippers for manual chair that medicare may come back and charge her for that chair. Medicare usually will not pay for manual after they have received an electric wheelchair. Tippers are 125.00 for set. CM contacted [facility] [phone] for transportation home on Sunday11/08/18 order # [id number]. [facility] will call before arrival to CVICU nurses station. CM will continue to follow and assist as needed with discharge planning / needs. Batch Heat Treat Operator: Kamryn CASTANONA - Discharge Planning Initial Assessment Updated by [email or web address]: Kamryn Higgins on 11/06/18 5:05 pm * Is the patient Alert and Oriented? Yes * How many steps to enter\exit or inside your home? * PCP STAN MUKHERJEE * Pharmacy [facility]. * Preadmission Environment Home Alone * ADLs Independent * Other Equipment HOME 02 / PORTABLE, ELECTRIC W/C, MANUAL W/C, SLIDE BOARD, OVER COMMODE CHAIR, SHOWER CHAIR, --DME IS [facility] [phone] * List name and contact numbers for known caregivers / representatives who currently or will assist patient after discharge: NYASIA ROSALES - DAUGHTER- [phone] * Verbal permission to speak to the caregivers and representatives has been obtained from the patient. N/A * Community resources currently utilized Home Health * Please name any agencies selected above. [facility] * Additional services required to return to the preadmission environment? No * Can the patient safely return to the preadmission environment? Yes * Has this patient been hospitalized within the prior 30 days at any hospital? No Coverage Notice Reviewer: [id number] - Kamryn Higgins Notice Issued Date-Time: 11/08/2018 12:09 Notice Type: IM Discharge Notice Notice Delivered To: Patient Relationship to Patient: Self Sprinkler Irrigation Equipment Mechanic Name: Delivery Method: HAND - Hand Delivered Rashmi Days: Prior Verbal Notification: Recipient Understood Notice: Yes Recipient Signature: Yes Med Rec Note Co-signed by Attending: Coverage Notice Comment: Last DP export: 11/06/18 4:25 pm Patient Name: SARAH ROBERTS Page 40900 at 1425 All edits/amendments must be made on the electronic document DICTATION DATE: 11/08/181424 ADVOCACY DIRECTOR: LIN 11/08/181424 RPT#: [id number] DC DATE: STATUS: ADM IN [facility] [address] [place] [address] END OF REPORT
--- NOTE | 2018-11-08 16:15 | NUR ---
EXCORTED TO FRONT ENTRANCE FOR DISCHARGE. HOME VIA [facility] BUS
--- NOTE | 2018-11-11 08:32 | MORECARE ---
CASE MANAGEMENT DISCHARGE SUMMARY PATIENT: SARAH ROBERTS JOHN UNIT: [id number] ADM DATE: 11/04/18 AGE: 63 : 57 SEX: F ROOM/BED: [facility] AUTHOR: GIORGI,DOC PHYSICIAN: REFERRING PHYSICIAN: BRITTON DAVALOS MD DATE OF SERVICE: 11/11/18 Discharge Plan Patient Name: SARAH ROBERTS Facility: [facility]:[place] : 1955 Planned Disposition: Home Anticipated Discharge Date: Discharge Date: 11/08/2018 Expected LOS: Initial Reviewer: [email or web address] Initial Review Date: 11/06/2018 Generated: 11/11/18 9:32 am Comments DCP- Discharge Planning Updated by [email or web address]: Kamryn Higgins on 11/08/18 1:[address] Patient Name: SARAH ROBERTS Encounter No: [id number] : 1955 Primary Insurance: MEDICARE A & B Anticipated DC Date: Planned Disposition: Home External Planned Provider: : Feliberto/Felisa CELAYA EXPLAINED AND SERVED 11/08/18 @ 1209. CM has contacted [facility] bus several times today since they haven't arrived yet to leaf size picker patient. DCP follow-up note: Patient and family in agreement with discharge plan. No changes to plan. Case management will follow and assist as needed. Kamryn Higgins DCP- Discharge Planning Updated by [email or web address]: Kamryn Higgins on 11/06/18 4:[address] Patient Name: SARAH ROBERTS Admission Status: Elective Accout number: [id number] Admission Date: 11-04-2018 : 1955 Admission Diagnosis:OCCLUSION AND STENOSIS OF RIGHT CAROTID ARTERY Attending: BRITTON DAVALOS Current LOS: 2 Anticipated DC Date: Planned Disposition: Home Primary Insurance: MEDICARE A & B Discharge Planning Comments: CM met with patient at bedside after explaining CM role and obtaining verbal consent. Patient lives at home alone and plans to return there upon discharge. Patient feels this would be a safe discharge. CM discussed availability / needs of home health and medical equipment. Patient was requesting new slide board, smaller portable oxygen, and tippers for manual wheelchair. CM contacted [facility] [phone]. They stated that patient just received a slide board 04/2018, and she had got manual w/c 2015 and electric w/c 2014. DME stated that if she got tippers for manual chair that medicare may come back and charge her for that chair. Medicare usually will not pay for manual after they have received an electric wheelchair. Tippers are 125.00 for set. CM contacted [facility] [phone] for transportation home on Sunday11/08/18 order # [id number]. [facility] will call before arrival to CVICU nurses station. CM will continue to follow and assist as needed with discharge planning / needs. Solutions Architect: Kamryn BARRERA - Discharge Planning Initial Assessment Updated by [email or web address]: Kamryn Higgins on 11/06/18 5:05 pm * Is the patient Alert and Oriented? Yes * How many steps to enter\exit or inside your home? * PCP STAN MUKHERJEE * Pharmacy [facility]. * Preadmission Environment Home Alone * ADLs Independent * Other Equipment HOME 02 / PORTABLE, ELECTRIC W/C, MANUAL W/C, SLIDE BOARD, OVER COMMODE CHAIR, SHOWER CHAIR, --DME IS [facility] [phone] * List name and contact numbers for known caregivers / representatives who currently or will assist patient after discharge: NYASIA ROSALES - DAUGHTER- [phone] * Verbal permission to speak to the caregivers and representatives has been obtained from the patient. N/A * Community resources currently utilized Home Health * Please name any agencies selected above. [facility] * Additional services required to return to the preadmission environment? No * Can the patient safely return to the preadmission environment? Yes * Has this patient been hospitalized within the prior 30 days at any hospital? No Coverage Notice Reviewer: [id number] - Kamryn Higgins Notice Issued Date-Time: 11/08/2018 12:09 Notice Type: IM Discharge Notice Notice Delivered To: Patient Relationship to Patient: Self Manager Programming Name: Delivery Method: HAND - Hand Delivered Rashmi Days: Prior Verbal Notification: Recipient Understood Notice: Yes Recipient Signature: Yes Med Rec Note Co-signed by Attending: Coverage Notice Comment: Last DP export: 11/08/18 1:25 pm Patient Name: SARAH ROBERTS Page 20661 at 0832 All edits/amendments must be made on the electronic document DICTATION DATE: 11/11/18831 CARE ASSOCIATE: LIN 11/11/18831 RPT#: [id number] DC DATE:11/08/18 STATUS: DIS IN [facility] [address] [place] [address] END OF REPORT
== END 2018-11-08 16:15 | disposition home or self-care (01) | DRG 39 ==
LOC: D.CVICU 14:31 → D.SDCHOLD 11-05 07:30 → D.CVICU 11-08 16:15
PROVIDERS: Family Medicine; ADMIT Internal Medicine Cardiovascular Disease; ATTEND Internal Medicine Cardiovascular Disease
PROC: 03CK0ZZ Extirpation of Matter from Right Internal Carotid Artery, Open Approach (ICD-10-PCS; principal; 2018-11-04)
PROC: 03UK0JZ Supplement Right Internal Carotid Artery with Synthetic Substitute, Open Approach (ICD-10-PCS; 2018-11-04)
DX: I65.21 Occlusion and stenosis of right carotid artery (principal); E03.9 Hypothyroidism, unspecified; J45.909 Unspecified asthma, uncomplicated; I10 Essential (primary) hypertension; E11.65 Type 2 diabetes mellitus with hyperglycemia; Z89.612 Acquired absence of left leg above knee; Z89.611 Acquired absence of right leg above knee; I48.0 Paroxysmal atrial fibrillation; Z79.4 Long term (current) use of insulin

== ENCOUNTER → 2019-07-10 11:21 | Outpatient (CLI) | payer MEDICARE ==
[2018-11-05 09:06] VITALS: BMI 24.6
[~2019-07-10 11:21] MED LIST changes: +AMBIEN5 MG PO; +CHLORTHALIDONE25 MG PO; +NITROSTAT0.4 MG SL; +NORVASC2.5 MG PO; +PLAVIX75 MG PO; +TRESIBA FL100 UNIT/1 SC
== END | disposition home or self-care (01) ==
LOC: D.US 11:21
PROVIDERS: ATTEND Internal Medicine Cardiovascular Disease
DX: I65.23 Occlusion and stenosis of bilateral carotid arteries (principal)

== ENCOUNTER 2019-07-28 15:18 | Inpatient (IN) | payer MEDICARE ==
[~2019-07-28] VITALS: Ht 152.4 cm; Wt 63.9 kg
[2019-07-28 16:44] LABS: HEMATOCRIT 42.2 % (36.0-48.0); HEMOGLOBIN 13.3 g/dL (12-16); MCH 24.6 pg (26.0-34.0); MCHC 31.5 g/dL (31.0-37.0); MEAN PLATELET VOLUME 9.4 fL (7.4-10.4); PLATELET COUNT 328 10x3/uL (130-400); RBC 5.41 10x6/uL (4.00-5.40); RDW 14.1 % (11.5-14.5); WBC 8.5 10x3/uL (4.8-10.8)
[2019-07-28] MEDS ORDERED: ELIQUIS5 MG PO (16:54)
[2019-07-28 16:55] LABS: APTT 27.1 SECONDS (22.8-39.4); INR 0.98 (0.85-1.17); PROTIME 12.5 SECONDS (11.6-15.0)
[2019-07-28] MEDS ORDERED: HYDROCODON-ACE1 EA10 PO (16:55)
[2019-07-28] MEDS ORDERED: LIPITOR20 MG PO (16:55)
[2019-07-28 17:02] LABS: ANION GAP 14.3 mmol/L (8-16); CALCIUM 10.9 mg/dL (8.5-10.1); CARBON DIOXIDE 26.5 mmol/L (21.0-32.0); CREATININE - SERUM 0.9 mg/dL (0.6-1.3); POTASSIUM - SERUM 3.8 mmol/L (3.5-5.1)
[2019-07-28 17:08] LABS: ALBUMIN 3.8 g/dL (3.4-5.0); BILIRUBIN - TOTAL 0.24 mg/dL (0.2-1.3); PROTEIN - SERUM 8.1 g/dL (6.4-8.2)
[2019-07-28 17:32] LABS: EOSINOPHILS 2 % (0-7); LYMPHOCYTES 56 % (15-50); MONOCYTES 4 % (2-11); NEUTROPHILS 38 % (40-80); PLATELET ESTIMATE NORMAL
--- NOTE | 2019-07-28 18:04 | NUR ---
ARRIVE TO ROOM VIA HOME ELECTRIC WHEELCHAIR ACCOMPANIED BY ADMISSION STAFF. ALERT AND ORIENTED X4. TRANSFERS TO BED WITHOUT ASSISTANCE. NO SCDs. BILATERAL AKA. TAKES ELIQUIS. SINUS TACH 114 ON TELEMETRY. EKG COMPLETE ON CHART. IV SITED RT FA 20G SUCCESSFUL X1 ATTEMPT. DENIES SOB OR PAIN. TAKEN TO CT VIA WHEELCHAIR. CONTINUE ADMISSION PROCESS WHEN RETURN TO ROOM. CONTINUE PLAN OF CARE AND SAFETY PRECAUTIONS.
[2019-07-28 18:07] VITALS: BP 136/89; BMI 74.7
[2019-07-28 20:37] VITALS: BP 119/67
[2019-07-29 00:30] VITALS: BP 99/66
[2019-07-29 04:32] VITALS: BP 108/77
[2019-07-29 06:04] LABS: BASOPHILS 0.4 % (0-2); EOSINOPHILS 2.1 % (0-7); HEMATOCRIT 39.1 % (36.0-48.0); HEMOGLOBIN 11.8 g/dL (12-16); IMMATURE GRANULOCYTES 0.1 % (0-5); LYMPHOCYTES 47.1 % (15-50); MCH 23.9 pg (26.0-34.0); MCHC 30.2 g/dL (31.0-37.0); MCV 79.1 fL (80.0-100.0); MEAN PLATELET VOLUME 9.7 fL (7.4-10.4); MONOCYTES 4.9 % (2-11); NEUTROPHILS 45.4 % (40-80); PLATELET COUNT 337 10x3/uL (130-400); RBC 4.94 10x6/uL (4.00-5.40); RDW 14.2 % (11.5-14.5); WBC 7.8 10x3/uL (4.8-10.8)
[2019-07-29 06:27] LABS: ALBUMIN 3.3 g/dL (3.4-5.0); ANION GAP 13.8 mmol/L (8-16); BILIRUBIN - TOTAL 0.27 mg/dL (0.2-1.3); CALCIUM 9.4 mg/dL (8.5-10.1); CREATININE - SERUM 1.3 mg/dL (0.6-1.3); POTASSIUM - SERUM 3.8 mmol/L (3.5-5.1); PROTEIN - SERUM 7.3 g/dL (6.4-8.2)
--- NOTE | 2019-07-29 07:20 | NUR ---
RECIEVE REPORT. ALERT AND ORIENTED X4. TAKEN TO MRI. CONTINUE PLAN OF CARE AND SAFETY PRECAUTIONS.
[2019-07-29 08:16] VITALS: BP 103/75
[2019-07-29 10:55] VITALS: BMI 27.5
[2019-07-29 12:11] VITALS: BP 124/75
[2019-07-29 12:11] LABS: APPEARANCE CLOUDY (CLEAR); BACTERIA MODERATE /hpf (NEGATIVE); BILIRUBIN NEGATIVE (NEGATIVE); COLOR YELLOW (YELLOW); EPITHELIAL CELLS 0-5 /hpf (0-5); GLUCOSE 500 mg/dL (NEGATIVE); KETONE NEGATIVE (NEGATIVE); MUCUS <1+ /lpf (NONE SEEN); NITRITE NEGATIVE (NEGATIVE); PROTEIN TRACE mg/dL (NEGATIVE); RED CELLS - URINE 0-5 /hpf (0-5); SPECIFIC GRAVITY 1.015 (1.005-1.020); UROBILINOGEN NORMAL (NORMAL); WHITE CELLS - URINE 25-50 /hpf (NEGATIVE); YEAST >1+ WITH HYPHAE /hpf (NONE SEEN)
[2019-07-29 15:47] VITALS: BP 111/75
--- NOTE | 2019-07-29 17:32 | NUR ---
ALERT AND ORIENTED X4. SITTING UP IN BED. ATTEMPT TO COLLECT UA VIA IN AND OUT CATH UNSUCCESSFUL. PATIENT STATES, "OH I JUST WENT TO THE RESTROOM." EXPLAIN AGAIN UA ORDERED. INSTRUCT TO CALL WHEN FEELING THE NEED TO VOID. CONTINUE PLAN OF CARE AND SAFETY PRECAUTIONS.
--- NOTE | 2019-07-29 19:30 | NUR ---
REPORT AND INITIAL ROUNDS COMPLETED. PT RESTING IN BED WITH NO DISTRESS. 108 ST PER TELEMETRY. O2 @ 2L/NC WITH NONLABORED RESPIRATIONS. PT TEACHING ON NEXT NEED TO VOID WILL REQUIRE AND IN/OUT CATH FOR A SPECIMEN. PT VOICED UNDERSTANDING. CPOC.
[2019-07-29 20:00] VITALS: BP 110/82
--- NOTE | 2019-07-29 21:14 | NUR ---
BEDTIME MEDS GIVEN. FSBS 319, SLIDING SCALE INSULIN GIVEN. PT EATING BEDTIME SNACK. CALL LIGHT IN REACH. CPOC.
--- NOTE | 2019-07-29 22:44 | NUR ---
BEDTIME MEDS GIVEN. PT RESTING WITH O2 @ 2L/NC. CPOC.
[2019-07-30] VITALS: BP 109/82
--- NOTE | 2019-07-30 01:49 | NUR ---
RESTING WITH EYES CLOSED. 90/SR PER TELEMETRY. HAS NOT NEEDED TO VOID AT THIS TIME. STILL PENDING COLLECTION OF URINE FOR SPECIMEN.
[2019-07-30 04:00] VITALS: BP 114/78
[2019-07-30 06:37] LABS: ANION GAP 16.2 mmol/L (8-16); CALCIUM 9.5 mg/dL (8.5-10.1); CREATININE - SERUM 1.1 mg/dL (0.6-1.3); POTASSIUM - SERUM 4.2 mmol/L (3.5-5.1)
--- NOTE | 2019-07-30 06:38 | NUR ---
IN/OUT CATH TO OBTAIN ORDERED URINE SPECIMEN. SENT TO LAB. PT ALERT/ORIENTED. VERY PLEASANT. AM MEDS GIVEN. CALL LIGHT IN REACH.
[2019-07-30 07:16] LABS: HEMATOCRIT 40.8 % (36.0-48.0); HEMOGLOBIN 12.6 g/dL (12-16); MCH 24.1 pg (26.0-34.0); MCHC 30.9 g/dL (31.0-37.0); MCV 78.2 fL (80.0-100.0); MEAN PLATELET VOLUME 10.4 fL (7.4-10.4); PLATELET COUNT 363 10x3/uL (130-400); RBC 5.22 10x6/uL (4.00-5.40); RDW 14.1 % (11.5-14.5)
--- NOTE | 2019-07-30 07:20 | NUR ---
ASSESSMENT DONE. DENIES NEEDS
[2019-07-30 08:42] VITALS: BP 132/68
[2019-07-30 08:46] LABS: ANISOCYTOSIS OCC; BASOPHILS 2 % (0-2); EOSINOPHILS 2 % (0-7); LYMPHOCYTES 28 % (15-50); MONOCYTES 12 % (2-11); NEUTROPHILS 55 % (40-80); PLATELET ESTIMATE NORMAL; SMUDGE CELLS OCC
[2019-07-30 14:05] VITALS: BP 116/77
--- NOTE | 2019-07-30 16:09 | NUR ---
I have reviewed this patient and I concur with the Shift Assessment completed by the Licensed Practical Nurse today this shift.
[2019-07-30 16:20] VITALS: BP 115/75
--- NOTE | 2019-07-30 19:24 | NUR ---
REPORT RECIEVD AND ROUNDING COMPLETE. PATIENT SITTING UP IN BED, PATIENT STATES SHE HAS NO NEEDS AT THIS TIME. PAITENT SHOWS NO S/SX OF DISTRESS, PATIENT HAS RIGHT FOREARM PIV THAT IS SALINE LOCKED. PATIENT WEARING NASAL CANNULA WITH 02 AT 2L. CALL LIGHT WITH IN REACH AND BED IN LOWEST LOCKED POSITION.
[2019-07-30 20:00] VITALS: BP 123/80
--- NOTE | 2019-07-30 21:27 | NUR ---
RENÉ WOLFE TO INFORM OF PATIENT'S FSBS WAS 503 NO NEW ORDERS, GIVE HUMULIN R PRESCRIBED ON MAR
[2019-07-31] VITALS: BP 118/78
--- NOTE | 2019-07-31 03:06 | NUR ---
I have reviewed this patient and I concur with the Shift Assessment completed by the Licensed Practical Nurse today this shift.
[2019-07-31 04:00] VITALS: BP 122/84
--- NOTE | 2019-07-31 04:28 | NUR ---
PATIENT LAYING IN BED IN LOW FOWLERS WITH EYES CLOSED AND BREATHING SHALLOW AND EVEN. NO DISTRESS NOTED AT THIS TIME. CALL LIGHT WITHIN REACH AND BED IN LOWEST LOCKED POSITION.
[2019-07-31 05:44] LABS: BASOPHILS 0.3 % (0-2); EOSINOPHILS 1.9 % (0-7); HEMOGLOBIN 12.5 g/dL (12-16); IMMATURE GRANULOCYTES 0.2 % (0-5); LYMPHOCYTES 49.6 % (15-50); MCH 24.1 pg (26.0-34.0); MCHC 30.5 g/dL (31.0-37.0); MONOCYTES 6.3 % (2-11); NEUTROPHILS 41.7 % (40-80); PLATELET COUNT 313 10x3/uL (130-400); RBC 5.19 10x6/uL (4.00-5.40); WBC 6.3 10x3/uL (4.8-10.8)
[2019-07-31 05:52] LABS: ANION GAP 14.1 mmol/L (8-16); CALCIUM 9.6 mg/dL (8.5-10.1); CARBON DIOXIDE 28.1 mmol/L (21.0-32.0); CREATININE - SERUM 1.2 mg/dL (0.6-1.3); POTASSIUM - SERUM 4.2 mmol/L (3.5-5.1)
--- NOTE | 2019-07-31 07:25 | NUR ---
ASSESSMENT DONE. DENIES NEEDS
[2019-07-31 09:10] VITALS: BP 102/67
--- NOTE | 2019-07-31 12:28 | NUR ---
I TEXTED ROMEL DE LA O APN R/T STROKE PROTOCOL PER JAMEY DAMIAN CORE MEASURES FOR [employer] COVERAGE TO RESUME AND ORDERS FOR PT/OT. GIVEN APPROVAL FOR BOTH.
[2019-07-31 14:04] VITALS: BP 118/85
[2019-07-31 17:43] VITALS: BP 117/71
--- NOTE | 2019-07-31 19:09 | NUR ---
I have reviewed this patient and I concur with the Shift Assessment completed by the Licensed Practical Nurse today this shift.
[2019-07-31 20:30] VITALS: BP 121/78
[2019-08-01 00:30] VITALS: BP 113/71
--- NOTE | 2019-08-01 02:54 | NUR ---
RESTING WITH EYES CLOSED, RESPERATIONS EVEN, NO S/S DISTRESS NOTED.
[2019-08-01 04:00] VITALS: BP 120/80
[2019-08-01 05:03] LABS: HEMATOCRIT 37.5 % (36.0-48.0); HEMOGLOBIN 11.5 g/dL (12-16); MCH 24.4 pg (26.0-34.0); MCHC 30.7 g/dL (31.0-37.0); MCV 79.4 fL (80.0-100.0); MEAN PLATELET VOLUME 9.6 fL (7.4-10.4); PLATELET COUNT 297 10x3/uL (130-400); RBC 4.72 10x6/uL (4.00-5.40); RDW 14.1 % (11.5-14.5); WBC 7.2 10x3/uL (4.8-10.8)
[2019-08-01 05:37] LABS: ANION GAP 12.2 mmol/L (8-16); CALCIUM 9.3 mg/dL (8.5-10.1); CARBON DIOXIDE 27.3 mmol/L (21.0-32.0)
[2019-08-01 05:50] LABS: POTASSIUM - SERUM 3.5 mmol/L (3.5-5.1)
--- NOTE | 2019-08-01 07:20 | NUR ---
ASSESSMENT DONE. DENIES NEEDS
[2019-08-01 09:00] LABS: EOSINOPHILS 2 % (0-7); LYMPHOCYTES 43 % (15-50); MONOCYTES 9 % (2-11); NEUTROPHILS 46 % (40-80); PLATELET ESTIMATE NORMAL
[2019-08-01 10:13] VITALS: BP 110/69
[2019-08-01 11:00] VITALS: Ht 152.4 cm; Wt 63.9 kg
--- NOTE | 2019-08-01 12:51 | NUR ---
NUTRITION FOLLOW UP: INTERVIEW: Met with patient for DM education with handouts. Patient seemed confused during education. Some of the words she said were hard to understand. Patient recieved many handouts on healthy lifestyle changes and tips for managing DM. Patient fell asleep a couple of times during education. Dietitian questions compliance. DIET: NPO after Midnight PO INTAKE: 93.3% avg x 9 meals WT: 140 lbs BM: BM x 1 (07/31) SIG MEDS: NaCl @ 75 ml/hr, Humalog, Humulin, protonix, SIG LABS: BUN- 19(H), GFR- 72(L), A1c- 14.2 POC Glucose: 310, 466, 413, 425, 503, 586 Goals: Blood Glucose levels >70 and <170 BM q 3 days Stable weight DHS Maintain hydration status GOALS:
[2019-08-01 14:25] VITALS: BP 126/82
--- NOTE | 2019-08-01 15:23 | NUR ---
I have reviewed this patient and I concur with the Shift Assessment completed by the Licensed Practical Nurse today this shift.
--- NOTE | 2019-08-01 16:25 | MORECARE ---
CASE MANAGEMENT DISCHARGE SUMMARY PATIENT: SARAH ROBERTS JOHN UNIT: [id number] ADM DATE: 07/28/19 AGE: 64 : 57 SEX: F ROOM/BED: D.4153 AUTHOR: EVELYNE RAND PHYSICIAN: REFERRING PHYSICIAN: BRITTON DAVALOS MD DATE OF SERVICE: 08/01/19 Discharge Plan Patient Name: SARAH ROBERTS [facility] : 1955 Planned Disposition: Home with Home Health Anticipated Discharge Date: Discharge Date: Expected LOS: Initial Reviewer: [id number] Initial Review Date: 08/01/2019 Generated: 08/01/19 5:24 pm External Providers External Provider: OTHER-OTHER Next Contact Date: 08/04/2019 Service Request Date: Service Type: Resolution: Reviewer: Comments: Coverage Notice Reviewer: [id number] - Hernando Yan Notice Issued Date-Time: 08/01/2019 16:05 Notice Type: Patient Choice Letter Notice Delivered To: Patient Relationship to Patient: Foam Molder Name: Delivery Method: HAND - Hand Delivered Rashmi Days: Prior Verbal Notification: Recipient Understood Notice: Yes Recipient Signature: Yes Med Rec Note Co-signed by Attending: Coverage Notice Comment: [facility] Patient Name: SARAH ROBERTS Page 97281 at 1625 All edits/amendments must be made on the electronic document DICTATION DATE: 08/01/191623 SUPERVISOR PYROTECHNIC LOADING: LIN 08/01/191623 RPT#: [id number] DC DATE: STATUS: ADM IN [facility] [address] [place] [address] END OF REPORT
--- NOTE | 2019-08-01 16:32 | MORECARE ---
CASE MANAGEMENT DISCHARGE SUMMARY PATIENT: SARAH ROBERTS JOHN UNIT: [id number] ADM DATE: 07/28/19 AGE: 64 : 57 SEX: F ROOM/BED: D.4798 AUTHOR: GIORGI,DOC PHYSICIAN: REFERRING PHYSICIAN: BRITTON DAVALOS MD DATE OF SERVICE: 08/01/19 Discharge Plan Patient Name: SARAH ROBERTS Facility: [facility]:[place] : 1955 Planned Disposition: Home with Home Health Anticipated Discharge Date: Discharge Date: Expected LOS: Initial Reviewer: [email or web address] Initial Review Date: 08/01/2019 Generated: 08/01/19 5:32 pm Comments DCP- Discharge Planning Updated by [id number]: Hernando Yan on 08/01/19 3:[address] Patient Name: SARAH ROBERTS Admission Status: Urgent Accout number: [id number] Admission Date: 07-28-2019 : 1955 Admission Diagnosis: Attending: BRITTON DAVALOS Current LOS: 4 Anticipated DC Date: Planned Disposition: Home with Home Health Primary Insurance: MEDICARE A & B PLANNED EXTERNAL PROVIDER: [facility] Discharge Planning Comments: CM MET WITH PT IN ROOM TO DISCUSS DISCHARGE PLANNING AND NEEDS. PT REPORTS LIVING AT HOME ALONE, DEPENDENT ON DAUGHTER WHO IS PAID CAREGIVER FOR 100 HOURS PER MONTH WITH [facility]. PT HAS REQUIRES ASSISTANCE WITH MEDICATION MANAGEMENT AND BATHING. PT HAS HOME AND PORTABLE OXYGEN FROM [employer], ELECTRIC WHEELCHAIR FROM [employer], MANUAL WHEELCHAIR, SLIDE BORAD, SHOEWR CHAIR AND OVER THE COMMODE CHAIR. PT HAS NO HOME HEALTH NOW, BUT THINKS SHE WILL NEED IT AND WANTS [facility] TO [facility]) FOR HOME HEALTH. CM DISCUSSED AVAILABILITY OF HOME HEALTH, REHAB SERVICES AND MEDICAL EQUIPMENT. PT DENIES REHAB PLACEMENT NEEDS, WANTS HOME HEALTH WITH [facility]. CHOICE SIGNED. PT REPORTS SHE WILL NEED CM TO CALL MEDICAID TRANSPORT TO PICK HER UP FOR DISCHARGE HOME. PT HAS ELECTRIC WHEELCHAIR IN ROOM WITH HER. CM CALLED [facility], VERIFIED PT HAS HAD SERVICES WITH THEM IN THE PAST, ANANYA STATES THEY WILL ACCEPT BACK WITH HOME HEALTH ORDERS. TELEPHONE [phone], FAX [phone]. CM TO ARRANGE HOME HEALTH FOR DISCHARGE HOME WITH PHYSICIAN AGREEMENT AND ORDERS. PT WILL NEED MEDICAID TRANSPORTATION THAT IS ONLY AVAILABLE ON WEEKDAYS FOR TRANSPORTATION HOME. Station Inspector: Hernando Yan INPIA - Discharge Planning Initial Assessment Updated by [email or web address]: Hernando Yan on 08/01/19 4:26 pm * Is the patient Alert and Oriented? Yes * How many steps to enter\exit or inside your home? NONE * PCP DR. STAN [place]ENNA[place] * [facility] * Preadmission Environment Home Alone * ADLs Partial Dependent * Partial ADLs (Assistance needed) Bathing Medication Management * Equipment Other Oxygen Power Chair or Electric Scooter Shower Chair Wheelchair * Other Equipment HOME AND PORTABLE OXYGEN - [facility] [phone] SLIDE BOARD, OVER COMMODE CHAIR * List name and contact numbers for known caregivers / representatives who currently or will assist patient after discharge: NYASIA ROSALES DTR, * Verbal permission to speak to the caregivers and representatives has been obtained from the patient. N/A * Community resources currently utilized Private Duty Care * Please name any agencies selected above. [facility] (100 HOURS PER MONTH) DAUGHTER IS PAID CAREGIVER IN HOME * Additional services required to return to the preadmission environment? Yes * Can the patient safely return to the preadmission environment? Yes * Has this patient been hospitalized within the prior 30 days at any hospital? No Coverage Notice Reviewer: [id number] - Hernando Yan Notice Issued Date-Time: 08/01/2019 16:05 Notice Type: Patient Choice Letter Notice Delivered To: Patient Relationship to Patient: Carton Maker Name: Delivery Method: HAND - Hand Delivered Rashmi Days: Prior Verbal Notification: Recipient Understood Notice: Yes Recipient Signature: Yes Med Rec Note Co-signed by Attending: Coverage Notice Comment: [facility] Last DP export: 08/01/19 3:25 Patient Name: SARAH ROBERTS Page 40096 at 1632 All edits/amendments must be made on the electronic document DICTATION DATE: 08/01/19 1632 RIPRAP MAN: LIN 08/01/19 1632 RPT#: [id number] DC DATE: STATUS: ADM IN [facility] [address] [facility] [place] [address] END OF REPORT
[2019-08-01 17:05] VITALS: BP 120/82
--- NOTE | 2019-08-01 21:29 | NUR ---
HS MEDS GIVEN WITH FRESH ICE WATER. PT DENIES NEEDS, BED LOW, CL IN REACH.
[2019-08-01 21:48] VITALS: BP 128/77
[2019-08-02 00:30] VITALS: BP 109/77
--- NOTE | 2019-08-02 04:26 | NUR ---
RESTING WITH EYES CLOSED, RESPERATIONS EVEN, NO S/S DISTRESS NOTED.
[2019-08-02 04:30] VITALS: BP 124/90
[2019-08-02 05:03] LABS: BASOPHILS 0.3 % (0-2); EOSINOPHILS 1.9 % (0-7); HEMOGLOBIN 11.4 g/dL (12-16); IMMATURE GRANULOCYTES 0.1 % (0-5); LYMPHOCYTES 48.4 % (15-50); MCH 23.8 pg (26.0-34.0); MCV 79.5 fL (80.0-100.0); MEAN PLATELET VOLUME 9.9 fL (7.4-10.4); MONOCYTES 6.2 % (2-11); NEUTROPHILS 43.1 % (40-80); PLATELET COUNT 307 10x3/uL (130-400); RBC 4.78 10x6/uL (4.00-5.40); RDW 14.3 % (11.5-14.5)
[2019-08-02 05:24] LABS: ANION GAP 13.1 mmol/L (8-16); CALCIUM 9.4 mg/dL (8.5-10.1); CARBON DIOXIDE 25.7 mmol/L (21.0-32.0); POTASSIUM - SERUM 3.8 mmol/L (3.5-5.1)
[2019-08-02 09:05] VITALS: BP 134/93
--- NOTE | 2019-08-02 11:27 | NUR ---
CM ADVISED THAT THE PATIENT HAS A DISCHARGE ORDER. SHE UTILIZES MEDICAID TRANSPORT VAN FOR TRANSPORTTION TO HOME. MEDICAID VAN TRANSPORT IS NOT AVAILABLE ON THE WEEKEND PER PREVIOUS CM NOTE. THE PATIENT ALSO HAS HER ELECTRIC WHEELCHAIR WHICH CANNOT BE TRANSPORTED BY CAR OR AMBULANCE. BULL GANG WORKER IS COGNIZANT OF TRANSPORT ISSUE. CM ADVISED BULL GANG WORKER A HOME HEALTH ORDER WILL BE NECESSARY TO COMPLETE ARRANGEMENTS FOR SERVICES. CM WILL ALSO ADVISE PRIMARY NURSE.
--- NOTE | 2019-08-02 11:30 | NUR ---
BLOOD SUGAR OF 349, 20UNITS OF INSULIN GIVEN PER S/S. PT DENIES ANY NEEDS AT THIS TIME, CALL LIGHT IN REACH, NAD NOTED, WILL CONTINUE TO MONITOR.
--- NOTE | 2019-08-02 11:36 | NUR ---
PT DOES NOT HAVE RIDE TO GO HOME NEEDS MEDICAID TRANSPORT AND THEY ARE CLOSED ON THE WEEKEND. PT UNABLE TO GET A RIDE SINCE ALL HER FAMILY LEAVE OUT OF TOWN.
--- NOTE | 2019-08-02 16:38 | NUR ---
BLOOD SUGAR OF 219, 12UNITS GIVEN PER S/S. ALSO GAVE 24UNITS OF HUMALOG MIX 50/50. PT RESTING COMFORTABLY IN BED, DENIES ANY NEEDS AT THIS TIME CALL LIT IN REACH,NAD NOTED, WILL CONTINUE TO MONITOR.
[2019-08-02 18:28] VITALS: BP 102/59
--- NOTE | 2019-08-02 19:15 | NUR ---
RECEIVED REPORT, WILL ASSUME CARE OF PT, DENIES ANY NEEDS AT THIS TIME, BED IS LOW, SRX2, CALL LIGHT IN REACH, WILL CONTINUE PLAN OF CARE
[2019-08-02 20:00] VITALS: BP 122/80
--- NOTE | 2019-08-02 21:30 | NUR ---
EVENING MEDS GIVEN WITH DAVID, BS-[id number], COVERED 20 UNITS OF HUMULIN, DENIES ANY NEEDS AT THIS TIME, BED IS LOW, SRX2, CALL LIGHT IN REACH, WILL CONTINUE PLAN OF CARE
[2019-08-03 00:05] VITALS: BP 106/64
--- NOTE | 2019-08-03 01:32 | NUR ---
COMPLAINS OF L.AKA PAIN, GAVE TRAMADOL ORDERED
[2019-08-03 04:36] VITALS: BP 108/69
[2019-08-03 05:23] LABS: HEMOGLOBIN 11.2 g/dL (12-16); MCH 23.4 pg (26.0-34.0); MCHC 29.5 g/dL (31.0-37.0); MCV 79.3 fL (80.0-100.0); MEAN PLATELET VOLUME 10.3 fL (7.4-10.4); PLATELET COUNT 302 10x3/uL (130-400); RBC 4.79 10x6/uL (4.00-5.40); RDW 14.2 % (11.5-14.5); WBC 6.9 10x3/uL (4.8-10.8)
[2019-08-03 05:32] LABS: ANION GAP 13.9 mmol/L (8-16); CALCIUM 9.6 mg/dL (8.5-10.1); CARBON DIOXIDE 25.9 mmol/L (21.0-32.0); CREATININE - SERUM 1.2 mg/dL (0.6-1.3); POTASSIUM - SERUM 3.8 mmol/L (3.5-5.1)
--- NOTE | 2019-08-03 06:00 | NUR ---
I have reviewed this patient and I concur with the Shift Assessment completed by the Licensed Practical Nurse today this shift.
[2019-08-03 07:01] LABS: LYMPHOCYTES 56 % (15-50); MONOCYTES 7 % (2-11); NEUTROPHILS 37 % (40-80); PLATELET ESTIMATE NORMAL
[2019-08-03 07:35] VITALS: BP 93/62
--- NOTE | 2019-08-03 08:51 | NUR ---
AM MEDS GIVEN AT THIS TIME. PT IN BED, A/O X4, RESP EVEN AND NONLABORED ON RA. LT AC IV SL. MONITOR SHOWING ST WITH RATE OF 104. PT DENIES ANY OTHER NEEDS AT THIS TIME. CALL LIGHT IN REACH, NAD NOTED, WILL CONTINUE TO MONITOR.
--- NOTE | 2019-08-03 11:12 | NUR ---
SPOKE WITH DR. TESFAYE AND INFORMED HIM OF REASON WHY PT WAS NOT D/C YESTERDAY.
[2019-08-03 11:28] VITALS: BP 103/62
--- NOTE | 2019-08-03 11:39 | NUR ---
BLOOD SUGAR OF 303, 20UNITS OF HUMULIN GIVEN PER S/S. ALSO GAVE HUMALOG 50/50 ORDERED. PT DENIES ANY NEEDS AT THIS TIME. CALL LIGHT IN REACH, NAD NOTED, WILL CONTINUE TO MONITOR.
--- NOTE | 2019-08-03 19:15 | NUR ---
RECEIVED REPORT, WILL ASSUME CARE OF PT, SITTING IN WHEELCHAIR, DENIES ANY NEEDS, STATES SHE IS READY TO GO HOME IN AM, CALL LIGHT IN REACH, WILL CONTINUE PLAN OF CARE
[2019-08-03 20:45] VITALS: BP 121/90
[2019-08-04 00:15] VITALS: BP 114/81
[2019-08-04 04:18] VITALS: BP 118/71
--- NOTE | 2019-08-04 08:10 | NUR ---
ASSESSMENT DONE. DENIES NEEDS
[2019-08-04 09:20] VITALS: BP 94/73
--- NOTE | 2019-08-04 09:58 | NUR ---
I have reviewed this patient and I concur with the Shift Assessment completed by the Licensed Practical Nurse today this shift.
[2019-08-04 12:10] VITALS: BP 138/90
--- NOTE | 2019-08-04 12:38 | MORECARE ---
CASE MANAGEMENT DISCHARGE SUMMARY PATIENT: SARAH ROBERTS JOHN UNIT: [id number] ADM DATE: 07/28/19 AGE: 64 : 57 SEX: F ROOM/BED: D.4359 AUTHOR: GIORGI,DOC PHYSICIAN: REFERRING PHYSICIAN: BRITTON DAVALOS MD DATE OF SERVICE: 08/04/19 Discharge Plan Patient Name: SARAH ROBERTS Facility: [facility]:[place] : 1955 Planned Disposition: Home with Home Health Anticipated Discharge Date: 08/04/19 Discharge Date: Expected LOS: 7 Initial Reviewer: [id number] Initial Review Date: 08/01/2019 Generated: 08/04/19 1:38 pm Comments DCP- Discharge Planning Updated by [id number]: Hernando Yan on 08/01/19 3:[address] Patient Name: SARAH ROBERTS Admission Status: Urgent Accout number: [id number] Admission Date: 07-28-2019 : 1955 Admission Diagnosis: Attending: BRITTON DAVALOS Current LOS: 4 Anticipated DC Date: Planned Disposition: Home with Home Health Primary Insurance: MEDICARE A & B PLANNED EXTERNAL PROVIDER: [facility] Discharge Planning Comments: CM MET WITH PT IN ROOM TO DISCUSS DISCHARGE PLANNING AND NEEDS. PT REPORTS LIVING AT HOME ALONE, DEPENDENT ON DAUGHTER WHO IS PAID CAREGIVER FOR 100 HOURS PER MONTH WITH [facility]. PT HAS REQUIRES ASSISTANCE WITH MEDICATION MANAGEMENT AND BATHING. PT HAS HOME AND PORTABLE OXYGEN FROM [employer], ELECTRIC WHEELCHAIR FROM [employer], MANUAL WHEELCHAIR, SLIDE BORAD, SHOEWR CHAIR AND OVER THE COMMODE CHAIR. PT HAS NO HOME HEALTH NOW, BUT THINKS SHE WILL NEED IT AND WANTS [facility] (LATER DETERMINED TO BE [facility] FOR HOME HEALTH. CM DISCUSSED AVAILABILITY OF HOME HEALTH, REHAB SERVICES AND MEDICAL EQUIPMENT. PT DENIES REHAB PLACEMENT NEEDS, WANTS HOME HEALTH WITH [facility] CHOICE SIGNED. PT REPORTS SHE WILL NEED CM TO CALL MEDICAID TRANSPORT TO PICK HER UP FOR DISCHARGE HOME. PT HAS ELECTRIC WHEELCHAIR IN ROOM WITH HER. CM CALLED [facility], VERIFIED PT HAS HAD SERVICES WITH THEM IN THE PAST, ANANYA STATES THEY WILL ACCEPT BACK WITH HOME HEALTH ORDERS. TELEPHONE [phone], FAX [phone]. TO ARRANGE HOME HEALTH FOR DISCHARGE HOME WITH PHYSICIAN AGREEMENT AND ORDERS. PT WILL NEED MEDICAID TRANSPORTATION THAT IS ONLY AVAILABLE ON WEEKDAYS FOR TRANSPORTATION HOME. Bow Maker Custom: Hernando Yan DCPIA - Discharge Planning Initial Assessment Updated by TEREZA: Hernando Yan on 08/01/19 4:26 pm * Is the patient Alert and Oriented? Yes * How many steps to enter\exit or inside your home? NONE * PCP [facility] * [facility]acy [facility] * Preadmission Environment Home Alone * ADLs Partial Dependent * Partial ADLs (Assistance needed) Bathing Medication Management * Equipment Other Oxygen Power Chair or Electric Scooter Shower Chair Wheelchair * Other Equipment HOME AND PORTABLE OXYGEN - [employer] [phone] SLIDE BOARD, OVER COMMODE CHAIR * List name and contact numbers for known caregivers / representatives who currently or will assist patient after discharge: NYASIA ROSALES DTR, * Verbal permission to speak to the caregivers and representatives has been obtained from the patient. N/A * Community resources currently utilized Private Duty Care * Please name any agencies selected above. [facility] (100 HOURS PER MONTH) DAUGHTER IS PAID CAREGIVER IN HOME * Additional services required to return to the preadmission environment? Yes * Can the patient safely return to the preadmission environment? Yes * Has this patient been hospitalized within the prior 30 days at any hospital? No Coverage Notice Reviewer: [email or web address] Yan Notice Issued Date-Time: 08/01/2019 16:05 Notice Type: Patient Choice Letter Notice Delivered To: Patient Relationship to Patient: Flame Planer Name: Delivery Method: HAND - Hand Delivered Rashmi Days: Prior Verbal Notification: Recipient Understood Notice: Yes Recipient Signature: Yes Med Rec Note Co-signed by Attending: Coverage Notice Comment: [facility] Reviewer: [id number] Huber Yan Notice Issued Date-Time: 08/04/2019 12:15 Notice Type: IM Discharge Notice Notice Delivered To: Patient Relationship to Patient: Flame Planer Name: Delivery Method: HAND - Hand Delivered Rashmi Days: Prior Verbal Notification: Recipient Understood Notice: Yes Recipient Signature: Yes Med Rec Note Co-signed by Attending: Coverage Notice Comment: Last DP export: 08/01/19 3:32 Patient Name: SARAH ROBERTS Page 75691 at 1238 All edits/amendments must be made on the electronic document DICTATION DATE: 08/04/198 FLOWER PLANTER: LIN 08/04/19 1238 RPT#: [id number] DC DATE: STATUS: ADM IN [facility] [address] [place] [address] END OF REPORT
--- NOTE | 2019-08-04 13:56 | MORECARE ---
CASE MANAGEMENT DISCHARGE SUMMARY PATIENT: SARAH ROBERTS JOHN UNIT: [id number] ADM DATE: 07/28/19 AGE: 64 : 57 SEX: F ROOM/BED: D.4754 AUTHOR: GIORGI,DOC PHYSICIAN: REFERRING PHYSICIAN: BRITTON DAVALOS MD DATE OF SERVICE: 08/04/19 Discharge Plan Patient Name: SARAH ROBERTS Facility: [facility]:[place] : 1955 Planned Disposition: Home with Home Health Anticipated Discharge Date: 08/04/19 Discharge Date: Expected LOS: 7 Initial Reviewer: [id number] Initial Review Date: 08/01/2019 Generated: 08/04/19 2:56 pm Comments DCP- Discharge Planning Updated by [id number]: Hernando Yan on 08/04/19 12:[address] Patient Name: SARAH ROBERTS Encounter No: [id number] : 1955 Primary Insurance: MEDICARE A & B Anticipated DC Date: 08-04-2019 Planned Disposition: Home with Home Health External Planned Provider: [facility] Discharge Planning Comments: CM RECEIVED DISCHARGE ORDER, PT HAS BEEN DISCHARGED OVER WEEKEND BUT WAS NOT ABLE TO GET TRANSPORT HOME MEDICAID TRANSPORT DOES NOT RUN ON THE WEEKEND. CM MET WITH PT IN ROOM TO DISCUSS DISCHARGE PLANNING AND NEEDS. CM DISCUSSED AVAILABILITY OF HOME HEALTH, REHAB SERVICES AND MEDICAL EQUIPMENT. PT WANTS HOME HEALTH WITH [facility]. CHOICE PREVIOUSLY SIGNED. PT REPORTS SHE WILL NEED CM TO CALL MEDICAID TRANSPORT TO PICK HER UP FOR DISCHARGE HOME TODAY. CM VERIFIED DISCHARGE ADDRESS AND PHONE NUMBER. CM CALLED [facility], , VERIFIED PT HAS HAD SERVICES WITH THEM IN THE PAST, LAURY WILL CALL PT'S PRIMARY DOCTOR FOR HOME HEALTH ORDERS. THEY WILL ACCEPT IF THE PRIMARY CARE DOCTOR WILL FOLLOW FOR HOME HEALTH ORDERS. CM FAXED REFERRAL AND DISCHARGE INFORMATION TO [facility] AT [phone]. CM CALLED MEDICAID TRANSPORTATION, , SPOKE TO TRI WHO ARRANGED CLIP BOLTER AND WRAPPER FOR TODAY, MEDICAID BUS WILL CALL PURCHASING MANAGER/SALES UPON ARRIVAL AT FRONT DOOR. THEY ARE AWARE PT IS IN ELECTRIC WHEELCHAIR. CONFIRMATION NUMBER [id number]. PT, BEDSIDE NURSE AND APPEALS RN NURSE NOTIFIED. Harvester Operator: Hernando Yan DCP- Discharge Planning Updated by [id number]: Hernando Yan on 08/01/19 3:[address] Patient Name: SARAH ROBERTS Admission Status: Urgent Accout number: [id number] Admission Date: 07-28-2019 : 1955 Admission Diagnosis: Attending: BRITTON DAVALOS Current LOS: 4 Anticipated DC Date: Planned Disposition: Home with Home Health Primary Insurance: MEDICARE A & B PLANNED EXTERNAL PROVIDER: [facility] Discharge Planning Comments: CM MET WITH PT IN ROOM TO DISCUSS DISCHARGE PLANNING AND NEEDS. PT REPORTS LIVING AT HOME ALONE, DEPENDENT ON DAUGHTER WHO IS PAID CAREGIVER FOR 100 HOURS PER MONTH WITH [facility]. PT HAS REQUIRES ASSISTANCE WITH MEDICATION MANAGEMENT AND BATHING. PT HAS HOME AND PORTABLE OXYGEN FROM [employer], ELECTRIC WHEELCHAIR FROM [employer], MANUAL WHEELCHAIR, SLIDE BORAD, SHOEWR CHAIR AND OVER THE COMMODE CHAIR. PT HAS NO HOME HEALTH NOW, BUT THINKS SHE WILL NEED IT AND WANTS [facility] (LATER DETERMINED TO BE [facility]) FOR HOME HEALTH. CM DISCUSSED AVAILABILITY OF HOME HEALTH, REHAB SERVICES AND MEDICAL EQUIPMENT. PT DENIES REHAB PLACEMENT NEEDS, WANTS HOME HEALTH WITH [facility]. CHOICE SIGNED. PT REPORTS SHE WILL NEED TO CALL MEDICAID TRANSPORT TO PICK HER UP FOR DISCHARGE HOME. PT HAS ELECTRIC WHEELCHAIR IN ROOM WITH HER. CM CALLED [facility] [place], VERIFIED PT HAS HAD SERVICES WITH THEM IN THE PAST, ANANYA STATES THEY WILL ACCEPT BACK WITH HOME HEALTH ORDERS. TELEPHONE [phone], FAX [phone]. CM TO ARRANGE HOME HEALTH FOR DISCHARGE HOME WITH PHYSICIAN AGREEMENT AND ORDERS. PT WILL NEED MEDICAID TRANSPORTATION THAT IS ONLY AVAILABLE ON WEEKDAYS FOR TRANSPORTATION HOME. Harvester Operator: Hernando Yan DCPIA - Discharge Planning Initial Assessment Updated by [id number]: Hernando Yan on 08/01/19 4:26 pm * Is the patient Alert and Oriented? Yes * How many steps to enter\exit or inside your home? NONE * PCP [facility], [place] * [facility]acy [facility] * Preadmission Environment Home Alone * ADLs Partial Dependent * Partial ADLs (Assistance needed) Bathing Medication Management * Equipment Other Oxygen Power Chair or Electric Scooter Shower Chair Wheelchair * Other Equipment HOME AND PORTABLE OXYGEN - [employer] [phone] SLIDE BOARD, OVER COMMODE CHAIR * List name and contact numbers for known caregivers / representatives who currently or will assist patient after discharge: NYASIA ROSALES DTR, * Verbal permission to speak to the caregivers and representatives has been obtained from the patient. N/A * Community resources currently utilized Private Duty Care * Please name any agencies selected above. [facility] (100 HOURS PER MONTH) DAUGHTER IS PAID CAREGIVER IN HOME * Additional services required to return to the preadmission environment? Yes * Can the patient safely return to the preadmission environment? Yes * Has this patient been hospitalized within the prior 30 days at any hospital? No Coverage Notice Reviewer: TEREZA Yan Notice Issued Date-Time: 08/01/2019 16:05 Notice Type: Patient Choice Letter Notice Delivered To: Patient Relationship to Patient: Manager Traffic Name: Delivery Method: HAND - Hand Delivered Rashmi Days: Prior Verbal Notification: Recipient Understood Notice: Yes Recipient Signature: Yes Med Rec Note Co-signed by Attending: Coverage Notice Comment: [facility] Reviewer: [id number] Yan Notice Issued Date-Time: 08/04/2019 12:15 Notice Type: IM Discharge Notice Notice Delivered To: Patient Relationship to Patient: Manager Traffic Name: Delivery Method: HAND - Hand Delivered Rashmi Days: Prior Verbal Notification: Recipient Understood Notice: Yes Recipient Signature: Yes Med Rec Note Co-signed by Attending: Coverage Notice Comment: Last DP export: 08/04/19 11:38 Patient Name: SARAH ROBERTS Page [phone] at 1356 All edits/amendments must be made on the electronic document DICTATION DATE: 08/04/19 1356 SAW SHARPENER: LIN 08/04/19 1356 RPT#: [id number] DC DATE: STATUS: ADM IN [facility] [address] [place] [address] END OF REPORT
--- NOTE | 2019-08-04 14:30 | NUR ---
DC GIVEN TO PT
--- NOTE | 2019-08-04 15:19 | NUR ---
DC HOME PER [facility]
--- NOTE | 2019-08-05 15:25 | MORECARE ---
CASE MANAGEMENT DISCHARGE SUMMARY PATIENT: SARAH ROBERTS JOHN UNIT: [id number] ADM DATE: 07/28/19 AGE: 64 : 57 SEX: F ROOM/BED: D.5466 AUTHOR: GIORGI,DOC PHYSICIAN: REFERRING PHYSICIAN: BRITTON DAVALOS MD DATE OF SERVICE: 08/05/19 Discharge Plan Patient Name: SARAH ROBERTS Facility: [facility]:[place] : 1955 Planned Disposition: Home with Home Health Anticipated Discharge Date: 08/04/19 Discharge Date: 08/04/2019 Expected LOS: 7 Initial Reviewer: [id number] Initial Review Date: 08/01/2019 Generated: 08/05/19 4:25 pm Comments DCP- Discharge Planning Updated by [email or web address]: Hernando Yan on 08/05/19 2:[address] Patient Name: SARAH ROBERTS Encounter No: [id number] : 1955 Primary Insurance: MEDICARE A & B Anticipated DC Date: 08-04-2019 Planned Disposition: Home DCP follow-up note: CM RECEIVED CALL FROM [facility] THEY WENT OUT AND ATTEMPTED TO ADMIT FOR HOME HEALTH SERVICES TODAY; PT REFUSED HOME HEALTH SERVICES. JASSI Goldberg DCP- Discharge Planning Updated by [id number]: Hernando Yan on 08/04/19 12:[address] Patient Name: SARAH ROBERTS Encounter No: [id number] : 1955 Primary Insurance: MEDICARE A & B Anticipated DC Date: 08-04-2019 Planned Disposition: Home with Home Health External Planned Provider: [facility] Discharge Planning Comments: CM RECEIVED DISCHARGE ORDER, PT HAS BEEN DISCHARGED OVER WEEKEND BUT WAS NOT ABLE TO GET TRANSPORT HOME MEDICAID TRANSPORT DOES NOT RUN ON THE WEEKEND. CM MET WITH PT IN ROOM TO DISCUSS DISCHARGE PLANNING AND NEEDS. CM DISCUSSED AVAILABILITY OF HOME HEALTH, REHAB SERVICES AND MEDICAL EQUIPMENT. PT WANTS HOME HEALTH WITH [facility]. PATEL PREVIOUSLY SIGNED. PT REPORTS SHE WILL NEED CM TO CALL MEDICAID TRANSPORT TO PICK HER UP FOR DISCHARGE HOME TODAY. CM VERIFIED DISCHARGE ADDRESS AND PHONE NUMBER. CM CALLED [facility] [place], , VERIFIED PT HAS HAD SERVICES WITH THEM IN THE PAST, LAURY WILL CALL PT'S PRIMARY DOCTOR FOR HOME HEALTH ORDERS. THEY WILL ACCEPT IF THE PRIMARY CARE DOCTOR WILL FOLLOW FOR HOME HEALTH ORDERS. CM FAXED REFERRAL AND DISCHARGE INFORMATION TO [facility] AT [phone]. CM CALLED MEDICAID TRANSPORTATION, , SPOKE TO TRI WHO ARRANGED CREW CALLER FOR TODAY, MEDICAID BUS WILL CALL DIRECTOR PAYER UPON ARRIVAL AT FRONT DOOR. THEY ARE AWARE PT IS IN ELECTRIC WHEELCHAIR. CONFIRMATION NUMBER [id number]. PT, BEDSIDE NURSE AND OYSTER FARMER NURSE NOTIFIED. Music Adapter: Hernando Yan DCP- Discharge Planning Updated by [id number]: Hernando Yan on 08/01/19 3:[address] Patient Name: SARAH ROBERTS Admission Status: Urgent Accout number: [id number] Admission Date: 07-28-2019 : 1955 Admission Diagnosis: Attending: BRITTON DAVALOS Current LOS: 4 Anticipated DC Date: Planned Disposition: Home with Home Health Primary Insurance: MEDICARE A & B PLANNED EXTERNAL PROVIDER: [facility] Discharge Planning Comments: CM MET WITH PT IN ROOM TO DISCUSS DISCHARGE PLANNING AND NEEDS. PT REPORTS LIVING AT HOME ALONE, DEPENDENT ON DAUGHTER WHO IS PAID CAREGIVER FOR 100 HOURS PER MONTH WITH [facility]. PT HAS REQUIRES ASSISTANCE WITH MEDICATION MANAGEMENT AND BATHING. PT HAS HOME AND PORTABLE OXYGEN FROM [employer], ELECTRIC WHEELCHAIR FROM [employer] MANUAL WHEELCHAIR, SLIDE BORAD, SHOEWR CHAIR AND OVER THE COMMODE CHAIR. PT HAS NO HOME HEALTH NOW, BUT THINKS SHE WILL NEED IT AND WANTS [facility] (LATER DETERMINED TO BE [facility]) FOR HOME HEALTH. CM DISCUSSED AVAILABILITY OF HOME HEALTH, REHAB SERVICES AND MEDICAL EQUIPMENT. PT DENIES REHAB PLACEMENT NEEDS, WANTS HOME HEALTH WITH [facility]. CHOICE SIGNED. PT REPORTS SHE WILL NEED CM TO CALL MEDICAID TRANSPORT TO PICK HER UP FOR DISCHARGE HOME. PT HAS ELECTRIC WHEELCHAIR IN ROOM WITH HER. CM [facility]ED [facility], VERIFIED PT HAS HAD SERVICES WITH THEM IN THE PAST, ANANYA STATES THEY WILL ACCEPT BACK WITH HOME HEALTH ORDERS. TELEPHONE [phone], FAX [phone]. CM TO ARRANGE HOME HEALTH FOR DISCHARGE HOME WITH PHYSICIAN AGREEMENT AND ORDERS. PT WILL NEED MEDICAID TRANSPORTATION THAT IS ONLY AVAILABLE ON WEEKDAYS FOR TRANSPORTATION HOME. Music Adapter: Hernando Yan DCPIA - Discharge Planning Initial Assessment Updated by [id number]: Hernando Yan on 08/01/19 4:26 pm * Is the patient Alert and Oriented? Yes * How many steps to enter\exit or inside your home? NONE * PCP [facility] [place] * [facility] * Preadmission Environment Home Alone * ADLs Partial Dependent * Partial ADLs (Assistance needed) Bathing Medication Management * Equipment Other Oxygen Power Chair or Electric Scooter Shower Chair Wheelchair * Other Equipment HOME AND PORTABLE OXYGEN - [employer] [phone] SLIDE BOARD, OVER COMMODE CHAIR * List name and contact numbers for known caregivers / representatives who currently or will assist patient after discharge: NYASIA ROSALES DTR, * Verbal permission to speak to the caregivers and representatives has been obtained from the patient. N/A * Community resources currently utilized Private Duty Care * Please name any agencies selected above. [facility] ([facility] HOURS PER MONTH) DAUGHTER IS PAID CAREGIVER IN HOME * Additional services required to return to the preadmission environment? Yes * Can the patient safely return to the preadmission environment? Yes * Has this patient been hospitalized within the prior 30 days at any hospital? No Coverage Notice Reviewer: [id number] Yan Notice Issued Date-Time: 08/01/2019 16:05 Notice Type: Patient Choice Letter Notice Delivered To: Patient Relationship to Patient: Pocket Grinder Operator Name: Delivery Method: HAND - Hand Delivered Rashmi Days: Prior Verbal Notification: Recipient Understood Notice: Yes Recipient Signature: Yes Med Rec Note Co-signed by Attending: Coverage Notice Comment: [facility] Reviewer: [id number] Huber Yan Notice Issued Date-Time: 08/04/2019 12:15 Notice Type: IM Discharge Notice Notice Delivered To: Patient Relationship to Patient: Pocket Grinder Operator Name: Delivery Method: HAND - Hand Delivered Rashmi Days: Prior Verbal Notification: Recipient Understood Notice: Yes Recipient Signature: Yes Med Rec Note Co-signed by Attending: Coverage Notice Comment: Last DP export: 08/04/19 12:56 Patient Name: SARAH ROBERTS Page 59988 at 1525 All edits/amendments must be made on the electronic document DICTATION DATE: 08/05/19 1525 INDUSTRIAL ENGINEERING TECHNOLOGIST: LIN 08/05/19 1525 RPT#: [id number] DC DATE:08/04/19 STATUS: DIS IN [facility] [address] [place] [address] END OF REPORT
== END 2019-08-04 15:23 | disposition home or self-care (01) | DRG 65 ==
LOC: D.M2 15:18
PROVIDERS: Internal Medicine Nephrology; ADMIT Internal Medicine Cardiovascular Disease; ATTEND Internal Medicine Cardiovascular Disease
DX: I63.9 Cerebral infarction, unspecified (principal); N17.9 Acute kidney failure, unspecified; G81.94 Hemiplegia, unspecified affecting left nondominant side; I65.21 Occlusion and stenosis of right carotid artery; I67.2 Cerebral atherosclerosis; D64.9 Anemia, unspecified; I10 Essential (primary) hypertension; E11.9 Type 2 diabetes mellitus without complications; K21.9 Gastro-esophageal reflux disease without esophagitis; J44.9 Chronic obstructive pulmonary disease, unspecified; E03.9 Hypothyroidism, unspecified; F32.9 Major depressive disorder, single episode, unspecified

== ENCOUNTER → 2020-10-27 09:39 | Outpatient (CLI) | payer MEDICARE ==
[2019-09-11 13:42] VITALS: BMI 25.3
[~2020-10-27 09:39] MED LIST changes: +ELIQUIS5 MG PO; +HUMALOG MI100 UNITS/ SC; +HUMULIN R100 UNIT/1 SC; +HYDROCODON-ACE1 EA10 PO; +Lantus Insulin SC; +ROBITUSSIN DM 110 ML PO
== END | disposition home or self-care (01) ==
LOC: D.US 09:30
PROVIDERS: ATTEND Thoracic Surgery (Cardiothoracic Vascular Surgery)
DX: I65.23 Occlusion and stenosis of bilateral carotid arteries (principal)